=== PATIENT | male | born 1945 | race Caucasian/White ===

== ENCOUNTER 2022-09-04 08:58 | Outpatient (CLI) | payer MEDICARE, SELFPAY ==
[2022-09-04 19:06] LABS: Basophils Percent Auto 0.8 % (0.2-1.2); Eosinophils Absolute Auto 0.2 K/mm3 (0-0.3); Hematocrit 38.9 % (42.0-52.0); Hemoglobin 12.5 g/dL (14.0-18.0); Immature Granulocyte Absolute 0.01 K/mm3 (0.00-0.031); Immature Granulocyte Percent A 0.2 % (0-0.5); Lymphocytes Absolute Auto 0.84 K/mm3 (0.9-3.2); Mean Corpuscular HGB Conc 32.1 g/dl (32-36); Mean Corpuscular Hemoglobin 32.8 pg (26-34); Mean Corpuscular Volume 102.1 fl (80-100); Mean Platelet Volume 9.8 fl (7.4-10.4); Monocytes Absolute Auto 0.3 K/mm3 (0.1-0.6); Monocytes Percent Auto 6.9 % (2.6-8.5); Neutrophils Absolute Auto 3.6 K/mm3 (1.3-6.7); Neutrophils Percent Auto 72.1 % (45.5-73.1); Platelet Count Result 272 k/mm3 (150-375); Red Blood Count 3.81 M/mm3 (4.6-6.20); Red Cell Distribution Width 14.9 % (11.5-14.5); White Blood Count 4.9 K/mm3 (4.5-10.0)
[2022-09-04 19:46] LABS: Creatinine Urine 31.5 mg/dL
[2022-09-04 20:10] LABS: MALB Creatinine Ratio < 19.0 mg/g (0-30); Microalbumin Urine Random < 6.0 mg/L (0-16.7)
[2022-09-04 20:14] LABS: Alanine Aminotransferase 27 U/L (6-50); Albumin Level 4.5 g/dL (3.5-5.1); Alkaline Phosphatase 79 U/L (38-126); Anion Gap 15 mmol/L (8-16); Aspartate Amino Transferase 63 U/L (17-59); Bilirubin,Total 0.2 mg/dL (0.2-1.3); Blood Urea Nitrogen 17 mg/dL (9-20); Calcium 9.7 mg/dL (8.4-10.2); Carbon Dioxide 26 mmol/L (22-30); Chloride 98 mmol/L (98-107); Cholesterol 171 mg/dL (0-200); Estimated Glomerular Filt Rate > 60; Glucose 264 mg/dL (65-110); HDL Direct 45 mg/dL; Potassium 4.6 mmol/L (3.4-5.0); Sodium 139 mmol/L (137-145); Triglycerides 198 mg/dL (<150)
[2022-09-04 20:25] LABS: LDL Cholesterol Direct 64 mg/dL
[2022-09-04 21:02] LABS: Hemoglobin A1C 6.7 % (<5.7)
== END 2022-09-04 08:59 | disposition home or self-care (01) ==
PROVIDERS: PCP Internal Medicine; Visit Provider Internal Medicine
DX: E11.9 Type 2 diabetes mellitus without complications (principal); D64.9 Anemia, unspecified; D68.61 Antiphospholipid syndrome
CPT/HCPCS: 36415; 80053; 80061; 82043; 83036; 85025

== ENCOUNTER 2022-10-01 08:53 | Outpatient (CLI) | payer MEDICARE, SELFPAY ==
[2022-10-01 19:31] LABS: Alanine Aminotransferase 27 U/L (6-50); Albumin Level 4.6 g/dL (3.5-5.1); Alkaline Phosphatase 93 U/L (38-126); Aspartate Amino Transferase 36 U/L (17-59); Bilirubin,Total 0.3 mg/dL (0.2-1.3)
[2022-10-03 14:20] LABS: GGT 27 U/L (3-70)
== END 2022-10-01 08:54 | disposition home or self-care (01) ==
PROVIDERS: PCP Internal Medicine; Visit Provider Internal Medicine
DX: R74.8 Abnormal levels of other serum enzymes (principal)
CPT/HCPCS: 36415; 80076; 82977

== ENCOUNTER 2023-02-13 11:36 | Outpatient (CLI) | payer MEDICARE, SELFPAY ==
[2023-02-13 19:20] LABS: Hematocrit 39.8 % (42.0-52.0); Hemoglobin 12.8 g/dL (14.0-18.0); Mean Corpuscular HGB Conc 32.2 g/dl (32-36); Mean Corpuscular Hemoglobin 32.7 pg (26-34); Mean Corpuscular Volume 101.8 fl (80-100); Platelet Count Result 200 k/mm3 (150-375); Red Blood Count 3.91 M/mm3 (4.6-6.20); Red Cell Distribution Width 14.4 % (11.5-14.5); White Blood Count 4.8 K/mm3 (4.5-10.0)
[2023-02-13 19:35] LABS: Hemoglobin A1C 6.7 % (<5.7)
[2023-02-13 19:47] LABS: Alanine Aminotransferase 50 U/L (6-50); Alkaline Phosphatase 111 U/L (38-126); Anion Gap 4 mmol/L (8-16); Aspartate Amino Transferase 54 U/L (17-59); Bilirubin,Total 0.3 mg/dL (0.2-1.3); Blood Urea Nitrogen 14 mg/dL (9-20); Calcium 9.9 mg/dL (8.4-10.2); Carbon Dioxide 28 mmol/L (22-30); Chloride 103 mmol/L (98-107); Estimated Glomerular Filt Rate > 60; Glucose 108 mg/dL (65-110); Potassium 4.4 mmol/L (3.4-5.0); Sodium 135 mmol/L (137-145)
[2023-02-13 20:11] LABS: Creatinine Urine 86.7 mg/dL
[2023-02-13 20:16] LABS: MALB Creatinine Ratio 16.4 mg/g (0-30); Microalbumin Urine Random 14.2 mg/L (0-16.7)
== END 2023-02-13 11:37 | disposition home or self-care (01) ==
LOC: ANHGOSHLAB 11:37
PROVIDERS: PCP Internal Medicine; Visit Provider Internal Medicine
DX: D64.9 Anemia, unspecified (principal); E11.9 Type 2 diabetes mellitus without complications; D68.61 Antiphospholipid syndrome
CPT/HCPCS: 36415; 80053; 82043; 83036; 84443; 85027

== ENCOUNTER 2023-06-04 14:07 | Outpatient (CLI) | payer MEDICARE, SELFPAY ==
[2023-06-04 15:08] LABS: Basophils Percent Auto 0.8 % (0.2-1.2); Eosinophils Absolute Auto 0.1 K/mm3 (0-0.3); Eosinophils Percent Auto 2.2 % (0-4.4); Hematocrit 34.5 % (42.0-52.0); Immature Granulocyte Absolute 0.01 K/mm3 (0.00-0.031); Immature Granulocyte Percent A 0.2 % (0-0.5); Lymphocytes Absolute Auto 0.91 K/mm3 (0.9-3.2); Lymphocytes Percent Auto 18.2 % (18.3-44.2); Mean Corpuscular HGB Conc 31.9 g/dl (32-36); Mean Corpuscular Hemoglobin 31.5 pg (26-34); Mean Corpuscular Volume 98.9 fl (80-100); Mean Platelet Volume 9.6 fl (7.4-10.4); Monocytes Absolute Auto 0.3 K/mm3 (0.1-0.6); Monocytes Percent Auto 5.4 % (2.6-8.5); Neutrophils Absolute Auto 3.7 K/mm3 (1.3-6.7); Neutrophils Percent Auto 73.2 % (45.5-73.1); Platelet Count Result 229 k/mm3 (150-375); Red Blood Count 3.49 M/mm3 (4.6-6.20)
[2023-06-04 15:20] LABS: Alanine Aminotransferase 37 U/L (6-50); Albumin Level 3.9 g/dL (3.5-5.1); Alkaline Phosphatase 85 U/L (38-126); Anion Gap 5 mmol/L (8-16); Aspartate Amino Transferase 45 U/L (17-59); Bilirubin,Total 0.2 mg/dL (0.2-1.3); Blood Urea Nitrogen 19 mg/dL (9-20); Calcium 9.3 mg/dL (8.4-10.2); Carbon Dioxide 28 mmol/L (22-30); Chloride 103 mmol/L (98-107); Estimated Glomerular Filt Rate > 60; Glucose 169 mg/dL (65-110); Potassium 4.7 mmol/L (3.4-5.0); Sodium 136 mmol/L (137-145)
[2023-06-05 08:57] LABS: Immature Reticulocyte Fraction 28.1 % (3.0-15.9); Reticulocyte Hemoglobin Conten 32.3 pg (28.2-35.7); Reticulocyte Percent 2.05 % (0.7-4.3); Reticulocytes Absolute 0.07 M/mm3 (0.02-0.1)
== END 2023-06-04 14:08 | disposition home or self-care (01) ==
PROVIDERS: PCP Internal Medicine; Visit Provider Nurse Practitioner
DX: D64.9 Anemia, unspecified (principal)
CPT/HCPCS: 36415; 80053; 85025; 85046

== ENCOUNTER 2023-06-05 09:55 | Outpatient (CLI) | payer MEDICARE, SELFPAY ==
[2023-06-05 10:25] LABS: Immature Reticulocyte Fraction 22.7 % (3.0-15.9); Reticulocyte Hemoglobin Conten 30.8 pg (28.2-35.7); Reticulocyte Percent 2.12 % (0.7-4.3); Reticulocytes Absolute 0.08 M/mm3 (0.02-0.1)
[2023-06-05 10:26] LABS: Hemoglobin 11.4 g/dL (14.0-18.0)
[2023-06-05 10:39] LABS: INR 1.9; Prothrombin Time 22.8 Seconds (11.1-14.7)
[2023-06-05 10:59] LABS: Iron 55 ug/dL (49-181); Iron 60 ug/dL (49-181)
[2023-06-05 11:08] LABS: Percent Iron Saturation 12 % (20-50)
[2023-06-05 11:09] LABS: Percent Iron Saturation 11 % (20-50)
== END 2023-06-05 09:56 | disposition home or self-care (01) ==
PROVIDERS: PCP Internal Medicine; Visit Provider Nurse Practitioner
DX: D64.9 Anemia, unspecified (principal); D68.61 Antiphospholipid syndrome; Z87.19 Personal history of other diseases of the digestive system
CPT/HCPCS: 36415; 82728; 83540; 83550; 85014; 85018; 85046; 85610

== ENCOUNTER 2023-06-08 11:02 | Outpatient (CLI) | payer MEDICARE, SELFPAY ==
[2023-06-08 12:39] LABS: Basophils Percent Auto 0.6 % (0.2-1.2); Eosinophils Absolute Auto 0.1 K/mm3 (0-0.3); Eosinophils Percent Auto 1.7 % (0-4.4); Hematocrit 35.5 % (42.0-52.0); Hemoglobin 11.3 g/dL (14.0-18.0); Immature Granulocyte Absolute 0.03 K/mm3 (0.00-0.031); Immature Granulocyte Percent A 0.4 % (0-0.5); Lymphocytes Absolute Auto 0.77 K/mm3 (0.9-3.2); Lymphocytes Percent Auto 11.1 % (18.3-44.2); Mean Corpuscular HGB Conc 31.8 g/dl (32-36); Mean Corpuscular Hemoglobin 31.7 pg (26-34); Mean Corpuscular Volume 99.7 fl (80-100); Mean Platelet Volume 10.3 fl (7.4-10.4); Monocytes Absolute Auto 0.3 K/mm3 (0.1-0.6); Monocytes Percent Auto 4.5 % (2.6-8.5); Neutrophils Absolute Auto 5.6 K/mm3 (1.3-6.7); Neutrophils Percent Auto 81.7 % (45.5-73.1); Platelet Count Result 233 k/mm3 (150-375); Red Blood Count 3.56 M/mm3 (4.6-6.20); Red Cell Distribution Width 14.1 % (11.5-14.5); White Blood Count 6.9 K/mm3 (4.5-10.0)
== END 2023-06-08 11:03 | disposition home or self-care (01) ==
LOC: ANHLAB 11:03
PROVIDERS: PCP Internal Medicine; Visit Provider Nurse Practitioner
DX: D64.9 Anemia, unspecified (principal)
CPT/HCPCS: 36415; 85025

== ENCOUNTER 2023-06-30 10:33 | Outpatient (CLI) | payer MEDICARE, SELFPAY ==
[2023-06-30 20:13] LABS: Hemoglobin A1C 6.5 % (<5.7)
== END 2023-06-30 10:34 | disposition home or self-care (01) ==
LOC: ANHGOSHLAB 10:36
PROVIDERS: PCP Internal Medicine; Visit Provider Internal Medicine
DX: R53.83 Other fatigue (principal); R06.00 Dyspnea, unspecified; E11.9 Type 2 diabetes mellitus without complications; D64.9 Anemia, unspecified
CPT/HCPCS: 36415; 83036; 84443

== ENCOUNTER → 2023-06-30 10:46 | Outpatient (CLI) | payer MEDICARE, SELFPAY ==
--- NOTE | ~2023-06-30 | XR_ITS ---
Clinical Indication: Shortness of breath PA and lateral views of the chest: Comparison: 06/14/2015 Findings: The lungs are clear, without evidence of focal consolidation or pleural effusion. Cardiome diastinal silhouette is within normal limits. Bones and soft tissues are unremarkable. Impression: Normal chest. Reviewed, dictated and finalized at [facility]. Impression: Normal chest.
== END ==
PROVIDERS: PCP Internal Medicine; Visit Provider Internal Medicine
DX: R06.00 Dyspnea, unspecified (principal); R07.89 Other chest pain; R06.02 Shortness of breath
CPT/HCPCS: 71046

== ENCOUNTER 2023-07-01 12:46 | Outpatient (CLI) | payer MEDICARE, SELFPAY ==
[2023-07-01 13:46] LABS: D Dimer 0.24 ug/mL (<0.48)
[2023-07-01 13:53] LABS: NT Pro B Type Natriuretic Pept 35 pg/mL (19.9-100)
== END 2023-07-01 12:47 | disposition home or self-care (01) ==
PROVIDERS: PCP Internal Medicine; Visit Provider Internal Medicine
DX: D68.61 Antiphospholipid syndrome (principal); R06.00 Dyspnea, unspecified
CPT/HCPCS: 36415; 83880; 85380

== ENCOUNTER 2023-07-06 14:39 | Outpatient (CLI) | payer MEDICARE, SELFPAY ==
--- NOTE | 2023-07-06 14:51 | ECHO_ITS ---
Patient Info Name: Aayush Mendoza Age: 77 years : 1945 Gender: Male Ht: 70 in Wt: 205 lbs BSA: 2.17 m2 HR: 68 bpm BP: 148 / 82 mmHg Heart Rhythm: Sinus Rhythm Technical Quality: Fair Exam Date: 07/06/2023 3:03 PM Exam Location: [facility] Pulmonary Patient Status: Outpatient Admit Date: 07/06/2023 Staff Ordering Physician: Rosamaria Canseco NP Pipe Smoking Machine Offbearer: Keya Smith RDCS Attending Provider: Rosamaria Canseco NP Referring Physician: Ajith WAGNER; Exam Type: CA echo dop color flow w con Study Info Indications - unspecified right bundle brance block Complete two-dimensional, color flow and Doppler transthoracic echocardiogram is performed with contrast to opacify the left ventricle and to improve the deliniation of the left ventricle endocardial borders. Contrast/Agitated Saline Contrast/Ag. Saline: Definity Amount: 2.00 ml Administered By: Keya Smith [facility] Existing IV Access: Yes IV Access Condition: patent with no signs of infiltration Summary 1. Left ventricular chamber dimension is normal. 2. Definity contrast administered improved wall motion interpretation. 3. Left ventricular systolic function is normal, estimated at 55-60%. 4. There is mild concentric increased left ventricular wall thickness. 5. The left ventricular diastolic function is grade I diastolic dysfunction. 6. E/e' 9 is minimally elevated. 7. Left atrial chamber dimension is mildly enlarged. 8. There is mild aortic valve sclerosis. 9. There is trace mitral valve regurgitation. 10. There is mild tricuspid valve regurgitation. 11. No pulmonary hypertension, estimated pulmonary arterial systolic pressure is 18 mmHg. Left Ventricle E/e' 9 is minimally elevated. Definity contrast administered improved wall motion interpretation. Left ventricular chamber dimension is normal. Left ventricular systolic function is normal, estimated at 55-60%. There is mild concentric increased left ventricular wall thickness. The left ventricular diastolic function is grade I diastolic dysfunction. Right Ventricle Right ventricular chamber dimension is normal. Right ventricular systolic function is normal. Left Atria Left atrial chamber dimension is mildly enlarged. Right Atria Right atrial chamber dimension is normal. Aortic Valve The aortic valve is trileaflet. There is mild aortic valve sclerosis. There is no aortic valve stenosis. There is no aortic valve regurgitation. Pulmonic Valve There is no pulmonic regurgitation. Mitral Valve There is no mitral valve stenosis. There is trace mitral valve regurgitation. Tricuspid Valve There is mild tricuspid valve regurgitation. No pulmonary hypertension, estimated pulmonary arterial systolic pressure is 18 mmHg. Pericardium/Pleural There is no pericardial effusion. Inferior Vena Cava Normal inferior vena cava with >50% collapse upon inspiration consistent with normal right atrial pressure, 5 mmHg. Aorta The aortic root size at the sinus of Valsalva is normal. Left Ventricular Outflow Tract Name Value Normal LVOT 2D LVOT Diameter 2.07 cm LVOT Doppler LVOT Peak Gradient 4 mmHg LVOT Mean G
[2023-07-06] MEDS: PERFLUTREN LIPID MICROSPHERES 1.5 ML VIAL DILUTED TO 10 ML TOTAL VOLUME IV PUSH (15:45)
== END 2023-07-06 14:40 | disposition home or self-care (01) ==
LOC: ANHCARD 14:41
PROVIDERS: PCP Internal Medicine; Visit Provider Nurse Practitioner
DX: I45.10 Unspecified right bundle-branch block (principal); I08.3 Combined rheumatic disorders of mitral, aortic and tricuspid valves
CPT/HCPCS: C8929; Q9957

== ENCOUNTER 2023-08-06 09:23 | Outpatient (CLI) | payer MEDICARE, SELFPAY ==
[2023-08-06 18:40] LABS: INR 3.2; Prothrombin Time 35.4 Seconds (11.1-14.7)
[2023-08-06 19:11] LABS: Anion Gap 4 mmol/L (8-16); Blood Urea Nitrogen 13 mg/dL (9-20); Carbon Dioxide 29 mmol/L (22-30); Chloride 104 mmol/L (98-107); Estimated Glomerular Filt Rate > 60; Glucose 220 mg/dL (65-110); Potassium 5.2 mmol/L (3.4-5.0); Sodium 137 mmol/L (137-145)
[2023-08-06 19:37] LABS: Basophils Percent Auto 0.3 % (0.2-1.2); Eosinophils Absolute Auto 0.1 K/mm3 (0-0.3); Eosinophils Percent Auto 2.6 % (0-4.4); Hematocrit 39.9 % (42.0-52.0); Hemoglobin 12.3 g/dL (14.0-18.0); Immature Granulocyte Absolute 0.01 K/mm3 (0.00-0.031); Immature Granulocyte Percent A 0.3 % (0-0.5); Lymphocytes Absolute Auto 0.73 K/mm3 (0.9-3.2); Lymphocytes Percent Auto 18.6 % (18.3-44.2); Mean Corpuscular HGB Conc 30.8 g/dl (32-36); Mean Corpuscular Hemoglobin 30.2 pg (26-34); Mean Platelet Volume 10.6 fl (7.4-10.4); Monocytes Absolute Auto 0.3 K/mm3 (0.1-0.6); Monocytes Percent Auto 7.7 % (2.6-8.5); Neutrophils Absolute Auto 2.8 K/mm3 (1.3-6.7); Neutrophils Percent Auto 70.5 % (45.5-73.1); Platelet Count Result 225 k/mm3 (150-375); Red Blood Count 4.07 M/mm3 (4.6-6.20); Red Cell Distribution Width 15.1 % (11.5-14.5); White Blood Count 3.9 K/mm3 (4.5-10.0)
== END 2023-08-06 09:24 | disposition home or self-care (01) ==
PROVIDERS: PCP Internal Medicine; Visit Provider Clinical Nurse Specialist
DX: D64.9 Anemia, unspecified (principal); E11.9 Type 2 diabetes mellitus without complications; D68.61 Antiphospholipid syndrome
CPT/HCPCS: 36415; 80048; 85025; 85610

== ENCOUNTER 2023-08-10 08:57 | Outpatient (CLI) | payer MEDICARE, SELFPAY ==
--- NOTE | 2023-08-10 09:08 | EST_ITS ---
Patient Info Name: Aayush Mendoza Age: 77 years : 1945 Gender: Male Ht: 70 in Wt: 200 lbs BSA: 2.14 m2 HR: 66 bpm BP: 173 / 73 mmHg Heart Rhythm: Sinus Rhythm Exam Date: 08/10/2023 10:17 AM Exam Location: [facility] Stress Patient Status: Outpatient Admit Date: 08/10/2023 Staff Ordering Physician: Clifton Dailey DO Attending Provider: Clifton Dailey DO Exercise Technologist: Leanna Castro CT Exercise Physician: Artem Vizcarra DO Exam Type: CA stress test treadmill Study Info Indications R06.09 - Other forms of dyspnea A treadmill exercise stress test was performed. Summary 1. 1. Negative Iván exercise stress test for ischemic ST changes by ECG criteria. 2. 2. Reduced functional capacity, achieving 5 METs of workload. 3. 3. Baseline hypertension. 4. 4. Appropriate HR response to exercise. 5. 5. Appropriate HR recovery at 1 minute post exercise. 6. 6. No imaging with stress testing. 7. 7. Patient informed of the above results. Protocol: Iván Stress ECG Details Stage: REST Duration (min): 1 min : 54 sec Speed (mph): 0.0 Grade (%): 0 HR (bpm): 71 SBP (mmHg): 173 DBP (mmHg): 73 METS: --- Stage: REST Duration (min): 6 min : 50 sec Speed (mph): 0.0 Grade (%): 0 HR (bpm): 76 SBP (mmHg): 173 DBP (mmHg): 73 METS: --- Stage: STAGE 1 Duration (min): 1 min : 0 sec Speed (mph): 1.7 Grade (%): 10 HR (bpm): 100 SBP (mmHg): 173 DBP (mmHg): 73 METS: --- Stage: STAGE 1 Duration (min): 2 min : 0 sec Speed (mph): 1.7 Grade (%): 10 HR (bpm): 118 SBP (mmHg): 173 DBP (mmHg): 73 METS: --- Stage: STAGE 1 Duration (min): 3 min : 0 sec Speed (mph): 1.7 Grade (%): 10 HR (bpm): 123 SBP (mmHg): 191 DBP (mmHg): 80 METS: --- Stage: STAGE 2 Duration (min): 0 min : 30 sec Speed (mph): 2.5 Grade (%): 12 HR (bpm): 129 SBP (mmHg): 191 DBP (mmHg): 80 METS: --- Stage: RECOVERY Duration (min): 0 min : 29 sec Speed (mph): 0.0 Grade (%): 0 HR (bpm): 130 SBP (mmHg): 191 DBP (mmHg): 80 METS: --- Stage: RECOVERY Duration (min): 1 min : 29 sec Speed (mph): 0.0 Grade (%): 0 HR (bpm): 105 SBP (mmHg): 191 DBP (mmHg): 80 METS: --- Stage: RECOVERY Duration (min): 2 min : 29 sec Speed (mph): 0.0 Grade (%): 0 HR (bpm): 92 SBP (mmHg): 191 DBP (mmHg): 80 METS: --- Stage: RECOVERY Duration (min): 3 min : 5 sec Speed (mph): 0.0 Grade (%): 0 HR (bpm): 93 SBP (mmHg): 169 DBP (mmHg): 79 METS: --- Rest HR: 76 bpm Peak HR: 132 bpm Rest Sys BP: 173 mmHg Peak Sys BP: 191 mmHg Max Pred HR: 143 bpm % Max Pred HR: 92 % Target HR: 122 bpm Max RPP: 25,212 bpm*mmHg Artis Score: -2 Termination Reason: Reached target heart rate or workload Cardiac Symptoms: Shortness of breath Max ST Seg Deviation: 1.20 mm Total Time: 3 min : 30 sec Rest Sahni BP: 73 mmHg Peak Sahni BP: 80 mmHg Angina Score: None Total METS: 5.6 Resting ECG Sinus rhythm, RBBB. Stress ECG No ST changes.
== END 2023-08-10 08:58 | disposition home or self-care (01) ==
PROVIDERS: PCP Internal Medicine; Visit Provider Internal Medicine
DX: I45.10 Unspecified right bundle-branch block (principal); R53.83 Other fatigue; R68.89 Other general symptoms and signs; R06.00 Dyspnea, unspecified
CPT/HCPCS: 93017

== ENCOUNTER 2023-11-02 10:57 | Outpatient (CLI) | payer MEDICARE, SELFPAY ==
--- NOTE | ~2023-11-02 | US_ITS ---
EXAMINATION:US venous doppler LE RT INDICATION:Right leg pain TECHNIQUE: Multiple grayscale, color flow and Doppler images of the right lower extremity deep venous systems were obtained and reviewed. COMPARISON:08/17/2014 FINDINGS: The common femoral, superficial femoral and popliteal veins demonstrate normal respiratory variation, augmentation and compressibility. Color flow is also seen within the posterior tibial, pe roneal, greater saphenous and profunda veins. IMPRESSION: 1: No lower extremity deep venous thrombosis. Reviewed, dictated and finalized at location B. ER CLEANER
== END 2023-11-02 10:58 | disposition home or self-care (01) ==
PROVIDERS: PCP Internal Medicine; Visit Provider Internal Medicine
DX: M79.604 Pain in right leg (principal)
CPT/HCPCS: 93971

== ENCOUNTER 2024-02-02 07:55 | Outpatient (CLI) | payer MEDICARE, SELFPAY ==
[2024-02-02 13:08] LABS: Basophils Percent Auto 0.7 % (0.2-1.2); Eosinophils Absolute Auto 0.1 K/mm3 (0-0.3); Eosinophils Percent Auto 3.1 % (0-4.4); Hematocrit 39.6 % (42.0-52.0); Hemoglobin 12.3 g/dL (14.0-18.0); Immature Granulocyte Absolute 0.01 K/mm3 (0.00-0.031); Immature Granulocyte Percent A 0.2 % (0-0.5); Lymphocytes Absolute Auto 0.79 K/mm3 (0.9-3.2); Lymphocytes Percent Auto 18.9 % (18.3-44.2); Mean Corpuscular HGB Conc 31.1 g/dl (32-36); Mean Corpuscular Hemoglobin 30.9 pg (26-34); Mean Corpuscular Volume 99.5 fl (80-100); Mean Platelet Volume 10.1 fl (7.4-10.4); Monocytes Absolute Auto 0.3 K/mm3 (0.1-0.6); Monocytes Percent Auto 7.2 % (2.6-8.5); Neutrophils Absolute Auto 2.9 K/mm3 (1.3-6.7); Neutrophils Percent Auto 69.9 % (45.5-73.1); Platelet Count Result 188 k/mm3 (150-375); Red Blood Count 3.98 M/mm3 (4.6-6.20); Red Cell Distribution Width 14.6 % (11.5-14.5); White Blood Count 4.2 K/mm3 (4.5-10.0)
[2024-02-02 13:13] LABS: Alanine Aminotransferase 27 U/L (6-50); Albumin Level 3.9 g/dL (3.5-5.1); Alkaline Phosphatase 107 U/L (38-126); Anion Gap 5 mmol/L (8-16); Aspartate Amino Transferase 43 U/L (17-59); Bilirubin,Total 0.3 mg/dL (0.2-1.3); Blood Urea Nitrogen 20 mg/dL (9-20); Calcium 9.7 mg/dL (8.4-10.2); Carbon Dioxide 28 mmol/L (22-30); Chloride 103 mmol/L (98-107); Cholesterol 195 mg/dL (0-200); Estimated Glomerular Filt Rate > 60; Glucose 129 mg/dL (65-110); HDL Direct 43 mg/dL; Potassium 4.6 mmol/L (3.4-5.0); Sodium 136 mmol/L (137-145); Triglycerides 260 mg/dL (<150)
[2024-02-02 13:25] LABS: LDL Cholesterol Direct 83 mg/dL
[2024-02-02 13:44] LABS: Prostate Specific Antigen 0.7 ng/mL (< OR = 4.0)
[2024-02-02 17:20] LABS: Hemoglobin A1C 6.9 % (<5.7)
[2024-02-06 06:06] LABS: Apolipoprotein B 91 mg/dL (<90)
== END 2024-02-02 07:56 | disposition home or self-care (01) ==
LOC: ANHGOSHLAB 07:56
PROVIDERS: PCP Internal Medicine; Visit Provider Internal Medicine
DX: Z12.5 Encounter for screening for malignant neoplasm of prostate (principal); D64.9 Anemia, unspecified; D68.61 Antiphospholipid syndrome; E11.9 Type 2 diabetes mellitus without complications; Z87.19 Personal history of other diseases of the digestive system
CPT/HCPCS: 36415; 80053; 80061; 82172; 83036; 84153; 85025; G0103

== ENCOUNTER 2024-06-16 13:11 | Emergency (ER) | payer MEDICARE, SELFPAY ==
--- NOTE | ~2024-06-16 | US_ITS ---
EXAMINATION: US venous doppler LE DATE: 06/16/2024 14:12 INDICATION: Left lower limb swelling TECHNIQUE: Grayscale ultrasound images without and with compression and Doppler ultrasound images of the left lower extremity veins were obtained. COMPARISON: 10/02/2014 FINDINGS: Minimal peripheral nonocclusive thrombus with well-defined linear echogenic margins suggestive of chr onic thrombus at the left common femoral vein and in the previously thrombosed left popliteal vein. T he visualized portions of left profunda (deep) femoral vein and greater saphenous vein outflow as wel l as the previously thrombosed left femoral vein, peroneal veins and posterior tibial veins are now p atent. IMPRESSION: 1. Minimal peripheral nonocclusive thrombus versus venous web as chronic sequela of prior thrombus a t the left common femoral vein and popliteal vein. Reviewed, dictated and finalized at location A. IMPRESSION: 1. Minimal peripheral nonocclusive thrombus versus venous web as chronic seque la of prior thrombus at the left common femoral vein and popliteal vein.
[2024-06-16 13:14] VITALS: BP 129/64; PULSE 90; RESP 18; TEMP 36.3; O2SAT 96
--- NOTE | 2024-06-16 13:17 | ED.LOWEXIN ---
HPI - Extremity Injury (Lower) General Chief Complaint: Extremity Injury, Lower Stated Complaint: left calf swelling/pain Time Seen by Provider: 06/16/24 14:46 Focused HPI: 78-year-old male presents to the emergency room for sudden onset of left calf and lower extremity swelling. Patient has a history of DVTs. Currently anticoagulated on Coumadin. Denies any shortness of breath or difficulty breathing. GENERAL: Well-appearing, well-nourished, and in no acute distress. HEAD: Normocephalic, atraumatic. CHEST: Clear to auscultation. No respiratory distress. HEART: Regular rate and rhythm. NEURO: Alert and oriented x3. Patient screened in triage and initial orders placed. Additional care and disposition to be based upon diagnostic testing and treatment. Related Data Home Medications Medication Instructions Recorded Confirmed aspirin 81 mg tablet,delayed 81 mg PO DAILY 04/01/22 06/20/24 release (Adult Low Dose Aspirin) swomwpvrmjla-ffs-ohuds acid-vit 1 tablet PO DAILY 04/01/22 06/20/24 K-lycop 400 mcg-20 mcg-370 mcg tablet (Men's 50 Plus Multivitamin) omega-3 fatty acids 1,000 mg 1,000 mg PO DAILY 04/01/22 06/20/24 capsule gemfibrozil 600 mg tablet 600 mg PO DAILY 09/08/23 06/20/24 glipizide 10 mg tablet 10 mg PO DAILY 09/08/23 06/20/24 octreotide acetate 100 mcg/mL 100 mcg subcut .Monthlty 09/08/23 06/20/24 injection solution Allergies Allergy/AdvReac Type Severity Reaction Status Date / Time No Known Allergies Allergy Verified 06/20/24 07:32 [facility] Past Medical History Medical History Anemia Anti-phospholipid antibody syndrome Blood clotting disorder Encounter for monitoring Coumadin therapy Hyperlipidemia Hypertension 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 Type 2 diabetes mellitus Surgical History Surgical History H/O abdominal surgery H/O spinal fusion 2011 History of appendectomy Family History Family History Father Heart disease Mother Hypertension Lung cancer Sibling Diabetes mellitus Grandparent Diabetes mellitus Social History Social History Smoking packs per day: 2 Smoking cigarettes per day: 40.0 Smoking status: Former smoker Tobacco type: cigarettes Additional smoking assessment comments: Quit smoking 22 years ago Alcohol intake: current Substance use: never Do You Feel Safe in your Home?: Yes Lack of Transportation: No Lack of Food: Never True Current Housing: I Have Housing Concerned About Future Housing: No Difficulty Paying Gas/Electric Bills: No Difficulty Paying for Meds: No Currently Unemployed: No Education: Associate Degree Difficulty w/ Childcare or Family Care: No Course Vital Signs Vital signs: Vital Signs Temperature 36.3 C L 06/16/24 13:14 Pulse Rate 90 06/16/24 13:14 Respiratory Rate 18 06/16/24 13:14 Blood Pressure 129/64 06/16/24 13:14 Pulse Oximetry 96 06/16/24 13:14 Oxygen Delivery Room Air 06/16/24 13:14 Temperature 36.3 C L 06/16/24 13:14 Pulse Rate 74 06/16/24 15:42 Respiratory Rate 18 06/16/24 15:42 Blood Pressure 125/71 06/16/24 15:42 Pulse Oximetry 99 06/16/24 15:42 Oxygen Delivery Room Air 06/16/24 13:14 MDM - Extremity Injury (Lower) Lab Data 06/16/24 13:20 06/16/24 13:20 Labs: Lab Results 06/16/24 06/16/24 Range/Units 13:20 15:40 WBC 4.9 (4.5-10.0) K/mm3 RBC 3.88 L (4.6-6.20) M/mm3 Hgb 11.9 L (14.0-18.0) g/dL Hct 36.8 L (42.0-52.0) % MCV 94.8 (80-100) fl MCH 30.7 (26-34) pg MCHC 32.3 (32-36) g/dl RDW 18.1 H (11.5-14.5) % Plt Count 179 (150-375) k/mm3 MPV 10.1 (7.4-10.4) fl Immature Gran % (Auto) 0.2 (0-0.5) % Neut % (Auto)
[2024-06-16 13:26] LABS: Basophils Percent Auto 0.4 % (0.2-1.2); Eosinophils Absolute Auto 0.1 K/mm3 (0-0.3); Hematocrit 36.8 % (42.0-52.0); Hemoglobin 11.9 g/dL (14.0-18.0); Immature Granulocyte Absolute 0.01 K/mm3 (0.00-0.031); Immature Granulocyte Percent A 0.2 % (0-0.5); Lymphocytes Absolute Auto 0.76 K/mm3 (0.9-3.2); Lymphocytes Percent Auto 15.5 % (18.3-44.2); Mean Corpuscular HGB Conc 32.3 g/dl (32-36); Mean Corpuscular Hemoglobin 30.7 pg (26-34); Mean Corpuscular Volume 94.8 fl (80-100); Mean Platelet Volume 10.1 fl (7.4-10.4); Monocytes Absolute Auto 0.2 K/mm3 (0.1-0.6); Monocytes Percent Auto 3.5 % (2.6-8.5); Neutrophils Absolute Auto 3.9 K/mm3 (1.3-6.7); Neutrophils Percent Auto 79.4 % (45.5-73.1); Platelet Count Result 179 k/mm3 (150-375); Red Blood Count 3.88 M/mm3 (4.6-6.20); Red Cell Distribution Width 18.1 % (11.5-14.5); White Blood Count 4.9 K/mm3 (4.5-10.0)
[2024-06-16 13:36] LABS: Alanine Aminotransferase 29 U/L (6-50); Alkaline Phosphatase 162 U/L (38-126); Anion Gap 9 mmol/L (4-12); Aspartate Amino Transferase 38 U/L (17-59); Bilirubin,Total 0.5 mg/dL (0.2-1.3); Blood Urea Nitrogen 16 mg/dL (9-20); Carbon Dioxide 27 mmol/L (22-30); Chloride 96 mmol/L (98-107); Estimated CRCL calculation 66 ml/min; Estimated Glomerular Filt Rate > 60; Glucose 419 mg/dL (65-110); Potassium 4.3 mmol/L (3.4-5.0); Sodium 132 mmol/L (137-145)
[2024-06-16 13:38] LABS: INR 3.9
[2024-06-16 13:39] LABS: Partial Thromboplastin Time 34.4 Seconds (22.3-36.8)
[2024-06-16 14:29] VITALS: BP 130/78; PULSE 84; RESP 18; O2SAT 95
--- NOTE | 2024-06-16 14:47 | ED.LOWEXIN ---
HPI - Extremity Injury (Lower) General Chief Complaint: Extremity Injury, Lower Stated Complaint: left calf swelling/pain Time Seen by Provider: 06/16/24 14:46 Source: patient Mode of arrival: ambulatory Limitations: no limitations History of Present Illness HPI Narrative: 78 years old white male drove himself to the emergency room complaining of pain at the left calf muscle noticed it yesterday. History of left leg deep vein thrombosis and currently on Coumadin, INR was 4.2 few days ago, patient denies any trauma. History of lower legs cramps, currently on medication for it. Patient believes his left lower leg is a little bit more uncomfortable over the last 2 days. No fever, no chills no nausea no vomiting no shortness of breath no chest pain. Related Data Home Medications Medication Instructions Recorded Confirmed aspirin 81 mg tablet,delayed 81 mg PO DAILY 04/01/22 02/08/24 release (Adult Low Dose Aspirin) xmbnijecryoo-tis-etdwn acid-vit 1 tablet PO DAILY 04/01/22 02/08/24 K-lycop 400 mcg-20 mcg-370 mcg tablet (Men's 50 Plus Multivitamin) omega-3 fatty acids 1,000 mg 1,000 mg PO DAILY 04/01/22 02/08/24 capsule gemfibrozil 600 mg tablet 600 mg PO DAILY 09/08/23 02/08/24 glipizide 10 mg tablet 10 mg PO DAILY 09/08/23 02/08/24 octreotide acetate 100 mcg/mL 100 mcg subcut .Monthlty 09/08/23 02/08/24 injection solution Allergies Allergy/AdvReac Type Severity Reaction Status Date / Time No Known Allergies Allergy Verified 02/08/24 08:32 Review of Systems Review of Systems: All systems reviewed & are unremarkable except as noted in HPI and below PMFSH Past Medical History Medical History Anemia Anti-phospholipid antibody syndrome Blood clotting disorder Encounter for monitoring Coumadin therapy Hyperlipidemia Hypertension 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 Type 2 diabetes mellitus Surgical History Surgical History H/O abdominal surgery H/O spinal fusion 2010 History of appendectomy Family History Family History Father Heart disease Mother Hypertension Lung cancer Sibling Diabetes mellitus Grandparent Diabetes mellitus Social History Social History Smoking packs per day: 2 Smoking cigarettes per day: 40.0 Smoking status: Former smoker Tobacco type: cigarettes Additional smoking assessment comments: Quit smoking 22 years ago Alcohol intake: current Substance use: never Do You Feel Safe in your Home?: Yes Lack of Transportation: No Lack of Food: Never True Current Housing: I Have Housing Concerned About Future Housing: No Difficulty Paying Gas/Electric Bills: No Difficulty Paying for Meds: No Currently Unemployed: No Education: Associate Degree Difficulty w/ Childcare or Family Care: No Exam Narrative: General appearance: Well-developed, well-nourished Skin: Normal color Head: Normocephalic, nontraumatic Eyes: Clear conjunctiva ENT: Oropharynx normal, ears normal, nose normal Neck: Supple, nontender Chest and respiratory: Airway patent, no respiratory distress, no accessory muscle use Heart: Regular rate/rhythm Abdomen: Soft, nontender, no organomegaly, quiet bowel sounds Vascular: Normal peripheral pulses, normal capillary refill. Musculoskeletal: Left lower leg showed diffuse tenderness posteriorly, slightly swollen compared to the right leg, no bruises, no rash. Neurologic: Alert and oriented ?3, [employer] is normal as tested, no gross motor deficit
[2024-06-16] MEDS: INSULIN HUMAN REGULAR (*BKC) 100 UNITS/ML 8 UNITS IV PUSH (15:11)
[2024-06-16 15:42] VITALS: BP 125/71; PULSE 74; RESP 18; O2SAT 99
--- NOTE | 2024-06-16 15:42 | PC.NURSE ---
BS 311
[2024-06-16 15:43] LABS: Glucose Point of Care 311 mg/dl (65-105)
== END 2024-06-16 15:44 | disposition home or self-care (01) ==
PROVIDERS: Nurse Practitioner Family; Emergency Provider Emergency Medicine; PCP Internal Medicine
DX: M79.662 Pain in left lower leg (principal); E11.65 Type 2 diabetes mellitus with hyperglycemia; I10 Essential (primary) hypertension; E78.5 Hyperlipidemia, unspecified; E11.42 Type 2 diabetes mellitus with diabetic polyneuropathy; D64.9 Anemia, unspecified; D68.61 Antiphospholipid syndrome; Z98.1 Arthrodesis status; Z86.718 Personal history of other venous thrombosis and embolism; Z87.891 Personal history of nicotine dependence; Z79.01 Long term (current) use of anticoagulants; Z79.84 Long term (current) use of oral hypoglycemic drugs
CPT/HCPCS: 36415; 80053; 82948; 85025; 85610; 85730; 93971; 96374; 99284; J1815

== ENCOUNTER 2024-06-20 08:21 | Outpatient (CLI) | payer MEDICARE, SELFPAY ==
[2024-06-20 08:48] LABS: Magnesium 1.7 mg/dL (1.6-2.3)
[2024-06-20 08:51] LABS: INR 2.4; Prothrombin Time 26.2 Seconds (11.1-14.7)
[2024-06-20 08:57] LABS: Hemoglobin A1C 13.6 % (<5.7)
== END 2024-06-20 08:22 | disposition home or self-care (01) ==
PROVIDERS: PCP Internal Medicine; Visit Provider Internal Medicine
DX: D64.9 Anemia, unspecified (principal); E13.42 Other specified diabetes mellitus with diabetic polyneuropathy; G47.62 Sleep related leg cramps; Z79.01 Long term (current) use of anticoagulants; Z51.81 Encounter for therapeutic drug level monitoring
CPT/HCPCS: 36415; 82728; 83036; 83735; 85610

== ENCOUNTER 2024-09-12 08:28 | Emergency (ER) | payer MEDICARE, SELFPAY ==
[2024-09-12 08:40] VITALS: BP 149/67; PULSE 79; RESP 18; TEMP 36.3; O2SAT 98
--- NOTE | 2024-09-12 09:05 | ED_ITS ---
HPI - Extremity Problem General Chief complaint: Extremity Problem,Nontraumatic Stated complaint: Big Toe Right Foot Time Seen by Provider: 09/12/24 08:51 Source: patient and RN notes reviewed Mode of arrival: ambulatory Limitations: no limitations History of Present Illness HPI Narrative: Patient presents today complaining of redness and swelling to his right great toe. States he injured the toenail 8-9 months ago and describes a subungual hematoma. Four days ago he caught the tip of the toenail on his sock and bent it back causing partial nail avulsion. Yesterday the area at the base of the toe became reddened and swollen. Patient is diabetic neuropathy and does not have much sensation. He has a podiatry appointment in 9-10 days but was concerned about infection and wanted to be evaluated today. He has been trying to keep the toenail in place with a large Band-Aid. Patient is also on warfarin for blood clotting disorder Related Data Home Medications Medication Instructions Recorded Confirmed aspirin 81 mg tablet,delayed 81 mg PO DAILY 04/01/22 09/12/24 release (Adult Low Dose Aspirin) twbioqgljnqz-aex-renpo acid-vit 1 tablet PO DAILY 04/01/22 09/12/24 K-lycop 400 mcg-20 mcg-370 mcg tablet (Men's 50 Plus Multivitamin) omega-3 fatty acids 1,000 mg 1,000 mg PO DAILY 04/01/22 09/12/24 capsule gemfibrozil 600 mg tablet 600 mg PO DAILY 09/08/23 09/12/24 glipizide 10 mg tablet 10 mg PO DAILY 09/08/23 09/12/24 octreotide acetate 100 mcg/mL 100 mcg subcut .Monthlty 09/08/23 09/12/24 injection solution Allergies Allergy/AdvReac Type Severity Reaction Status Date / Time No Known Allergies Allergy Verified 09/12/24 09:00 Review of Systems Review of Systems: CONSTITUTIONAL: Denies body aches, fever, chills, or sweats. EYES: Denies visual changes, redness, or discharge. ENT: Denies rhinorrhea, congestion, sore throat, or otalgia. CARDIOVASCULAR: Denies chest pain, palpitations, or edema. RESPIRATORY: Denies cough or dyspnea. GASTROINTESTINAL: Denies abdominal pain, nausea, vomiting, or diarrhea. GENITOURINARY: Denies dysuria or hematuria. SKIN: Denies rash, itching, or wounds. MUSCULOSKELETAL: Right great toe redness and partial nail avulsion NEUROLOGIC: Denies headache, numbness, tingling, or weakness. PSYCH: Denies depression or anxiety. 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 Type 2 diabetes mellitus Surgical History Surgical History H/O abdominal surgery H/O spinal fusion 2011 History of appendectomy Family History Family History Father Heart disease Mother Hypertension Lung cancer Sibling Diabetes mellitus Grandparent Diabetes mellitus Social History Social History Smoking packs per day: 2 Smoking cigarettes per day: 40.0 Smoking status: Former smoker Tobacco type: cigarettes Additional smoking assessment comments: Quit smoking 22 years ago Alcohol intake: current Substance use: never Do You Feel Safe in your Home?: Yes Lack of Transportation: No Lack of Food: Never True Current Housing: I Have Housing Concerned About Future Housing: No Difficulty Paying Gas/Electric Bills: No Difficulty Paying for Meds: No Currently Unemployed: No Education: Associate Degree Difficulty w/ Childcare or Family Care: No Comments At time of signature, I have reviewed and agree with nursing past medical, surgical, social and family history unless otherwise noted. Please see nursing chart for further information. There is no relevant family history pertinent to the presenting complaint Exam Narrative: GENERAL: Well-appearing, well-nourished, and in no acute distress. HEAD: Normocephalic, atraumatic. EYES: EOMI. No redness or drainage. Conjunctivae normal. ENT: Mucous membranes pink and moist. NECK: Normal AROM. CHEST: No respiratory distress. EXTREMITIES: Right great toe: Dorsum of the toe near the base of the nail is darkly erythematous. The toe itself is slightly edematous. The toenail is thick and yellow. It is loose, attached only at the base of the nailbed. Sensation is diminished. Capillary refill normal. Steri-Strips and benzoin applied over the nail to keep the nail in place. SKIN: Warm, dry, no rash. Capillary refill normal. Normal skin turgor. NEURO: No focal deficits. Alert and oriented x3. Gait steady. PSYCH: Normal affect. No signs of depression or anxiety. Course Course Level of Care: Express Care Visit Vital Signs Vital signs: Vital Signs Temperature 97.3 F L 09/12/24 08:40 Pulse Rate 79 09/12/24 08:40 Respiratory Rate 18 09/12/24 08:40 Blood Pressure 149/67 H 09/12/24 08:40 Pulse Oximetry 98 09/12/24 08:40 Oxygen Delivery Room Air 09/12/24 08:40 Temperature 97.3 F L 09/12/24 08:40 Pulse Rate 79 09/12/24 08:40 Respiratory Rate 18 09/12/24 08:40 Blood Pressure 149/67 H 09/12/24 08:40 Pulse Oximetry 98 09/12/24 08:40 Oxygen Delivery Room Air 09/12/24 08:40 Reviewed MDM - Extremity (Nontraumatic) MDM Narrative Medical decision making narrative: Benzoin and Steri-Strips were applied to keep the nail in place. Patient was prescribed Keflex for cellulitis. He will follow-up with podiatry as soon as possible. Anticipatory guidance given. Differential Diagnosis Differential diagnosis: Likely cellulitis and other (Abscess, partial nail avulsion, onychomycosis) Critical Care Time Critical Care Time Critical Care Time: No Discharge Plan Discharge Clinical Impression: Infection of great toe Patient Disposition: Home, Self-Care Condition: Stable Instructions: Antibiotic Form, Cellulitis (ED) Additional Instructions: Please take the Keflex as prescribed until gone. Steri-Strips have been placed over your toenail to try to keep it in place until you can see your gas meter mechanic. Replace the Steri-Strips as needed. If symptoms worsen to include red streaking up your toe or foot, fever, increased redness or swelling, please go to the ER immediately for further evaluation. Your blood pressure was elevated above 120/80 today at Urgent Care. This puts you above the threshold for follow up. Please schedule a followup visit with your personal physician as soon as possible, for further evaluation and treatment. Even blood pressure exceeding 120/80 may indicate pre-hypertension. Prescriptions: New cephalexin 500 mg capsule 500 mg PO Q6H 7 Days Qty: 28 0RF No Action omega-3 fatty acids 1,000 mg capsule 1,000 mg PO DAILY aspirin [Adult Low Dose Aspirin] 81 mg tablet,delayed release (DR/EC) 81 mg PO DAILY Men's 50 Plus Multivitamin 400-20-370 mcg tablet 1 tablet PO DAILY gemfibrozil 600 mg tablet 600 mg PO DAILY Hold Instructions: .Provider Order glipizide 10 mg tablet 10 mg PO DAILY octreotide acetate 100 mcg/mL solution 100 mcg subcut .Monthlty Hold Instructions: Patient Condition Rx Instructions: Injection Once monthly metformin 1,000 mg tablet 1,000 mg PO BID Qty: 200 1RF omeprazole 20 mg capsule,delayed release(DR/EC) 20 mg PO DAILY Qty: 100 1RF gabapentin 300 mg capsule See Rx Instructions .ROUTE .COMPLEX Qty: 200 1RF Dose Instruction: TAKE 2 CAPSULES BY MOUTH DAILY Rx Instructions: TAKE 2 CAPSULES BY MOUTH DAILY lisinopril-hydrochlorothiazide 10-12.5 mg tablet See Rx Instructions .ROUTE .COMPLEX Qty: 100 1RF Dose Instruction: TAKE 1 TABLET BY MOUTH DAILY Rx Instructions: TAKE 1 TABLET BY MOUTH DAILY ezetimibe 10 mg tablet See Rx Instructions .ROUTE .COMPLEX Qty: 100 1RF Dose Instruction: TAKE 1 TABLET BY MOUTH DAILY Rx Instructions: TAKE 1 TABLET BY MOUTH DAILY pravastatin 20 mg tablet See Rx Instructions .ROUTE .COMPLEX Qty: 100 1RF Dose Instruction: TAKE 1 TABLET BY MOUTH DAILY Rx Instructions: TAKE 1 TABLET BY MOUTH DAILY levothyroxine 25 mcg tablet See Rx Instructions .ROUTE .COMPLEX Qty: 100 1RF Dose Instruction: TAKE 1 TABLET BY MOUTH DAILY Rx Instructions: TAKE 1 TABLET BY MOUTH DAILY alcohol swabs Pads, Medicated 1 pad topical BID Qty: 200 0RF (DME) Advanced Gluc Meter Test Strip Strip See Rx Instructions .Route Qty: 200 0RF Rx Instructions: As directed (DME) blood-glucose meter [Blood Glucose Monitoring] Kit See Rx Instructions .Route Qty: 1 0RF Rx Instructions: As directed pioglitazone 45 mg tablet 45 mg PO DAILY Qty: 100 1RF (DME) lancets [OneTouch Delica Plus Lancet] 33 gauge misc See Rx Instructions .Route Qty: 100 2RF Rx Instructions: Use to check BS once daily warfarin 3 mg tablet 3 mg PO DAILY Qty: 30 2RF insulin degludec [Tresiba FlexTouch U-200] 200 unit/mL (3 mL) insulin pen 20 unit subcut DAILY Qty: 9 2RF Rx Instructions: Inject 20 units once daily; Have food such as yogurt and fruit on hand incase need Follow-up/Referrals: Clifton Dailey DO [Primary Care Provider] - Time of Disposition: 09:08
== END 2024-09-12 09:10 | disposition home or self-care (01) ==
PROVIDERS: Emergency Provider Nurse Practitioner; PCP Internal Medicine
DX: L08.9 Local infection of the skin and subcutaneous tissue, unspecified (principal); Z87.891 Personal history of nicotine dependence; R78.5 Finding of other psychotropic drug in blood; I10 Essential (primary) hypertension; E11.42 Type 2 diabetes mellitus with diabetic polyneuropathy; Z79.82 Long term (current) use of aspirin
CPT/HCPCS: 99213; G0463

== ENCOUNTER 2024-09-19 11:26 | Outpatient (CLI) | payer MEDICARE, SELFPAY ==
[2024-09-19 16:19] LABS: Alanine Aminotransferase 35 U/L (6-50); Alkaline Phosphatase 170 U/L (38-126); Anion Gap 3 mmol/L (4-12); Aspartate Amino Transferase 58 U/L (17-59); Bilirubin,Total 0.6 mg/dL (0.2-1.3); Blood Urea Nitrogen 14 mg/dL (9-20); Calcium 9.5 mg/dL (8.4-10.2); Carbon Dioxide 33 mmol/L (22-30); Chloride 100 mmol/L (98-107); Estimated Glomerular Filt Rate > 60; Glucose 211 mg/dL (65-110); Potassium 4.5 mmol/L (3.4-5.0); Sodium 136 mmol/L (137-145)
[2024-09-19 16:59] LABS: Basophils Percent Auto 0.8 % (0.2-1.2); Eosinophils Absolute Auto 0.1 K/mm3 (0-0.3); Eosinophils Percent Auto 2.5 % (0-4.4); Hematocrit 40.7 % (42.0-52.0); Lymphocytes Absolute Auto 1.15 K/mm3 (0.9-3.2); Lymphocytes Percent Auto 28.8 % (18.3-44.2); MALB Creatinine Ratio 32.2 mg/g (0-30); Mean Corpuscular HGB Conc 31.9 g/dl (32-36); Mean Corpuscular Hemoglobin 32.3 pg (26-34); Mean Platelet Volume 10.6 fl (7.4-10.4); Microalbumin Urine Random 26.1 mg/L (0-16.7); Monocytes Absolute Auto 0.2 K/mm3 (0.1-0.6); Monocytes Percent Auto 5.3 % (2.6-8.5); Neutrophils Absolute Auto 2.5 K/mm3 (1.3-6.7); Neutrophils Percent Auto 62.6 % (45.5-73.1); Platelet Count Result 202 k/mm3 (150-375); Red Blood Count 4.03 M/mm3 (4.6-6.20); Red Cell Distribution Width 14.4 % (11.5-14.5)
[2024-09-19 18:13] LABS: Hemoglobin A1C 8.8 % (<5.7)
== END 2024-09-19 11:27 | disposition home or self-care (01) ==
PROVIDERS: PCP Internal Medicine; Visit Provider Internal Medicine
DX: E13.42 Other specified diabetes mellitus with diabetic polyneuropathy (principal); D68.61 Antiphospholipid syndrome
CPT/HCPCS: 36415; 80053; 82043; 83036; 85025

== ENCOUNTER 2024-12-27 08:03 | Outpatient (CLI) | payer MEDICARE, SELFPAY ==
[2024-12-27 13:36] LABS: Basophils Percent Auto 0.7 % (0.2-1.2); Eosinophils Absolute Auto 0.1 K/mm3 (0-0.3); Eosinophils Percent Auto 2.6 % (0-4.4); Hematocrit 39.4 % (42.0-52.0); Hemoglobin 12.6 g/dL (14.0-18.0); Lymphocytes Percent Auto 25.6 % (18.3-44.2); Mean Corpuscular Volume 103.1 fl (80-100); Mean Platelet Volume 10.7 fl (7.4-10.4); Monocytes Absolute Auto 0.2 K/mm3 (0.1-0.6); Monocytes Percent Auto 6.6 % (2.6-8.5); Neutrophils Absolute Auto 1.8 K/mm3 (1.3-6.7); Neutrophils Percent Auto 64.5 % (45.5-73.1); Platelet Count Result 184 k/mm3 (150-375); Red Blood Count 3.82 M/mm3 (4.6-6.20); Red Cell Distribution Width 14.8 % (11.5-14.5); White Blood Count 2.7 K/mm3 (4.5-10.0)
[2024-12-27 14:40] LABS: Alanine Aminotransferase 29 U/L (6-50); Albumin Level 3.8 g/dL (3.5-5.1); Alkaline Phosphatase 147 U/L (38-126); Anion Gap 2 mmol/L (4-12); Aspartate Amino Transferase 47 U/L (17-59); Bilirubin,Total 0.4 mg/dL (0.2-1.3); Blood Urea Nitrogen 18 mg/dL (9-20); Calcium 9.6 mg/dL (8.4-10.2); Carbon Dioxide 34 mmol/L (22-30); Chloride 100 mmol/L (98-107); Cholesterol 177 mg/dL (0-200); Estimated Glomerular Filt Rate > 60; Glucose 167 mg/dL (65-110); HDL Direct 49 mg/dL; Potassium 4.6 mmol/L (3.4-5.0); Sodium 136 mmol/L (137-145); Triglycerides 241 mg/dL (<150)
[2024-12-27 14:51] LABS: LDL Cholesterol Direct 59 mg/dL
[2024-12-27 18:27] LABS: Hemoglobin A1C 8.4 % (<5.7)
== END 2024-12-27 08:04 | disposition home or self-care (01) ==
LOC: ANHGOSHLAB 08:05
PROVIDERS: PCP Internal Medicine; Visit Provider Internal Medicine
DX: D68.61 Antiphospholipid syndrome (principal); E11.9 Type 2 diabetes mellitus without complications; D64.9 Anemia, unspecified; E03.9 Hypothyroidism, unspecified; R74.8 Abnormal levels of other serum enzymes
CPT/HCPCS: 36415; 80053; 80061; 83036; 84075; 84080; 84443; 85025

== ENCOUNTER 2025-02-13 09:59 | Outpatient (CLI) | payer MEDICARE, SELFPAY ==
--- NOTE | ~2025-02-13 | XR_ITS ---
MODIFIED ESOPHAGRAM HISTORY: Dysphagia. TECHNIQUE: Modified barium esophagram was performed on 02/13/2025. I administered fluoroscopy and perf ormed the exam with speech pathologist. Patient was seated for lateral fluoroscopic imaging for carlos stion of thin liquids, pudding, solids and quantified amounts, followed by thin liquids in uncontroll ed amounts. This was recorded on tape. A single fluoroscopic spot image was also recorded. The DAP fo r this procedure was 0.7 Gycm2. The amount of fluoroscopy time used during this procedure was 1.2 min utes. FINDINGS: Oral stage: Adequate function. Pharyngeal stage: Prominent anterior osteophytes at C3-C4 which cleared mass effect upon the posterio r wall of the pharynx contribute increased vallecular residue. There is shallow laryngeal penetration which clears without aspiration. Cervical/esophageal stage: Adequate function. IMPRESSION: Pharyngeal dysphagia with shallow laryngeal penetration at risk of but without observed a spiration. Please correlate with speech pathologist findings and specific feeding recommendations. Reviewed, dictated and finalized at location A. IMPRESSION: Pharyngeal dysphagia with shallow laryngeal penetration at risk of but without observed aspiration. Please correlate with speech pathologist findi ngs and specific feeding recommendations.
--- OUTSIDE RECORDS SUMMARY | 2025-02-13 11:24 | XMS_ITS | Patient Health Record ---
Author Organization [facility], Address [address] [facility] [address] [place] [address] Care Team Providers Care Chair Name Role Phone Devang CORRIGAN, Noe Primary Care Provider Unavaila ble Reason For Referral No Information Medications Medication SIG (Take, Route, Frequency, Duration) Notes Start Date End Date Status glipiZIDE 03/16/2017 Active pravastatin 03/16/2017 Active Lisinopril-hydroCHLOROthiaz anthony 10-12.5 MG Oral 03/16/2017 Active warfarin 03/16/2017 Active Metformin 03/16/2017 Active Problems Problem Type SNOMED Code ICD Code Onset Dates Problem Status W/U Status Risk Notes Problem 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
--- OUTSIDE RECORDS SUMMARY | 2025-02-13 11:24 | XMS_ITS | Clinical Summary ---
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 Name Role Phone Clifton Dailey DO Primary Care Provider [phone] Allergies No known active allergies Medications metFORMIN 625 mg tablet Metformin 03/16/20 17 Active warfarin (COUMADIN) 0.5 mg suspension warfarin 03/16/20 17 Active ezetimibe (ZETIA) 10 mg tablet 06/05/20 23 Active gabapentin (NEURONTIN) 300 mg capsule 06/05/20 23 Active glimepiride (AmaryL) 2 mg tablet 10/17/2015maryl, po solid 2 mg TabletPOdailyCurrent Medication 10/17/20 15 Active levothyroxine (SYNTHROID) 25 mcg tablet 06/05/20 23 Active lisinopril-hy droCHLOROthia zide (ZESTORETIC) 10-12.5 mg per tablet Oral 10/17/20 15 Active octreotide 100 mcg/mL injection 10/17/2015Octreotide acetate, syringe 100 mcg/ml Syringe (ml)SQas directedInject 1 syringe (100mcg) SQ eyaskx3211/16/2014Continu e 11/16/20 14 Active omeprazole (PriLOSEC) 20 mg capsule 05/15/20 23 Active pioglitazone (ACTOS) 45 mg tablet 05/13/20 23 Active TRESIBA 200 unit/mL (3 mL) pen for injection INJECT 20 UNITS UNDER THE SKIN ONCE DAILY. HAVE FOOD SUCH YOGURT AND FRUIT ON HAND INCASE NEEDED 06/21/20 Active OneTouch Ultra Test strip as directed 10/24/20 24 Active bisacodyl EC (Gentle Laxative, bisacodyl,) 5 mg EC tablet TAKE 1 TABLET ONCE NEEDED FOR CONSTIPATION A ctive diclofenac sodium (Voltaren Arthritis Pain) 1 % gel APPLY 2 GRAMS TO THE AFFECTED AREA(S) BY TOPICAL ROUTE 4 TIMES PER DAY 08/13/20 21 Active escitalopram (LEXAPRO) 10 mg tablet Active gemfibroziL (LOPID) 600 mg tablet Active HYDROcodone-a cetaminophen (NORCO) 5-325 mg per tablet TAKE 1 TABLET BY MOUTH EVERY 6 HOURS NEEDED FOR PAIN FOR 3 DAYS Activ e polyethylene glycol (polyethylene glycol-electr olytes) 236-22.74-6.7 4 -5.86 gram solution USE DIRECTED DRINK BY MOUTH 240ML EVERY 10 MINUTES 1 DAY Active tavaborole 5 % solution with applicator APPLY TO AFFECTED NAIL(S) ONCE DAILY 09/15/20 24 Active pravastatin (PRAVACHOL) 20 mg tablet 10/04/20 24 Active Active Problems Problem Noted Date Diagnosed Date Iron deficiency anemia due to chronic blood loss 07/15/2023 AVM (arteriovenous malformation) 07/15/2023 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 Thrombophilia 10/17/2015 Personal history of venous thrombosis and emboli sm 09/12/2015 Angiodysplasia of intestine with hemorrhage 11/30 Type 2 diabetes mellitus 04/15/2014 Overview (03/04/2017): DMII WO CMP UNCNTRLD Hypertension 04/15/2014 Overview (03/06/2017): HYPERTENSION NOS Pure hypercholesterolemia 04/15/2014 Overview (03/06/2017): PURE HYPERCHOLESTEROLEM Encounters Date Type Department Care Team Description 01/24/2025 2:30 PM CLINICAL UNIT COORDINATOR Lab [address] [address] AVM (arteriovenous malformation); Iron deficiency anemia due to chronic blood loss 01/23/[address] [place] [address] Natanael Parrish MD 12/26/2024 2:15 PM CLINICAL UNIT COORDINATOR Lab [address] [place] [address] AVM (arteriovenous malformation); Iron deficiency anemia due to chronic blood loss 11/28/2024 11:00 AM CLINICAL UNIT COORDINATOR Clinical Support [address] [place] [address] AVM (arteriovenous malformation); Iron deficiency anemia due to chronic blood loss 11/28/2024 10:45 AM CLINICAL UNIT COORDINATOR Office Visit [facility] Oncology [address] [place] [address] Medical Office [address] [place] [address] Natanael Parrish MD AVM (arteriovenous malformation); Iron deficiency anemia due to chronic blood loss 11/28/2024 10:15 AM CLINICAL UNIT COORDINATOR Lab [address] [place] [address] AVM (arteriovenous malformation); Iron deficiency anemia due to chronic blood loss from Last 3 Months Immunizations Immunization Administration Dates Next Due Influenza, Quadrivalent, Hig h Dose, Preservative Free, Intrr 09/10/2023,08/26/2022 Influenza, Trivalent, High D ose, Split, Preservative Free, Intramuscular 08/16/2015,2013 Influenza, Trivalent, IM (MDV) 09/08/2014 Influenza, Unspecified 10/17/2015,2014,07/27/2015,05/02,02/07/2015,01/10/2015,12/13/2014 ,11/15/2014,10/18/2014,10/04/2014,07/01,04/26/2014 Pneumococcal Conjugate Pcv20 12/24/2022 Tdap 08/11/2022 ZOSTER LIVE 10/17/2015,09/07/2015 ZOSTER Recombinant 02/23/2023,12/24/2022 Surgical History Surgery Date Site/Laterality Comments APPENDECTOMY Appendectomy COLONOSCOPY Medical History Medical History Date Comments Hyperlipidemia Hyperlipidemia Diabetes mellitus (HCC) Diabetes Hypertension Hypertension Diabetes mellitus (HCC) diabetes mellitus Hx Other Medical htn, dm, hx of DVT, lupus anticoagulant, H. pylori; Comments: [facility] [place] 11/07/2014 - Hx Other Medical appy, back surg zurdo; Comments: [facility] [place] 11/07/2014 - Antiphospholipid syndrome Anemia Iron deficiency anemia Iron deficiency anemia Family History Medical History Relation Name Comments Diabetes type II Other Family hist ory of Diabetes -Type II; Other Other Family history of heart disease, DM; Relation Name Status Comments Other Social History Tobacco Use Types Packs/Day Years Used Date Smoking Tobacco: Former Alcohol Use Standard Drinks/Week Comments Yes 0 (1 standard drink = 0.6 oz pur e alcohol) AUDIT-C Answer Date Recorded Q1: How often do you have a drink containing alcohol? 4 or more times a week 11/28/2024 Q2: How many drinks containi ng alcohol do you have on a typical day when you are drinking? 1 or 2 Q3: How often do you have si x or more drinks on one occasion? Never 11/28/2024 Sex and Gender Information Value Date Recorded Sex Assigned at Not on file Legal Sex Male 10:38 AM CLINICAL UNIT COORDINATOR Gender Identity Not on file Sexual Orientation Not on file Obstetrics History Last Filed Vital Signs Vital Sign Reading Time Taken Comments Blood Pressure 137/62 01/24/2025 2:41 PM CLINICAL UNIT COORDINATOR Pulse 91 01/24/2025 2:41 PM CLINICAL UNIT COORDINATOR Temperature 36.5 C (97.7 F) 01/24/2025 2:41 PM CLINICAL UNIT COORDINATOR Respiratory Rate 20 01/24/2025 2:41 PM CLINICAL UNIT COORDINATOR Oxygen Saturation 99% 01/24/2025 2:41 PM CLINICAL UNIT COORDINATOR Inhaled Oxygen Concentration - - Weight 90.4 kg (199 lb 4.8 oz) 01/24/2025 2:41 P M CLINICAL UNIT COORDINATOR Height 177.8 cm (5' 10 ) 11/28/2024 10:52 AM CLINICAL UNIT COORDINATOR Body Mass Index 28.6 11/28/2024 10:52 AM CLINICAL UNIT COORDINATOR Plan of Treatment Health Maintenance Due Date Last Done Comments Albumin Creatinine Ratio, Urine 1945 Depression Screening 1945 Fall Risk Assessment 1945 Hepatitis C Screening 1945 Dilated Eye Exam 1945 Foot Exam 1945 Lipid Panel 1945 Hepatitis B Screening 1963 Abdominal Aortic Aneurysm (A AA) Screen 2010 Well Visit 65+ 2010 Covid-19 Vaccine (5 - 2023-2 5 season) 2024 11/04/2023, 08/12/2022, 06/09/2022, Additional history exists Influenza Vaccine (#1) 2024 , 08/26/2022, 10/17/2015, Additional history exists Hemoglobin A1C 02/01/2025 08/04/2024, 07/07/2024 eGFR 01/24/2026 01/24/2025, 12/01, 11/28/2024, Additional history exists DTaP/Tdap/Td Vaccine (2 - Td or Tdap) 08/11/2032 08/11/2022 Pneumococcal vaccine 65+ Completed 12/24/2022 Zoster Vaccine Completed 02/23/2023, 12/01, 10/17/2015, Additional history exists Procedures Procedure Name Priority Date/Time Associated Diagnosis Comments EGFR Routine 01/24/2025 2:40 PM CLINICAL UNIT COORDINATOR AVM (arteriovenous malformation) Iron deficiency anemia due to chronic blood loss DIFFERENTIAL AUTO Routine 01/24/2025 2:4 0 PM CLINICAL UNIT COORDINATOR AVM (arteriovenous malformation) Iron deficiency anemia due to chronic blood loss COMPREHENSIVE METABOLIC PANEL Routine 01/24/2025 2:40 PM CLINICAL UNIT COORDINATOR AVM (arteriovenous malformation) Iron deficiency anemia due to chronic blood loss FERRITIN Routine 01/24/2025 2:40 PM CLINICAL UNIT COORDINATOR AVM (arteriovenous malformation) Iron deficiency anemia due to chronic blood loss IRON PROFILE W/ IBC Routine 01/24/2025 2 :40 PM CLINICAL UNIT COORDINATOR AVM (arteriovenous malformation) Iron deficiency anemia due to chronic blood loss CBC WITH AUTO DIFFERENTIAL Routine 01/24/2025 2:40 PM CLINICAL UNIT COORDINATOR AVM (arteriovenous malformation) Iron deficiency anemia due to chronic blood loss EGFR Routine 12/26/2024 2:15 PM CLINICAL UNIT COORDINATOR AVM (arteriovenous malformation) Iron deficiency anemia due to chronic blood loss DIFFERENTIAL AUTO Routine 12/26/2024 2:1 5 PM CLINICAL UNIT COORDINATOR AVM (arteriovenous malformation) Iron deficiency anemia due to chronic blood loss CBC WITH AUTO DIFFERENTIAL Routine 12/26/2024 2:15 PM CLINICAL UNIT COORDINATOR AVM (arteriovenous malformation) Iron deficiency anemia due to chronic blood loss COMPREHENSIVE METABOLIC PANEL Routine 12/26/2024 2:15 PM CLINICAL UNIT COORDINATOR AVM (arteriovenous malformation) Iron deficiency anemia due to chronic blood loss FERRITIN Routine 12/26/2024 2:15 PM CLINICAL UNIT COORDINATOR AVM (arteriovenous malformation) Iron deficiency anemia due to chronic blood loss IRON PROFILE W/ IBC Routine 12/26/2024 2 :15 PM CLINICAL UNIT COORDINATOR AVM (arteriovenous malformation) Iron deficiency anemia due to chronic blood loss EGFR Routine 11/28/2024 10:25 AM CLINICAL UNIT COORDINATOR AVM (arteriovenous malformation) Iron deficiency anemia due to chronic blood loss DIFFERENTIAL AUTO Routine 11/28/2024 10: 25 AM CLINICAL UNIT COORDINATOR AVM (arteriovenous malformation) Iron deficiency anemia due to chronic blood loss CBC WITH AUTO DIFFERENTIAL Routine 11/28/2024 10:25 AM CLINICAL UNIT COORDINATOR AVM (arteriovenous malformation) Iron deficiency anemia due to chronic blood loss COMPREHENSIVE METABOLIC PANEL Routine 11/28/2024 10:25 AM CLINICAL UNIT COORDINATOR AVM (arteriovenous malformation) Iron deficiency anemia due to chronic blood loss IRON PROFILE W/ IBC Routine 11/28/2024 1 0:25 AM CLINICAL UNIT COORDINATOR AVM (arteriovenous malformation) Iron deficiency anemia due to chronic blood loss FERRITIN Routine 11/28/2024 10:25 AM CLINICAL UNIT COORDINATOR AVM (arteriovenous malformation) Iron deficiency anemia due to chronic blood loss HEMOGLOBIN A1C Routine 08/04/2024 9:05 AM CDT Hyperglycemia due to diabetes mellitus (HCC) from Last 3 Months or Most Recently Relevant to Health Maintenance Results * eGFR (01/24/2025 2:40 PM CLINICAL UNIT COORDINATOR) eGFR 87 >=60 mL/min/1. 73 m2 Comment: Interpretive Data Reference Interval Normal >/= 90 mL/min/1.73m2 Mildly decreased* 60 - 89 mL/min/1.73m2 Mildly to moderately decreased 45 - 59 mL/min/1.73m2 Moderately to severely decreased 30 - 44 mL/min/1.73m2 Severely decreased 15 - 29 mL/min/1.73m2 Kidney Failure < 15 mL/min/1.73m2 *Relative to young adult level Estimated glomerular filtration rate is determined by the 2020 CKD-EPI equation recommended by the National Kidney Foundation (A Unifying Approach to GFR Estimation: Recommendations of the NKF-ASK Task Force on Reassessing the Inclusion of Race in Diagnosing Kidney Disease, JASN 2020). The CKD-EPI equation should not be used for patients with unstable renal function and has not been validated in children and those over 70. Current interpretive data was last reviewed 2021. Testing performed by: [facility], [address] [facility], [place], [address] Blood 01/24/2025 2:40 PM CLINICAL UNIT COORDINATOR 01/24/2025 2:55 PM CLINICAL UNIT COORDINATOR us Natanael Parrish MD LAB BLOOD ORDERABLES Johana l Result [facility] ([place]) [address] [facility] Department [place] [address] * Differential, auto (01/24/2025 2:40 PM CLINICAL UNIT COORDINATOR) Neutrophil abs 2.9 1.5 - 6.5 K/cumm Comment:Testing performed by : [facility] [place], [address] [facility], Medical Office [address], [place] [address] Imm gran abs 0.0 0.0 - 0.1 K/cumm [facility] ([place]) Comment:Testing performed by : [facility] [address], Medical Office [facility] [address], [place] [address] Lymphocyte abs 0.9 0.8 - 3.3 K/cumm [facility] ([place]) Comment:Testing performed by : [facility] [address], Medical Office [facility] [address], [place] [address] Monocyte abs 0.2 0.2 - 0.8 K/cumm [facility] ([place]) Comment:Testing performed by : [facility] [address], Medical Office [facility] [address], [place] [address] Eosinophil abs 0.1 0.0 - 0.5 K/cumm [facility] ([place]) Comment:Testing performed by : [facility] [address], Medical Office [facility] [address], [place] [address] Basophil abs 0.0 0.0 - 0.1 K/cumm [facility] ([place]) Comment:Testing performed by : [facility] [address], Medical Office [facility] [address], [place] [address] Neutrophil pct 71.1 % [facility] ([place]) Comment: Interpretive Data Percent cell count reference ranges are not reported, since discordance with absolute values may lead to misinterpretation of CBC data. Current Interpretive Data was last revised on 2022. Testing performed by: [facility] [address], Medical Office [facility] [address] [facility] [address], [place] [address] Imm gran pct 0.0 % [facility] ([place]) Comment: Interpretive Data Percent cell count reference ranges are not reported, since discordance with absolute values may lead to misinterpretation of CBC data. Current Interpretive Data was last revised on 2022. Testing performed by: [facility] [address], Medical Office [facility] [address], [place] [address] Lymphocyte pct 21.2 % [facility] ([place]) Comment: Interpretive Data Percent cell count reference ranges are not reported, since discordance with absolute values may lead to misinterpretation of CBC data. Current Interpretive Data was last revised on 2022. Testing performed by: [facility] [address], Medical Office [facility] [address], [place] [address] Monocyte pct 5.8 % [facility] ([place]) Comment: Interpretive Data Percent cell count reference ranges are not reported, since discordance with absolute values may lead to misinterpretation of CBC data. Current Interpretive Data was last revised on 2022. Testing performed by: [facility] [address], Medical Office [facility] [address], [place] [address] Eosinophil pct 1.7 % [facility] ([place]) Comment: Interpretive Data Percent cell count reference ranges are not reported, since discordance with absolute values may lead to misinterpretation of CBC data. Current Interpretive Data was last revised on 2022. Testing performed by: [facility] [address], Medical Office [facility] [address], [place] [address] Basophil pct 0.2 % [facility] ([place]) Comment: Interpretive Data Percent cell count reference ranges are not reported, since discordance with absolute values may lead to misinterpretation of CBC data. Current Interpretive Data was last revised on 2022. Testing performed by: [facility] [address], Medical Office [facility] [address], [place] [address] Blood 01/24/2025 2:40 PM CLINICAL UNIT COORDINATOR 01/24/2025 2:41 PM CLINICAL UNIT COORDINATOR us Natanael Parrish MD LAB BLOOD ORDERABLES Johana l Result [facility] ([place]) [address] [facility] Department [place] [address] * (ABNORMAL) Iron profile w/ IBC (01/24/2025 2:40 PM CLINICAL UNIT COORDINATOR) Iron 57 50 - 150 mcg/dL Comment:Testing performed by : [place], [address] TIBC 388 250 - 400 mcg/dL [facility] ([place]) Comment:Testing performed by : [facility] [place], [place], [address] Transferrin saturation 15(L) 20 - 50 % [facility] ([place]) Comment:Testing performed by : [facility] [place], [address] Blood 01/24/2025 2:40 PM CLINICAL UNIT COORDINATOR 01/24/2025 2:55 PM CLINICAL UNIT COORDINATOR Natanael Parrish MD LAB BLOOD ORDERABLES Johana marc Result [facility] ([place]) [address] [facility] Department [place] [address] * (ABNORMAL) CBC with auto differential (01/24/2025 2:40 PM CLINICAL UNIT COORDINATOR) WBC 4.1 3.8 - 9.9 K/cumm Comment:Testing performed by : [facility] [address], Medical Office [facility] [address], [place] [address] Hgb 12.3(L) 13.0 - 17.5 g/dL [facility] ([place]) Comment:Testing performed by : [facility] [address], Medical Office [facility] [address], [place] [address] Hct 36.9(L) 38.9 - 50.3 % [facility] ([place]) Comment:Testing performed by : [facility] [address], Medical Office [facility] [address], [place] [address] Plt 171 150 - 400 K/cumm [facility] ([place]) Comment:Testing performed by : [facility] [address], Medical Office [facility] [address], [place] [address] MPV 9.7 9.1 - 12.3 fL [facility] ([place]) Comment:Testing performed by : [facility] [address], Medical Office [address], [place] [address] RBC 3.66(L) 4.30 - 5.80 M/cumm [facility] ([place]) Comment:Testing performed by : [facility] [address], Medical Office [address], [place] [address] MCV 100.8(H) 81.3 - 96.4 fL [facility] ([place]) Comment:Testing performed by : [facility] [address], Medical Office [address], [place] [address] MCH 33.6(H) 27.1 - 33.3 pg [facility] ([place]) Comment:Testing performed by : [facility] [address], Medical Office [address], [place] [address] MCHC 33.3 32.3 - 35.7 g/dL [facility] ([place]) Comment:Testing performed by : [facility] [address], Medical Office [address], [place] [address] RDW CV 14.2 11.1 - 14.9 % [facility] ([place]) Comment:Testing performed by : [facility] [address], Medical Office [address], [place] [address] RDW SD 53.1(H) 35.7 - 48.1 fL [facility] ([place]) Comment:Testing performed by : [facility] [address], Medical Office [address], [place] [address] NRBC abs Not Measured 0.00 - 0.01 K/cumm [facility] ([place]) Comment:Testing performed by : [facility] [address], Medical Office [address], [place] [address] Blood 01/24/2025 2:40 PM CLINICAL UNIT COORDINATOR 01/24/2025 2:41 PM CLINICAL UNIT COORDINATOR us Natanael Parrish MD LAB BLOOD ORDERABLES Johana l Result Performing Organization Address City/[facility]/ZIP Co de Phone Number [facility] ([place]) [address] [facility] Department [place] [address] * Ferritin (01/24/2025 2:40 PM CLINICAL UNIT COORDINATOR) Ferritin 86 30 - 400 ng/mL Comment:Testing performed by : [facility], [address] [facility], [place], [address] Blood 01/24/2025 2:40 PM CLINICAL UNIT COORDINATOR 01/24/2025 2:55 PM CLINICAL UNIT COORDINATOR us Natanael Parrish MD LAB BLOOD ORDERABLES Johana l Result [facility] ([place]) [address] [facility] Department [place] [address] * (ABNORMAL) Comprehensive metabolic panel (01/24/2025 2:40 PM CLINICAL UNIT COORDINATOR) Sodium 138 135 - 145 mmol/L Comment:Testing performed by : [facility], [facility], [place], [address] Potassium, pl 4.4 3.3 - 4.9 mmol/L [facility] ([place]) Comment:Testing performed by : [facility] [place] [place], [place], [address] Chloride 103 97 - 110 mmol/L [facility] ([place]) Comment:Testing performed by : [facility], [facility], [place], [address] CO2 26 22 - 32 mmol/L [facility] ([place]) Comment:Testing performed by : [facility] [place] [place], [place], [address] Anion gap 9 2 - 15 mmol/L [facility] ([place] Comment:Testing performed by : [facility], [facility], [place], [address] BUN 19 6 - 25 mg/dL [facility] ([place]) Comment:Testing performed by : [facility] [place] [place], [place], [address] Creatinine 0.88 0.80 - 1.30 mg/dL [facility] ([place]) Comment:Testing performed by : [facility] [place] [place], [place], [address] Glucose 155 70 - 199 mg/dL [facility] ([place] Comment: Interpretive Data Fasting glucose >/= 126 mg/dl is diagnostic for diabetes. Fasting is defined as no caloric intake for at least 8 hours. Fasting glucose between 100 mg/dl to 125 mg/dl is diagnostic of prediabetes. In a patient with classic symptoms of hyperglycemia or hyperglycemic crisis, a random glucose >/= 200 mg/dl is diagnostic for diabetes. In the absence of unequivocal hyperglycemia, results should be confirmed by repeat testing. The classification and Diagnosis of Diabetes Diabetes Care 2021; 46: S19-S40. Current interpretive data was last revised 2022. Testing performed by: [facility] [place] [place], [place], [address] Calcium 9.5 8.5 - 10.3 mg/dL [facility] ([place]) Comment:Testing performed by : [facility], [facility], [place], [address] Bilirubin, total <0.2 0.1 - 1.2 mg/dL [facility] ([place]) Comment:Testing performed by : [facility] [place] [place], [place], [address] Protein, pl 7.8 6.5 - 8.5 g/dL [facility] ([place]) Comment:Testing performed by : [facility] [place] [place], [place], [address] Albumin 3.7 3.5 - 5.0 g/dL [facility] ([place]) Comment:Testing performed by : [facility] [place] [place], [place], [address] Alk phos 134(H) 40 - 130 Units/L [facility] ([place]) Comment:Testing performed by : [facility] [place] [place], [place], [address] ALT 26 7 - 55 Units/L [facility] ([place]) Comment:Testing performed by : [facility] [place] [place], [place], [address] AST 31 10 - 50 Units/L [facility] ([place]) Comment: Slightly Hemolyzed Specimen Testing performed by: [facility] [place] [place], [place], [address] Blood 01/24/2025 2:40 PM CLINICAL UNIT COORDINATOR 01/24/2025 2:55 PM CLINICAL UNIT COORDINATOR us Natanael Parrish MD LAB BLOOD ORDERABLES Johana tran Result [facility] ([place]) [address] [facility] [place] [address] * eGFR (12/26/2024 2:15 PM CLINICAL UNIT COORDINATOR) eGFR 80 >=60 mL/min/1. 73 m2 Comment: Interpretive Data Reference Interval Normal >/= 90 mL/min/1.73m2 Mildly decreased* 60 - 89 mL/min/1.73m2 Mildly to moderately decreased 45 - 59 mL/min/1.73m2 Moderately to severely decreased 30 - 44 mL/min/1.73m2 Severely decreased 15 - 29 mL/min/1.73m2 Kidney Failure < 15 mL/min/1.73m2 *Relative to young adult level Estimated glomerular filtration rate is determined by the 2020 CKD-EPI equation recommended by the National Kidney Foundation (A Unifying Approach to GFR Estimation: Recommendations of the NKF-ASK Task Force on Reassessing the Inclusion of Race in Diagnosing Kidney Disease, JASN 2020). The CKD-EPI equation should not be used for patients with unstable renal function and has not been validated in children and those over 70. Current interpretive data was last reviewed 2021. Testing performed by: [facility], [address] [facility], [place], [address] Blood 12/26/2024 2:15 PM CLINICAL UNIT COORDINATOR 12/26/2024 2:47 PM CLINICAL UNIT COORDINATOR us Natanael Parrish MD LAB BLOOD ORDERABLES Johana l Result [facility] ([place]) 1 [facility] [place] [address] * (ABNORMAL) Differential, auto (12/26/2024 2:15 PM CLINICAL UNIT COORDINATOR) Neutrophil abs 2.1 1.5 - 6.5 K/cumm Comment:Testing performed by : [facility] [address], Medical Office [place] [address], [place] [address] Imm gran abs 0.0 0.0 - 0.1 K/cumm [facility] ([place]) Comment:Testing performed by : [facility] [address], Medical Office [facility] [address], [place] [address] Lymphocyte abs 0.7(L) 0.8 - 3.3 K/cumm [facility] ([place]) Comment:Testing performed by : [facility] [address], Medical Office [facility] [address], [place] [address] Monocyte abs 0.2 0.2 - 0.8 K/cumm [facility] ([place]) Comment:Testing performed by : [facility] [address], Medical Office [facility] [address], [place] [address] Eosinophil abs 0.1 0.0 - 0.5 K/cumm [facility] ([place]) Comment:Testing performed by : [facility] [address], Medical Office [facility] [address], [place] [address] Basophil abs 0.0 0.0 - 0.1 K/cumm [facility] ([place]) Comment:Testing performed by : [facility] [address], Medical Office [facility] [address], [place] [address] Neutrophil pct 69.3 % [facility] ([place]) Comment: Interpretive Data Percent cell count reference ranges are not reported, since discordance with absolute values may lead to misinterpretation of CBC data. Current Interpretive Data was last revised on 2022. Testing performed by: [facility] [address], Medical Office [facility] [address] [facility] [address], [place] [address] Imm gran pct 0.0 % [facility] ([place]) Comment: Interpretive Data Percent cell count reference ranges are not reported, since discordance with absolute values may lead to misinterpretation of CBC data. Current Interpretive Data was last revised on 2022. Testing performed by: [facility] [address], Medical Office [facility] [address], [place] [address] Lymphocyte pct 22.0 % [facility] ([place]) Comment: Interpretive Data Percent cell count reference ranges are not reported, since discordance with absolute values may lead to misinterpretation of CBC data. Current Interpretive Data was last revised on 2022. Testing performed by: [facility] [address], Medical Office [facility] [address], [place] [address] Monocyte pct 5.8 % [facility] ([place]) Comment: Interpretive Data Percent cell count reference ranges are not reported, since discordance with absolute values may lead to misinterpretation of CBC data. Current Interpretive Data was last revised on 2022. Testing performed by: [facility] [address], Medical Office [facility] [address], [place] [address] Eosinophil pct 2.3 % [facility] ([place]) Comment: Interpretive Data Percent cell count reference ranges are not reported, since discordance with absolute values may lead to misinterpretation of CBC data. Current Interpretive Data was last revised on 2022. Testing performed by: [facility] [address], Medical Office [address], [place] [address] Basophil pct 0.6 % [facility] ([place]) Comment: Interpretive Data Percent cell count reference ranges are not reported, since discordance with absolute values may lead to misinterpretation of CBC data. Current Interpretive Data was last revised on 2022. Testing performed by: [facility] [address], Medical Office [address], [place] [address] Blood 12/26/2024 2:15 PM CLINICAL UNIT COORDINATOR 12/26/2024 2:19 PM CLINICAL UNIT COORDINATOR us Natanael Parrish MD LAB BLOOD ORDERABLES Johana l Result Performing Organization Address City/[facility] Co de Phone Number [facility] ([place]) [facility] Department [place] [address] * Iron profile w/ IBC (12/26/2024 2:15 PM CLINICAL UNIT COORDINATOR) Iron 104 50 - 150 mcg/dL Comment:Testing performed by : [facility] [place], [place], [address] TIBC 395 250 - 400 mcg/dL [facility] ([place]) Comment:Testing performed by : [facility], [place], [address] Transferrin saturation 26 20 - 50 % [facility] ([place]) Comment:Testing performed by : [place], [address] Blood 12/26/2024 2:15 PM CLINICAL UNIT COORDINATOR 12/26/2024 2:47 PM CLINICAL UNIT COORDINATOR us Natanael Parrish MD LAB BLOOD ORDERABLES Johana l Result [facility] ([place]) 1 [facility] Department [place] [address] * (ABNORMAL) CBC with auto differential (12/26/2024 2:15 PM CLINICAL UNIT COORDINATOR) WBC 3.1(L) 3.8 - 9.9 K/cumm Comment:Testing performed by : [facility] [address], Medical Office [address], [place] [address] Hgb 12.6(L) 13.0 - 17.5 g/dL [facility] ([place]) Comment:Testing performed by : [facility] [address], Medical Office [address], [place] [address] Hct 38.0(L) 38.9 - 50.3 % [facility] ([place]) Comment:Testing performed by : [facility] [address], Medical Office [facility] [address], [place] [address] Plt 169 150 - 400 K/cumm [facility] ([place]) Comment:Testing performed by : [facility] [address], Medical Office [facility] [address], [place] [address] MPV 9.8 9.1 - 12.3 fL [facility] ([place]) Comment:Testing performed by : [facility] [address], Medical Office [facility] [address], [place] [address] RBC 3.77(L) 4.30 - 5.80 M/cumm [facility] ([place]) Comment:Testing performed by : [facility] [address], Medical Office [facility] [address], [place] [address] MCV 100.8(H) 81.3 - 96.4 fL [facility] ([place]) Comment:Testing performed by : [facility] [address], Medical Office [facility] [address], [place] [address] MCH 33.4(H) 27.1 - 33.3 pg [facility] ([place]) Comment:Testing performed by : [facility] [address], Medical Office [facility] [address], [place] [address] MCHC 33.2 32.3 - 35.7 g/dL [facility] ([place]) Comment:Testing performed by : [facility] [address], Medical Office [facility] [address], [place] [address] RDW CV 14.3 11.1 - 14.9 % [facility] ([place]) Comment:Testing performed by : [facility] [address], Medical Office [address], [place] [address] RDW SD 53.9(H) 35.7 - 48.1 fL [facility] ([place]) Comment:Testing performed by : [facility] [address], Medical Office [facility] [address], [place] [address] NRBC abs Not Measured 0.00 - 0.01 K/cumm [facility] ([place]) Comment:Testing performed by : [facility] [address], Medical Office [facility] [address], [place] [address] Blood 12/26/2024 2:15 PM CLINICAL UNIT COORDINATOR 12/26/2024 2:19 PM CLINICAL UNIT COORDINATOR us Natanael Parrish MD LAB BLOOD ORDERABLES Johana l Result [facility] ([place]) 1 [facility] Department [place] [address] * Ferritin (12/26/2024 2:15 PM CLINICAL UNIT COORDINATOR) Ferritin 91 30 - 400 ng/mL Comment:Testing performed by : [facility], [facility], [place], [address] Blood 12/26/2024 2:15 PM CLINICAL UNIT COORDINATOR 12/26/2024 2:47 PM CLINICAL UNIT COORDINATOR us Natanael Parrish MD LAB BLOOD ORDERABLES Johana l Result [facility] ([place]) 1 [facility] Department [place] [address] * (ABNORMAL) Comprehensive metabolic panel (12/26/2024 2:15 PM CLINICAL UNIT COORDINATOR) Sodium 136 135 - 145 mmol/L Comment:Testing performed by : [place], [address] Potassium, pl 4.5 3.3 - 4.9 mmol/L [facility] ([place]) Comment:Testing performed by : [facility] [place], [place], [address] Chloride 100 97 - 110 mmol/L [facility] ([place]) Comment:Testing performed by : [facility], [facility], [place], [address] CO2 30 22 - 32 mmol/L [facility] ([place]) Comment:Testing performed by : [facility], [facility], [place], [address] Anion gap 6 2 - 15 mmol/L [facility] ([place]) Comment:Testing performed by : [facility], [facility], [place], [address] BUN 12 6 - 25 mg/dL [facility] ([place]) Comment:Testing performed by : [facility], [facility], [place], [address] Creatinine 0.96 0.80 - 1.30 mg/dL [facility] ([place]) Comment:Testing performed by : [facility], [facility], [place], [address] Glucose 228(H) 70 - 199 mg/dL [facility] ([place]) Comment: Interpretive Data Fasting glucose >/= 126 mg/dl is diagnostic for diabetes. Fasting is defined as no caloric intake for at least 8 hours. Fasting glucose between 100 mg/dl to 125 mg/dl is diagnostic of prediabetes. In a patient with classic symptoms of hyperglycemia or hyperglycemic crisis, a random glucose >/= 200 mg/dl is diagnostic for diabetes. In the absence of unequivocal hyperglycemia, results should be confirmed by repeat testing. The classification and Diagnosis of Diabetes Diabetes Care 202; 46: S19-S40. Current interpretive data was last revised 2022. Testing performed by: [facility] [place], [place], [address] Calcium 9.7 8.5 - 10.3 mg/dL [facility] ([place]) Comment:Testing performed by : [facility] [place], [place], [address] Bilirubin, total 0.3 0.1 - 1.2 mg/dL [facility] ([place]) Comment:Testing performed by : [facility] [place], [place], [address] Protein, pl 8.3 6.5 - 8.5 g/dL [facility] ([place]) Comment:Testing performed by : [facility] [place], [place], [address] Albumin 3.9 3.5 - 5.0 g/dL [facility] ([place]) Comment:Testing performed by : [facility] [address], [place], [address] Alk phos 138(H) 40 - 130 Units/L [facility] ([place]) Comment:Testing performed by : [facility] [place], [place], [address] ALT 22 7 - 55 Units/L [facility] ([place]) Comment:Testing performed by : [facility], [facility], [place], [address] AST 28 10 - 50 Units/L [facility] ([place]) Comment:Testing performed by : [facility], [facility], [place], [address] Blood 12/26/2024 2:15 PM CLINICAL UNIT COORDINATOR 12/26/2024 2:47 PM CLINICAL UNIT COORDINATOR us Natanael Parrish MD LAB BLOOD ORDERABLES Johana l Result [facility] ([place]) 1 [facility] Department [place] [address] * eGFR (11/28/2024 10:25 AM CLINICAL UNIT COORDINATOR) eGFR >90 >=60 mL/min/1. 73 m2 Comment: Interpretive Data Reference Interval Normal >/= 90 mL/min/1.73m2 Mildly decreased* 60 - 89 mL/min/1.73m2 Mildly to moderately decreased 45 - 59 mL/min/1.73m2 Moderately to severely decreased 30 - 44 mL/min/1.73m2 Severely decreased 15 - 29 mL/min/1.73m2 Kidney Failure < 15 mL/min/1.73m2 *Relative to young adult level Estimated glomerular filtration rate is determined by the 2020 CKD-EPI equation recommended by the National Kid[employer] (A Unifying Approach to GFR Estimation: Recommendations of the NKF-ASK Task Force on Reassessing the Inclusion of Race in Diagnosing Kidney Disease, JASN 2020). The CKD-EPI equation should not be used for patients with unstable renal function and has not been validated in children and those over 70. Current interpretive data was last reviewed 2021. Testing performed by: [facility], [facility], [place], [address] Blood 11/28/2024 10:2 5 AM CLINICAL UNIT COORDINATOR 11/28/2024 10:45 AM CLINICAL UNIT COORDINATOR us Rosy Jeronimo CREDIT PRODUCT ANALYST LAB BLOOD ORDERABLES Final Result [facility] ([place]) 1 [facility] Department [place] [address] * (ABNORMAL) Differential, auto (11/28/2024 10:25 AM CLINICAL UNIT COORDINATOR) Neutrophil abs 2.1 1.5 - 6.5 K/cumm Comment:Testing performed by : [facility] [address], Medical Office [facility] [address], [place] [address] Imm gran abs 0.0 0.0 - 0.1 K/cumm [facility] ([place]) Comment:Testing performed by : [facility] [address], Medical Office [facility] [address], [place] [address] Lymphocyte abs 0.6(L) 0.8 - 3.3 K/cumm [facility] ([place]) Comment:Testing performed by : [facility] [address], Medical Office [facility] [address], [place] [address] Monocyte abs 0.2 0.2 - 0.8 K/cumm [facility] ([place]) Comment:Testing performed by : [facility] [address], Medical Office [facility] [address], [place] [address] Eosinophil abs 0.1 0.0 - 0.5 K/cumm [facility] ([place]) Comment:Testing performed by : [facility] [address], Medical Office [facility] [address] [facility] [address], [place] [address] Basophil abs 0.0 0.0 - 0.1 K/cumm [facility] ([place]) Comment:Testing performed by : [facility] [address], Medical Office [facility] [address], [place] [address] Neutrophil pct 70.3 % [facility] ([place]) Comment: Interpretive Data Percent cell count reference ranges are not reported, since discordance with absolute values may lead to misinterpretation of CBC data. Current Interpretive Data was last revised on 2022. Testing performed by: [facility] [address], Medical Office [address], [place] [address] Imm gran pct 0.0 % [facility] ([place]) Comment: Interpretive Data Percent cell count reference ranges are not reported, since discordance with absolute values may lead to misinterpretation of CBC data. Current Interpretive Data was last revised on 2022. Testing performed by: [facility] [address], Medical Office [facility] [address], [place] [address] Lymphocyte pct 20.8 % [facility] ([place]) Comment: Interpretive Data Percent cell count reference ranges are not reported, since discordance with absolute values may lead to misinterpretation of CBC data. Current Interpretive Data was last revised on 2022. Testing performed by: [facility] [address], Medical Office [facility] [address], [place] [address] Monocyte pct 5.5 % [facility] ([place]) Comment: Interpretive Data Percent cell count reference ranges are not reported, since discordance with absolute values may lead to misinterpretation of CBC data. Current Interpretive Data was last revised on 2022. Testing performed by: [facility] [address], Medical Office [facility] [address], [place] [address] Eosinophil pct 3.1 % [facility] ([place]) Comment: Interpretive Data Percent cell count reference ranges are not reported, since discordance with absolute values may lead to misinterpretation of CBC data. Current Interpretive Data was last revised on 2022. Testing performed by: [facility] [address], Medical Office [facility] [address], [place] [address] Basophil pct 0.3 % [facility] ([place]) Comment: Interpretive Data Percent cell count reference ranges are not reported, since discordance with absolute values may lead to misinterpretation of CBC data. Current Interpretive Data was last revised on 2022. Testing performed by: [facility] [address], Medical Office [facility] [address], [place] [address] Blood 11/28/2024 10:2 5 AM CLINICAL UNIT COORDINATOR 11/28/2024 10:38 AM CLINICAL UNIT COORDINATOR us [place]y Jeronimo CREDIT PRODUCT ANALYST LAB BLOOD ORDERABLES Final Result [facility] ([place]) 1 [facility] Department [place] [address] * Iron profile w/ IBC (11/28/2024 10:25 AM CLINICAL UNIT COORDINATOR) Iron 117 50 - 150 mcg/dL Comment:Testing performed by : [facility] [place], [place], [address] TIBC 364 250 - 400 mcg/dL [facility] ([place]) Comment:Testing performed by : [place], [address] Transferrin saturation 32 20 - 50 % [facility] ([place]) Comment:Testing performed by : [place], [address] Blood 11/28/2024 10:2 5 AM CLINICAL UNIT COORDINATOR 11/28/2024 10:45 AM CLINICAL UNIT COORDINATOR us [place]y Jeronimo CREDIT PRODUCT ANALYST LAB BLOOD ORDERABLES Final Result Performing Organization Address City/[facility] Co de Phone Number [facility] ([place]) 1 [facility] Department [place] [address] * (ABNORMAL) CBC with auto differential (11/28/2024 10:25 AM CLINICAL UNIT COORDINATOR) WBC 2.9(L) 3.8 - 9.9 K/cumm Comment:Testing performed by : [facility] [address], Medical Office [facility] [address], [place] [address] Hgb 12.1(L) 13.0 - 17.5 g/dL [facility] ([place]) Comment:Testing performed by : [facility] [address], Medical Office [address], [place] [address] Hct 37.3(L) 38.9 - 50.3 % [facility] ([place]) Comment:Testing performed by : [facility] [address], Medical Office [address], [place] [address] Plt 153 150 - 400 K/cumm [facility] ([place]) Comment:Testing performed by : [facility] [address], Medical Office [address], [place] [address] MPV 9.9 9.1 - 12.3 fL [facility] ([place]) Comment:Testing performed by : [facility] [address], Medical Office [address], [place] [address] RBC 3.75(L) 4.30 - 5.80 M/cumm [facility] ([place]) Comment:Testing performed by : [facility] [address], Medical Office [address], [place] [address] MCV 99.5(H) 81.3 - 96.4 fL [facility] ([place]) Comment:Testing performed by : [facility] [address], Medical Office [address], [place] [address] MCH 32.3 27.1 - 33.3 pg [facility] ([place]) Comment:Testing performed by : [facility] [address], Medical Office [address], [place] [address] MCHC 32.4 32.3 - 35.7 g/dL [facility] ([place]) Comment:Testing performed by : [facility] [address], Medical Office [address], [place] [address] RDW CV 14.3 11.1 - 14.9 % [facility] ([place]) Comment:Testing performed by : [facility] [address], Medical Office [address], [place] [address] RDW SD 52.5(H) 35.7 - 48.1 fL [facility] ([place]) Comment:Testing performed by : [facility] [address], Medical Office [address], [place] [address] NRBC abs Not Measured 0.00 - 0.01 K/cumm [facility] ([place]) Comment:Testing performed by : [facility] [address], Medical Office [address], [place] [address] Blood 11/28/2024 10:2 5 AM CLINICAL UNIT COORDINATOR 11/28/2024 10:38 AM CLINICAL UNIT COORDINATOR Narrative [facility] ([place]) - 11/28/2024 10:42 AM CLINICAL UNIT COORDINATOR 09/29. 10/27. And 11/24 us [place]y Jeronimo CREDIT PRODUCT ANALYST LAB BLOOD ORDERABLES Final Result [facility] ([place]) 1 [facility] Department [place] [address] * Ferritin (11/28/2024 10:25 AM CLINICAL UNIT COORDINATOR) Ferritin 85 30 - 400 ng/mL Comment:Testing performed by : [place], [address] Blood 11/28/2024 10:2 5 AM CLINICAL UNIT COORDINATOR 11/28/2024 10:45 AM CLINICAL UNIT COORDINATOR us [place]y Jeronimo CREDIT PRODUCT ANALYST LAB BLOOD ORDERABLES Final Result Performing Organization Address City/[facility]/ZIP Co de Phone Number [facility] ([place]) [facility] Department [place] [address] * (ABNORMAL) Comprehensive metabolic panel (11/28/2024 10:25 AM CLINICAL UNIT COORDINATOR) Pathologist [facility] Sodium 136 135 - 145 mmol/L Comment:Testing performed by : [place], [address] Potassium, pl 4.4 3.3 - 4.9 mmol/L [facility] ([place]) Comment:Testing performed by : [place], [address] Chloride 100 97 - 110 mmol/L [facility] ([place]) Comment:Testing performed by : [place], [address] CO2 27 22 - 32 mmol/L [facility] ([place]) Comment:Testing performed by : [facility] [place], [place], [address] Anion gap 9 2 - 15 mmol/L [facility] ([place]) Comment:Testing performed by : [facility] [place], [place], [address] BUN 12 6 - 25 mg/dL [facility] ([place]) Comment:Testing performed by : [facility] [place], [place], [address] Creatinine 0.66(L) 0.80 - 1.30 mg/dL [facility] ([place]) Comment:Testing performed by : [facility] [place], [place], [address] Glucose 278(H) 70 - 199 mg/dL [facility] ([place]) Comment: Interpretive Data Fasting glucose >/= 126 mg/dl is diagnostic for diabetes. Fasting is defined as no caloric intake for at least 8 hours. Fasting glucose between 100 mg/dl to 125 mg/dl is diagnostic of prediabetes. In a patient with classic symptoms of hyperglycemia or hyperglycemic crisis, a random glucose >/= 200 mg/dl is diagnostic for diabetes. In the absence of unequivocal hyperglycemia, results should be confirmed by repeat testing. The classification and Diagnosis of Diabetes Diabetes Care 2021; 46: S19-S40. Current interpretive data was last revised 2022. Testing performed by: [facility] [place], [place], [address] Calcium 9.5 8.5 - 10.3 mg/dL [facility] ([place]) Comment:Testing performed by : [facility] [place], [place], [address] Bilirubin, total 0.2 0.1 - 1.2 mg/dL [facility] ([place]) Comment:Testing performed by : [facility] [place], [place], [address] Protein, pl 8.0 6.5 - 8.5 g/dL [facility] ([place]) Comment:Testing performed by : [facility] [place], [place], [address] Albumin 3.9 3.5 - 5.0 g/dL [facility] ([place]) Comment:Testing performed by : [facility] [place], [place], [address] Alk phos 158(H) 40 - 130 Units/L [facility] ([place]) Comment:Testing performed by : [facility] [place], [place], [address] ALT 21 7 - 55 Units/L [facility] ([place]) Comment:Testing performed by : [facility] [place], [place], [address] AST 33 10 - 50 Units/L [facility] ([place]) Comment:Testing performed by : [place], [address] Blood 11/28/2024 10:2 5 AM CLINICAL UNIT COORDINATOR 11/28/2024 10:45 AM CLINICAL UNIT COORDINATOR us Rosy Jeronimo NP LAB BLOOD ORDERABLES Final Result Performing Organization Address City/[facility]/ZIP Co de Phone Number [facility] ([place]) [facility] Department [place] [address] * (ABNORMAL) Hemoglobin A1c (08/04/2024 9:05 AM CDT) Hgb A1C 10.8(H) 4.0 - 5.6 % Comment:Testing performed by : [place], [address] Estimated Average Glucose 263 mg/dL [facility] ([place]) Comment: The ADA recommends reporting an estimated Average Glucose (eAG) with all Hemoglobin A1c results using the equation derived from a study of 507 normal and diabetic adults. Minority populations were underrepresented and children were not included. (Diabetes Care 31:[id number], 2008). The eAG is not equivalent to a fasting glucose. Testing performed by: [place], [address] Blood 08/04/2024 9:05 AM CDT 08/04/2024 9:24 AM CDT us Wilian Nation MD LAB BLOOD ORDERABLES Final Re sult Performing Organization Address City/[facility]/ZIP Co de Phone Number [facility] ([place]) [address] [facility] Department [place] [address] from Last 3 Months or Most Recently Relevant to Health Maintenance Insurance [employer] [facility] [employer] Address: [address] [address] [place] [address] [employer] [facility] [employer] Address: [address] [address] [place] [address] Care Teams [employer] Plater Relationship Specialty Start Date End Date Clifton Dailey DO PCP - General 05/02/09
--- OUTSIDE RECORDS SUMMARY | 2025-02-13 11:24 | XMS_ITS | Referral Summary ---
Author Organization [facility] Address [address] [place] [address] Care Team Providers Care [employer] Operator Name Role Phone Clifton Dailey DO Primary Care Provider [phone] Encounters Date Type Department Care Team Description 01/24/2025 2:30 PM LONG TERM ACUTE CARE REGISTERED NURSE Lab [address] [place] [phone] AVM (arteriovenous malformation); Iron deficiency anemia due to chronic blood loss 01/23/[address] [place] [phone] Natanael Parrish MD 12/26/2024 2:15 PM LONG TERM ACUTE CARE REGISTERED NURSE Lab [address] [place] [phone] AVM (arteriovenous malformation); Iron deficiency anemia due to chronic blood loss 11/28/2024 11:00 AM LONG TERM ACUTE CARE REGISTERED NURSE Clinical Support [address] [place] [phone] AVM (arteriovenous malformation); Iron deficiency anemia due to chronic blood loss 11/28/2024 10:15 AM LONG TERM ACUTE CARE REGISTERED NURSE Lab [address] [place] [phone] AVM (arteriovenous malformation); Iron deficiency anemia due to chronic blood loss 11/28/2024 10:45 AM LONG TERM ACUTE CARE REGISTERED NURSE Office Visit [facility] [address] [place] [address] Medical Office Bl [address] [phone] Natanael Parrish MD AVM (arteriovenous malformation); Iron deficiency anemia due to chronic blood loss from Last 3 Months Allergies No known active allergies Medications metFORMIN [...] Syringe (ml)SQas directedInject 1 syringe (100mcg) SQ [id number] e 11/16/20 14 Active omeprazole (PriLOSEC) 20 mg capsule 05/15/20 23 Active pioglitazone (ACTOS) 45 mg tablet 05/13/20 23 Active TRESIBA 200 unit/mL (3 mL) pen for injection INJECT 20 UNITS UNDER THE SKIN ONCE DAILY. HAVE FOOD SUCH YOGURT AND FRUIT ON HAND INCASE NEEDED 06/21/20 24 Active OneTouch Ultra Test strip as directed [...] Pure hypercholesterolemia 04/15/2014 Overview (03/06/2017): PURE HYPERCHOLESTEROLEM Immunizations Immunization Administration Dates Next Due Influenza, Quadrivalent, Hig h Dose, Preservative Free, Intrr 09/10/2023,08/26/2022 Influenza, Trivalent, High D ose, Split, Preservative Free, Intramuscular 08/16/2015,2013 Influenza, Trivalent, IM (MDV) 09/08/2014 Influenza, Unspecified 10/17/2015,2014,07/27/2015,05/02,02/07/2015,01/10/2015,12/13/2014 ,11/15/2014,10/18/2014,10/04/2014,07/01,04/26/2014 Pneumococcal Conjugate Pcv20 12/24/2022 Tdap 08/11/2022 ZOSTER LIVE 10/17/2015,09/07/2015 ZOSTER Recombinant 02/23/2023,12/24/2022 Social History Tobacco Use Types Packs/Day Years [...] on file Legal Sex Male 10:38 AM LONG TERM ACUTE CARE REGISTERED NURSE Gender Identity Not on file Sexual Orientation Not on file Last Filed Vital Signs Vital Sign Reading Time Taken Comments Blood Pressure 137/62 01/24/2025 2:41 PM LONG TERM ACUTE CARE REGISTERED NURSE Pulse 91 01/24/2025 2:41 PM LONG TERM ACUTE CARE REGISTERED NURSE Temperature 36.5 C (97.7 F) 01/24/2025 2:41 PM LONG TERM ACUTE CARE REGISTERED NURSE Respiratory Rate 20 01/24/2025 2:41 PM LONG TERM ACUTE CARE REGISTERED NURSE Oxygen Saturation 99% 01/24/2025 2:41 PM LONG TERM ACUTE CARE REGISTERED NURSE Inhaled Oxygen Concentration - - Weight 90.4 kg (199 lb 4.8 oz) 01/24/2025 2:41 P M LONG TERM ACUTE CARE REGISTERED NURSE Height 177.8 cm (5' 10 ) 11/28/2024 10:52 AM LONG TERM ACUTE CARE REGISTERED NURSE Body Mass Index 28.6 11/28/2024 10:52 AM LONG TERM ACUTE CARE REGISTERED NURSE Plan of Treatment Not on file Procedures Procedure Name Priority Date/Time Associated Diagnosis Comments EGFR Routine 01/24/2025 2:40 PM LONG TERM ACUTE CARE REGISTERED NURSE AVM (arteriovenous malformation) Iron deficiency anemia due to chronic blood loss DIFFERENTIAL AUTO Routine 01/24/2025 2:4 0 PM LONG TERM ACUTE CARE REGISTERED NURSE AVM (arteriovenous malformation) Iron deficiency anemia due to chronic blood loss COMPREHENSIVE METABOLIC PANEL Routine 01/24/2025 2:40 PM LONG TERM ACUTE CARE REGISTERED NURSE AVM (arteriovenous malformation) Iron deficiency anemia due to chronic blood loss FERRITIN Routine 01/24/2025 2:40 PM LONG TERM ACUTE CARE REGISTERED NURSE AVM (arteriovenous malformation) Iron deficiency anemia due to chronic blood loss IRON PROFILE W/ IBC Routine 01/24/2025 2 :40 PM LONG TERM ACUTE CARE REGISTERED NURSE AVM (arteriovenous malformation) Iron deficiency anemia due to chronic blood loss CBC WITH AUTO DIFFERENTIAL Routine 01/24/2025 2:40 PM LONG TERM ACUTE CARE REGISTERED NURSE AVM (arteriovenous malformation) Iron deficiency anemia due to chronic blood loss EGFR Routine 12/26/2024 2:15 PM LONG TERM ACUTE CARE REGISTERED NURSE AVM (arteriovenous malformation) Iron deficiency anemia due to chronic blood loss DIFFERENTIAL AUTO Routine 12/26/2024 2:1 5 PM LONG TERM ACUTE CARE REGISTERED NURSE AVM (arteriovenous malformation) Iron deficiency anemia due to chronic blood loss CBC WITH AUTO DIFFERENTIAL Routine 12/26/2024 2:15 PM LONG TERM ACUTE CARE REGISTERED NURSE AVM (arteriovenous malformation) Iron deficiency anemia due to chronic blood loss COMPREHENSIVE METABOLIC PANEL Routine 12/26/2024 2:15 PM LONG TERM ACUTE CARE REGISTERED NURSE AVM (arteriovenous malformation) Iron deficiency anemia due to chronic blood loss FERRITIN Routine 12/26/2024 2:15 PM LONG TERM ACUTE CARE REGISTERED NURSE AVM (arteriovenous malformation) Iron deficiency anemia due to chronic blood loss IRON PROFILE W/ IBC Routine 12/26/2024 2 :15 PM LONG TERM ACUTE CARE REGISTERED NURSE AVM (arteriovenous malformation) Iron deficiency anemia due to chronic blood loss EGFR Routine 11/28/2024 10:25 AM LONG TERM ACUTE CARE REGISTERED NURSE AVM (arteriovenous malformation) Iron deficiency anemia due to chronic blood loss DIFFERENTIAL AUTO Routine 11/28/2024 10: 25 AM LONG TERM ACUTE CARE REGISTERED NURSE AVM (arteriovenous malformation) Iron deficiency anemia due to chronic blood loss CBC WITH AUTO DIFFERENTIAL Routine 11/28/2024 10:25 AM LONG TERM ACUTE CARE REGISTERED NURSE AVM (arteriovenous malformation) Iron deficiency anemia due to chronic blood loss COMPREHENSIVE METABOLIC PANEL Routine 11/28/2024 10:25 AM LONG TERM ACUTE CARE REGISTERED NURSE AVM (arteriovenous malformation) Iron deficiency anemia due to chronic blood loss IRON PROFILE W/ IBC Routine 11/28/2024 1 0:25 AM LONG TERM ACUTE CARE REGISTERED NURSE AVM (arteriovenous malformation) Iron deficiency anemia due to chronic blood loss FERRITIN Routine 11/28/2024 10:25 AM LONG TERM ACUTE CARE REGISTERED NURSE AVM (arteriovenous malformation) Iron deficiency anemia due to chronic blood loss HEMOGLOBIN A1C Routine 08/04/2024 9:05 AM CDT Hyperglycemia due to diabetes mellitus (HCC) from Last 3 Months or Most Recently Relevant to Health Maintenance Results * eGFR (01/24/2025 2:40 PM LONG TERM ACUTE CARE REGISTERED NURSE) eGFR 87 >=60 mL/min/1. 73 m2 Comment: [...] was last reviewed 2021. Testing performed by: [facility], [facility], [place], [address] Blood 01/24/2025 2:40 PM LONG TERM ACUTE CARE REGISTERED NURSE 01/24/2025 2:55 PM LONG TERM ACUTE CARE REGISTERED NURSE us Natanael Parrish MD LAB BLOOD ORDERABLES Johana tran Result [facility] ([place]) [facility] Department [place] [address] * Differential, auto (01/24/2025 2:40 PM LONG TERM ACUTE CARE REGISTERED NURSE) Neutrophil abs 2.9 1.5 - 6.5 K/cumm Comment:Testing performed by : [facility] [address], Medical Office [address], [place] [address] Imm gran abs 0.0 0.0 - 0.1 K/cumm [facility] ([place]) Comment:Testing performed by : [facility] [address], Medical Office [address], [place] [address] Lymphocyte abs 0.9 0.8 - 3.3 K/cumm [facility] ([place]) Comment:Testing performed by : [facility] [address], Medical Office [facility] [address], [place] [address] Monocyte abs 0.2 0.2 - 0.8 K/cumm [facility] ([place]) Comment:Testing performed by : [facility] [address], Medical Office [facility] [address], [place] [address] Eosinophil abs 0.1 0.0 - 0.5 K/cumm [facility] ([place]) Comment:Testing performed by : [facility] [address], Medical Office [facility] [address], [place] [address] Basophil abs 0.0 0.0 - 0.1 K/cumm [facility] ([place]) Comment:Testing performed by : [facility] [address], Medical Office [facility] [address], [place] [address] Neutrophil pct 71.1 % [facility] ([place]) Comment: Interpretive Data Percent cell count reference ranges are not reported, since discordance with absolute values may lead to misinterpretation of CBC data. Current Interpretive Data was last revised on 2022. Testing performed by: [facility] [address], Medical Office [facility] [address], [place] [address] Imm gran pct 0.0 % [facility] ([place]) Comment: Interpretive Data Percent cell count reference ranges are not reported, since discordance with absolute values may lead to misinterpretation of CBC data. Current Interpretive Data was last revised on 2022. Testing performed by: [facility] [address], Medical Office Bld[address], [place] [address] Lymphocyte pct 21.2 % [facility] ([place]) Comment: Interpretive Data Percent cell count reference ranges are not reported, since discordance with absolute values may lead to misinterpretation of CBC data. Current Interpretive Data was last revised on 2022. Testing performed by: [facility] [address], Medical Office [facility] [address], [place] [address] Monocyte pct 5.8 % [facility] ([place]) Comment: Interpretive Data Percent cell count reference ranges are not reported, since discordance with absolute values may lead to misinterpretation of CBC data. Current Interpretive Data was last revised on 2022. Testing performed by: [facility] [address], Medical Office [facility] [address], [place] [address] Eosinophil pct 1.7 % [facility] ([place]) Comment: Interpretive Data Percent cell count reference ranges are not reported, since discordance with absolute values may lead to misinterpretation of CBC data. Current Interpretive Data was last revised on 2022. Testing performed by: [facility] [address], Medical Office [facility] [address], [place] [address] Basophil pct 0.2 % [facility] ([place]) Comment: Interpretive Data Percent cell count reference ranges are not reported, since discordance with absolute values may lead to misinterpretation of CBC data. Current Interpretive Data was last revised on 2022. Testing performed by: [facility] [address], Medical Office [facility] [address], [place] [address] Blood 01/24/2025 2:40 PM LONG TERM ACUTE CARE REGISTERED NURSE 01/24/2025 2:41 PM LONG TERM ACUTE CARE REGISTERED NURSE us Natanael Parrish MD LAB BLOOD ORDERABLES Johana l Result [facility] ([place]) [facility] Department [place] [address] * (ABNORMAL) Iron profile w/ IBC (01/24/2025 2:40 PM LONG TERM ACUTE CARE REGISTERED NURSE) Iron 57 50 - 150 mcg/dL Comment:Testing performed by : [facility], [facility], [place], [address] TIBC 388 250 - 400 mcg/dL [facility] ([place]) Comment:Testing performed by : [facility], [facility], [place], [address] Transferrin saturation 15(L) 20 - 50 % [facility] ([place]) Comment:Testing performed by : [facility], [facility], [place], [address] Blood 01/24/2025 2:40 PM LONG TERM ACUTE CARE REGISTERED NURSE 01/24/2025 2:55 PM LONG TERM ACUTE CARE REGISTERED NURSE us Natanael Parrish MD LAB BLOOD ORDERABLES Johana tran Result [facility] ([place]) [facility] Department [place] [address] * (ABNORMAL) CBC with auto differential (01/24/2025 2:40 PM LONG TERM ACUTE CARE REGISTERED NURSE) WBC 4.1 3.8 - 9.9 K/cumm Comment:Testing performed by : [facility] [address], Medical Office [facility] [address], [place] [address] Hgb 12.3(L) 13.0 - 17.5 g/dL [facility] ([place]) Comment:Testing performed by : [facility] [address], Medical Office [facility] [address], [place] [address] Hct 36.9(L) 38.9 - 50.3 % [facility] ([place]) Comment:Testing performed by : [facility] [address], Medical Office [facility] [address], [place] [address] Plt 171 150 - 400 K/cumm [facility] ([place]) Comment:Testing performed by : [facility] [address], Medical Office [facility] [address], [place] [address] MPV 9.7 9.1 - 12.3 fL [facility] ([place]) Comment:Testing performed by : [facility] [address], Medical Office [facility] [address], [place] [address] RBC 3.66(L) 4.30 - 5.80 M/cumm [facility] ([place]) Comment:Testing performed by : [facility] [address], Medical Office [facility] [address], [place] [address] MCV 100.8(H) 81.3 - 96.4 fL [facility] ([place]) Comment:Testing performed by : [facility] [address], Medical Office [facility] [address] [facility] [address], [place] [address] MCH 33.6(H) 27.1 - 33.3 pg [facility] ([place]) Comment:Testing performed by : [facility] [address], Medical Office [facility] [address] [facility] [address], [place] [address] MCHC 33.3 32.3 - 35.7 g/dL [facility] ([place]) Comment:Testing performed by : [facility] [address], Medical Office [facility] [address] [facility] [address], [place] [address] RDW CV 14.2 11.1 - 14.9 % [facility] ([place]) Comment:Testing performed by : [facility] [address], Medical Office [facility] [address] [facility] [address], [place] [address] RDW SD 53.1(H) 35.7 - 48.1 fL [facility] ([place]) Comment:Testing performed by : [facility] [address], Medical Office [facility] [address] [facility] [address], [place] [address] NRBC abs Not Measured 0.00 - 0.01 K/cumm [facility] ([place]) Comment:Testing performed by : [facility] [address], Medical Office [facility] [address], [place] [address] Blood 01/24/2025 2:40 PM LONG TERM ACUTE CARE REGISTERED NURSE 01/24/2025 2:41 PM LONG TERM ACUTE CARE REGISTERED NURSE us Natanael Parrish MD LAB BLOOD ORDERABLES Johana tran Result [facility] ([place]) 1 [facility] Department [place] [address] * Ferritin (01/24/2025 2:40 PM LONG TERM ACUTE CARE REGISTERED NURSE) Ferritin 86 30 - 400 ng/mL Comment:Testing performed by : [facility], [facility], [place], [address] Blood 01/24/2025 2:40 PM LONG TERM ACUTE CARE REGISTERED NURSE 01/24/2025 2:55 PM LONG TERM ACUTE CARE REGISTERED NURSE us Natanael Parrish MD LAB BLOOD ORDERABLES Johana tran Result [facility] ([place]) [facility] Department [place] [address] * (ABNORMAL) Comprehensive metabolic panel (01/24/2025 2:40 PM LONG TERM ACUTE CARE REGISTERED NURSE) Sodium 138 135 - 145 mmol/L Comment:Testing performed by : [facility], [place], [address] Potassium, pl 4.4 3.3 - 4.9 mmol/L [facility] ([place]) Comment:Testing performed by : [facility], [place], [address] Chloride 103 97 - 110 mmol/L [facility] ([place]) Comment:Testing performed by : [facility], [place], [address] CO2 26 22 - 32 mmol/L [facility] ([place]) Comment:Testing performed by : [facility], [place], [address] Anion gap 9 2 - 15 mmol/L [facility] ([place]) Comment:Testing performed by : [facility], [place], [address] BUN 19 6 - 25 mg/dL [facility] ([place]) Comment:Testing performed by : [facility], [place], [address] Creatinine 0.88 0.80 - 1.30 mg/dL [facility] ([place]) Comment:Testing performed by : [facility], [place], [address] Glucose 155 70 - 199 mg/dL [facility] ([place]) Comment: Interpretive Data Fasting glucose >/= 126 [...] was last revised 2022. Testing performed by: [place], [address] Calcium 9.5 8.5 - 10.3 mg/dL [facility] ([place]) Comment:Testing performed by : [facility], [place], [address] Bilirubin, total <0.2 0.1 - 1.2 mg/dL [facility] ([place]) Comment:Testing performed by : [facility], [place], [address] Protein, pl 7.8 6.5 - 8.5 g/dL [facility] ([place]) Comment:Testing performed by : [facility], [place], [address] Albumin 3.7 3.5 - 5.0 g/dL [facility] ([place]) Comment:Testing performed by : [facility], [place], [address] Alk phos 134(H) 40 - 130 Units/L [facility] ([place]) Comment:Testing performed by : [place], [address] ALT 26 7 - 55 Units/L [facility] ([place]) Comment:Testing performed by : [facility], [place], [address] AST 31 10 - 50 Units/L [facility] ([place]) Comment: Slightly Hemolyzed Specimen Testing performed by: [place], [address] Blood 01/24/2025 2:40 PM LONG TERM ACUTE CARE REGISTERED NURSE 01/24/2025 2:55 PM LONG TERM ACUTE CARE REGISTERED NURSE us Natanael Parrish MD LAB BLOOD ORDERABLES Johana tran Result [facility] ([place] [place] [address] * eGFR (12/26/2024 2:15 PM LONG TERM ACUTE CARE REGISTERED NURSE) eGFR 80 >=60 mL/min/1. 73 m2 Comment: [...] was last reviewed 2021. Testing performed by: [facility], [facility], [place], [address] Blood 12/26/2024 2:15 PM LONG TERM ACUTE CARE REGISTERED NURSE 12/26/2024 2:47 PM LONG TERM ACUTE CARE REGISTERED NURSE us Natanael Parrish MD LAB BLOOD ORDERABLES Johana marc Result [facility] ([place]) 1 [facility] Department [place] [address] * (ABNORMAL) Differential, auto (12/26/2024 2:15 PM LONG TERM ACUTE CARE REGISTERED NURSE) Neutrophil abs 2.1 1.5 - 6.5 K/cumm Comment:Testing performed by : [facility] [address], Medical Office [facility] [address] [facility] [address], [place] [address] Imm gran abs 0.0 0.0 - 0.1 K/cumm [facility] ([place]) Comment:Testing performed by : [facility] [address], Medical Office [facility] [address], [place] [address] Lymphocyte abs 0.7(L) 0.8 - 3.3 K/cumm [facility] ([place]) Comment:Testing performed by : [facility] [address], Medical Office [facility] [address], [place] [address] Monocyte abs 0.2 0.2 - 0.8 K/cumm [facility] ([place]) Comment:Testing performed by : [facility] [address], Medical Office [facility] [address], [place] [address] Eosinophil abs 0.1 0.0 - 0.5 K/cumm [facility] ([place]) Comment:Testing performed by : [facility] [address], Medical Office [facility] [address], [place] [address] Basophil abs 0.0 0.0 - 0.1 K/cumm [facility] ([place]) Comment:Testing performed by : [facility] [address], Medical Office [facility] [address], [place] [address] Neutrophil pct 69.3 % [facility] ([place]) Comment: Interpretive Data Percent cell count reference ranges are not reported, since discordance with absolute values may lead to misinterpretation of CBC data. Current Interpretive Data was last revised on 2022. Testing performed by: [facility] [address], Medical Office [facility] [address], [place] [address] Imm gran pct 0.0 % [facility] ([place]) Comment: Interpretive Data Percent cell count reference ranges are not reported, since discordance with absolute values may lead to misinterpretation of CBC data. Current Interpretive Data was last revised on 2022. Testing performed by: [facility] [address], Medical Office [facility] [address], [place] [address] Lymphocyte pct 22.0 % [facility] ([place]) Comment: Interpretive Data Percent cell count reference ranges are not reported, since discordance with absolute values may lead to misinterpretation of CBC data. Current Interpretive Data was last revised on 2022. Testing performed by: [facility] [address], Medical Office [facility] [address], [place] [address] Monocyte pct 5.8 % [facility] ([place]) Comment: Interpretive Data Percent cell count reference ranges are not reported, since discordance with absolute values may lead to misinterpretation of CBC data. Current Interpretive Data was last revised on 2022. Testing performed by: [facility] [address], Medical Office [address], [place] [address] Eosinophil pct 2.3 % [facility] ([place]) Comment: Interpretive Data Percent cell count reference ranges are not reported, since discordance with absolute values may lead to misinterpretation of CBC data. Current Interpretive Data was last revised on 2022. Testing performed by: [facility] [address], Medical Office [address], [place] [address] Basophil pct 0.6 % [facility] ([place]) Comment: Interpretive Data Percent cell count reference ranges are not reported, since discordance with absolute values may lead to misinterpretation of CBC data. Current Interpretive Data was last revised on 2022. Testing performed by: [facility] [address], Medical Office [facility] [address], [place] [address] Blood 12/26/2024 2:15 PM LONG TERM ACUTE CARE REGISTERED NURSE 12/26/2024 2:19 PM LONG TERM ACUTE CARE REGISTERED NURSE us Natanael Parrish MD LAB BLOOD ORDERABLES Johana l Result [facility] ([place]) 1 [facility] Department [place] [address] * Iron profile w/ IBC (12/26/2024 2:15 PM LONG TERM ACUTE CARE REGISTERED NURSE) Iron 104 50 - 150 mcg/dL Comment:Testing performed by : [place], [address] TIBC 395 250 - 400 mcg/dL [facility] ([place]) Comment:Testing performed by : [facility], [place], [address] Transferrin saturation 26 20 - 50 % [facility] ([place]) Comment:Testing performed by : [place], [address] Blood 12/26/2024 2:15 PM LONG TERM ACUTE CARE REGISTERED NURSE 12/26/2024 2:47 PM LONG TERM ACUTE CARE REGISTERED NURSE us Natanael Parrish MD LAB BLOOD ORDERABLES Johana l Result [facility] ([place]) 1 [facility] Department [place] [address] * (ABNORMAL) CBC with auto differential (12/26/2024 2:15 PM LONG TERM ACUTE CARE REGISTERED NURSE) WBC 3.1(L) 3.8 - 9.9 K/cumm Comment:Testing performed by : [facility] [address], Medical Office [address], [place] [address] Hgb 12.6(L) 13.0 - 17.5 g/dL [facility] ([place]) Comment:Testing performed by : [facility] [address], Medical Office [facility] [address], [place] [address] Hct 38.0(L) 38.9 - 50.3 % [facility] ([place]) Comment:Testing performed by : [facility] [address], Medical Office [facility] [address], [place] [address] Plt 169 150 - 400 K/cumm [facility] ([place]) Comment:Testing performed by : [facility] [address], Medical Office [facility] [address], [place] [address] MPV 9.8 9.1 - 12.3 fL [facility] ([place]) Comment:Testing performed by : [facility] [address], Medical Office [facility] [address], [place] [address] RBC 3.77(L) 4.30 - 5.80 M/cumm [facility] ([place]) Comment:Testing performed by : [facility] [address], Medical Office [facility] [address], [place] [address] MCV 100.8(H) 81.3 - 96.4 fL [facility] ([place]) Comment:Testing performed by : [facility] [address], Medical Office [address], [place] [address] MCH 33.4(H) 27.1 - 33.3 pg [facility] ([place]) Comment:Testing performed by : [facility] [address], Medical Office [address], [place] [address] MCHC 33.2 32.3 - 35.7 g/dL [facility] ([place]) Comment:Testing performed by : [facility] [address], Medical Office [facility] [address], [place] [address] RDW CV 14.3 11.1 - 14.9 % [facility] ([place]) Comment:Testing performed by : [facility] [address], Medical Office [facility] [address], [place] [address] RDW SD 53.9(H) 35.7 - 48.1 fL [facility] ([place]) Comment:Testing performed by : [facility] [address], Medical Office [facility] [address], [place] [address] NRBC abs Not Measured 0.00 - 0.01 K/cumm [facility] ([place]) Comment:Testing performed by : [facility] [address], Medical Office [facility] [address], [place] [address] Blood 12/26/2024 2:15 PM LONG TERM ACUTE CARE REGISTERED NURSE 12/26/2024 2:19 PM LONG TERM ACUTE CARE REGISTERED NURSE us Natanael Parrish MD LAB BLOOD ORDERABLES Johana l Result [facility] ([place]) 1 [facility] Department [place] [address] * Ferritin (12/26/2024 2:15 PM LONG TERM ACUTE CARE REGISTERED NURSE) Ferritin 91 30 - 400 ng/mL Comment:Testing performed by : [place], [address] Blood 12/26/2024 2:15 PM LONG TERM ACUTE CARE REGISTERED NURSE 12/26/2024 2:47 PM LONG TERM ACUTE CARE REGISTERED NURSE Natanael Parrish MD LAB BLOOD ORDERABLES Johana l Result [facility] ([place]) 1 [facility] Department [place] [employer] [place] [address] * (ABNORMAL) Comprehensive metabolic panel (12/26/2024 2:15 PM LONG TERM ACUTE CARE REGISTERED NURSE) Sodium 136 135 - 145 mmol/L Comment:Testing performed by : [facility], [place], [address] Potassium, pl 4.5 3.3 - 4.9 mmol/L [facility] ([place]) Comment:Testing performed by : [facility], [place], [address] Chloride 100 97 - 110 mmol/L [facility] ([place]) Comment:Testing performed by : [facility], [place], [address] CO2 30 22 - 32 mmol/L [facility] ([place]) Comment:Testing performed by : [facility], [place], [address] Anion gap 6 2 - 15 mmol/L [facility] ([place]) Comment:Testing performed by : [facility], [place], [address] BUN 12 6 - 25 mg/dL [facility] ([place]) Comment:Testing performed by : [facility], [place], [address] Creatinine 0.96 0.80 - 1.30 mg/dL [facility] ([place]) Comment:Testing performed by : [facility], [place], [address] Glucose 228(H) 70 - 199 mg/dL [facility] [...] was last revised 2022. Testing performed by: [facility], [place], [address] Calcium 9.7 8.5 - 10.3 mg/dL [facility] ([place]) Comment:Testing performed by : [facility], [place], [address] Bilirubin, total 0.3 0.1 - 1.2 mg/dL [facility] ([place]) Comment:Testing performed by : [facility], [place], [address] Protein, pl 8.3 6.5 - 8.5 g/dL [facility] ([place]) Comment:Testing performed by : [facility], [facility], [place], [address] Albumin 3.9 3.5 - 5.0 g/dL [facility] ([place]) Comment:Testing performed by : [facility], [facility], [place], [address] Alk phos 138(H) 40 - 130 Units/L [facility] ([place]) Comment:Testing performed by : [facility], [facility], [place], [address] ALT 22 7 - 55 Units/L [facility] ([place]) Comment:Testing performed by : [facility], [facility], [place], [address] AST 28 10 - 50 Units/L [facility] ([place]) Comment:Testing performed by : [facility], [facility], [place], [address] Blood 12/26/2024 2:15 PM LONG TERM ACUTE CARE REGISTERED NURSE 12/26/2024 2:47 PM LONG TERM ACUTE CARE REGISTERED NURSE us Natanael Parrish MD LAB BLOOD ORDERABLES Johana l Result [facility] ([place]) 1 [facility] Department [place] [address] * eGFR (11/28/2024 10:25 AM LONG TERM ACUTE CARE REGISTERED NURSE) eGFR >90 >=60 mL/min/1. 73 m2 Comment: [...] was last reviewed 2021. Testing performed by: [facility], [facility], [place], [address] Blood 11/28/2024 10:2 5 AM LONG TERM ACUTE CARE REGISTERED NURSE 11/28/2024 10:45 AM LONG TERM ACUTE CARE REGISTERED NURSE Rosy Jeronimo SHAKER OPERATOR LAB BLOOD ORDERABLES Final Result [facility] ([place]) 1 [facility] Department [place] [address] * (ABNORMAL) Differential, auto (11/28/2024 10:25 AM LONG TERM ACUTE CARE REGISTERED NURSE) Neutrophil abs 2.1 1.5 - 6.5 K/cumm Comment:Testing performed by : [facility] [address], Medical Office [facility] [address], [place] [address] Imm gran abs 0.0 0.0 - 0.1 K/cumm [facility] ([place]) Comment:Testing performed by : [facility] [address], Medical Office [facility] [address], [place] [address] Lymphocyte abs 0.6(L) 0.8 - 3.3 K/cumm [facility] ([place]) Comment:Testing performed by : [facility] [address], Medical Office [facility] [address], [place] [address] Monocyte abs 0.2 0.2 - 0.8 K/cumm [facility] ([place]) Comment:Testing performed by : [facility] [address], Medical Office [facility] [address], [place] [address] Eosinophil abs 0.1 0.0 - 0.5 K/cumm [facility] ([place]) Comment:Testing performed by : [facility] [address], Medical Office [facility] [address], [place] [address] Basophil abs 0.0 0.0 - 0.1 K/cumm [facility] ([place]) Comment:Testing performed by : [facility] [address], Medical Office [facility] [address], [place] [address] Neutrophil pct 70.3 % [facility] ([place]) Comment: Interpretive Data Percent cell count reference ranges are not reported, since discordance with absolute values may lead to misinterpretation of CBC data. Current Interpretive Data was last revised on 2022. Testing performed by: [facility] [address], Medical Office [facility] [address], [place] [address] Imm gran pct 0.0 % [facility] ([place]) Comment: Interpretive Data Percent cell count reference ranges are not reported, since discordance with absolute values may lead to misinterpretation of CBC data. Current Interpretive Data was last revised on 2022. Testing performed by: [facility] [address], Medical Office [facility] [address], [place] [address] Lymphocyte pct 20.8 % [facility] ([place]) Comment: Interpretive Data Percent cell count reference ranges are not reported, since discordance with absolute values may lead to misinterpretation of CBC data. Current Interpretive Data was last revised on 2022. Testing performed by: [facility] [address], Medical Office [facility] [address], [place] [address] Monocyte pct 5.5 % [facility] ([place]) Comment: Interpretive Data Percent cell count reference ranges are not reported, since discordance with absolute values may lead to misinterpretation of CBC data. Current Interpretive Data was last revised on 2022. Testing performed by: [facility] [address], Medical Office [facility] [address], [place] [address] Eosinophil pct 3.1 % [facility] ([place]) Comment: Interpretive Data Percent cell count reference ranges are not reported, since discordance with absolute values may lead to misinterpretation of CBC data. Current Interpretive Data was last revised on 2022. Testing performed by: [facility] [address], Medical Office [facility] [address], [place] [address] Basophil pct 0.3 % [facility] ([place]) Comment: Interpretive Data Percent cell count reference ranges are not reported, since discordance with absolute values may lead to misinterpretation of CBC data. Current Interpretive Data was last revised on 2022. Testing performed by: [facility] [address], Medical Office [facility] [address], [place] [address] Blood 11/28/2024 10:2 5 AM LONG TERM ACUTE CARE REGISTERED NURSE 11/28/2024 10:38 AM LONG TERM ACUTE CARE REGISTERED NURSE [place]y Jeronimo SHAKER OPERATOR LAB BLOOD ORDERABLES Final Result Performing Organization Address [facility] Co de Phone Number [facility] ([place]) 1 [facility] Department [place] [address] * Iron profile w/ IBC (11/28/2024 10:25 AM LONG TERM ACUTE CARE REGISTERED NURSE) Iron 117 50 - 150 mcg/dL Comment:Testing performed by : [place], [address] TIBC 364 250 - 400 mcg/dL [facility] ([place]) Comment:Testing performed by : [place], [address] Transferrin saturation 32 20 - 50 % [facility] ([place]) Comment:Testing performed by : [place], [address] Blood 11/28/2024 10:2 5 AM LONG TERM ACUTE CARE REGISTERED NURSE 11/28/2024 10:45 AM LONG TERM ACUTE CARE REGISTERED NURSE us [place]y Jeronimo SHAKER OPERATOR LAB BLOOD ORDERABLES Final Result Performing Organization Address [facility] Co de Phone Number [facility] ([place]) 1 [facility] Department [place] [address] * (ABNORMAL) CBC with auto differential (11/28/2024 10:25 AM LONG TERM ACUTE CARE REGISTERED NURSE) WBC 2.9(L) 3.8 - 9.9 K/cumm Comment:Testing performed by : [facility] [address], Medical Office [facility] [address], [place] [address] Hgb 12.1(L) 13.0 - 17.5 g/dL [facility] ([place]) Comment:Testing performed by : [facility] [address], Medical Office [facility] [address], [place] [address] Hct 37.3(L) 38.9 - 50.3 % [facility] ([place]) Comment:Testing performed by : [facility] [address], Medical Office [facility] [address], [place] [address] Plt 153 150 - 400 K/cumm [facility] ([place]) Comment:Testing performed by : [facility] [address], Medical Office [facility] [address], [place] [address] MPV 9.9 9.1 - 12.3 fL [facility] ([place]) Comment:Testing performed by : [facility] [address], Medical Office [facility] [address], [place] [address] RBC 3.75(L) 4.30 - 5.80 M/cumm [facility] ([place]) Comment:Testing performed by : [facility] [address], Medical Office [facility] [address], [place] [address] MCV 99.5(H) 81.3 - 96.4 fL [facility] ([place]) Comment:Testing performed by : [facility] [address], Medical Office [facility] [address], [place] [address] MCH 32.3 27.1 - 33.3 pg [facility] ([place]) Comment:Testing performed by : [facility] [address], Medical Office [facility] [address], [place] [address] MCHC 32.4 32.3 - 35.7 g/dL [facility] ([place]) Comment:Testing performed by : [facility] [address], Medical Office [facility] [address], [place] [address] RDW CV 14.3 11.1 - 14.9 % [facility] ([place]) Comment:Testing performed by : [facility] [address], Medical Office [facility] [address], [place] [address] RDW SD 52.5(H) 35.7 - 48.1 fL [facility] ([place]) Comment:Testing performed by : [facility] [address], Medical Office [address], [place] [address] NRBC abs Not Measured 0.00 - 0.01 K/cumm [facility] ([place]) Comment:Testing performed by : [facility] [place], [facility] , Medical Office [address]ld[address], [place] [address] Blood 11/28/2024 10:2 5 AM LONG TERM ACUTE CARE REGISTERED NURSE 11/28/2024 10:38 AM LONG TERM ACUTE CARE REGISTERED NURSE Narrative [facility] ([place]) - 11/28/2024 10:42 AM LONG TERM ACUTE CARE REGISTERED NURSE 09/29. 10/27. And 11/24 us [place]y Jeronimo SHAKER OPERATOR LAB BLOOD ORDERABLES Final Result [facility] ([place]) 1 [facility] Department [place] [address] * Ferritin (11/28/2024 10:25 AM LONG TERM ACUTE CARE REGISTERED NURSE) Ferritin 85 30 - 400 ng/mL Comment:Testing performed by : [facility], [place], [address] Blood 11/28/2024 10:2 5 AM LONG TERM ACUTE CARE REGISTERED NURSE 11/28/2024 10:45 AM LONG TERM ACUTE CARE REGISTERED NURSE us [place] Jeronimo SHAKER OPERATOR LAB BLOOD ORDERABLES Final Result [facility] ([place]) 1 [facility] Department [place] [address] * (ABNORMAL) Comprehensive metabolic panel (11/28/2024 10:25 AM LONG TERM ACUTE CARE REGISTERED NURSE) Sodium 136 135 - 145 mmol/L Comment:Testing performed by : [facility], [place], [address] Potassium, pl 4.4 3.3 - 4.9 mmol/L [facility] ([place]) Comment:Testing performed by : [facility], [place], [address] Chloride 100 97 - 110 mmol/L [facility] ([place]) Comment:Testing performed by : [facility], [place], [address] CO2 27 22 - 32 mmol/L [facility] ([place]) Comment:Testing performed by : [place], [address] Anion gap 9 2 - 15 mmol/L [facility] ([place]) Comment:Testing performed by : [facility], [place], [address] BUN 12 6 - 25 mg/dL [facility] ([place]) Comment:Testing performed by : [facility], [place], [address] Creatinine 0.66(L) 0.80 - 1.30 mg/dL [facility] ([place]) Comment:Testing performed by : [facility], [place], [address] Glucose 278(H) 70 - 199 mg/dL [facility] [...] was last revised 2022. Testing performed by: [place], [address] Calcium 9.5 8.5 - 10.3 mg/dL [facility] ([place]) Comment:Testing performed by : [place], [address] Bilirubin, total 0.2 0.1 - 1.2 mg/dL [facility] ([place]) Comment:Testing performed by : [place], [address] Protein, pl 8.0 6.5 - 8.5 g/dL [facility] ([place]) Comment:Testing performed by : [place], [address] Albumin 3.9 3.5 - 5.0 g/dL [facility] ([place]) Comment:Testing performed by : [facility], [place], [address] Alk phos 158(H) 40 - 130 Units/L [facility] ([place]) Comment:Testing performed by : [facility], [facility], [place], [address] ALT 21 7 - 55 Units/L [facility] ([place]) Comment:Testing performed by : [place], [address] AST 33 10 - 50 Units/L [facility] ([place]) Comment:Testing performed by : [facility], [place], [address] Blood 11/28/2024 10:2 5 AM LONG TERM ACUTE CARE REGISTERED NURSE 11/28/2024 10:45 AM LONG TERM ACUTE CARE REGISTERED NURSE us [place]y Jeronimo NP LAB BLOOD ORDERABLES Final Result [facility] ([place]) [address] [place] [address] Department [place] [address] * (ABNORMAL) Hemoglobin A1c (08/04/2024 9:05 AM CDT) Hgb A1C 10.8(H) 4.0 - 5.6 % Comment:Testing performed by : [facility], [facility], [place], [address] Estimated Average Glucose 263 mg/dL [facility] ([place]) Comment: The ADA recommends reporting an estimated Average Glucose (eAG) with all Hemoglobin A1c results using the equation derived from a study of 507 normal and diabetic adults. Minority populations were underrepresented and children were not included. (Diabetes Care 31:7709-2803, 2008). The eAG is not equivalent to a fasting glucose. Testing performed by: [place], [address] Blood 08/04/2024 9:05 AM CDT 08/04/2024 9:24 AM CDT us Wilian Nation MD LAB BLOOD ORDERABLES Final Re sult [facility] ([place]) 1 [facility] [place] [address] from Last 3 Months or Most Recently Relevant to Health Maintenance Insurance [employer] MED[employer] [facility] MED[facility] Address: [address] [address] [place] [address] Care Teams [employer] Relationship Specialty Start Date End Date Clifton Dailey DO PCP - General 05/02/09
--- OUTSIDE RECORDS SUMMARY | 2025-02-13 11:24 | XMS_ITS | Continuity of Care Document ---
Author Organization [facility] Address [address] [place] [address] Phone Care Team Providers Care Sales And Marketing Director Name Role Phone Lien Witt OD Unavailable Unavailable Allergies, Adverse Reactions, Alerts Substance Reaction Status Criticality No Known Allergies Active No Inform ation Medications Medication Instructions Dosage Effective Dates (start - stop) Status Comments gemfibrozil 600 mg tablet take 1 tablet by oral route 2 times every day 30 minutes before morning and evening meal 600 MG - Active warfarin 2 mg tablet take 4.5 milligram by oral route 4 times every week S,T,TH,S, 3mg M,W,F 9 MG - Active Systane (PF) 0.4 %-0.3 % eye drops in a dropperette instill 1 drop by ophthalmic route 4 times every day 1 drop - Active levothyroxine 25 mcg tablet take 1 tablet by oral route every day 25 MCG - Active lisinopril 10 mg-hydrochlorothiazid e 12.5 mg tablet take 1 tablet by oral route every day 1.00 tablet - Active fish oil-dha-epa 1,200 mg-144 mg-216 mg capsule - Active Centrum Men 8 mg iron-200 mcg-600 mcg tablet - Active gabapentin 300 mg capsule take 1 capsule by oral route every day 300 MG - Active glipizide 10 mg tablet take 1 tablet by oral route every day before a meal 10 MG - Active ezetimibe 10 mg tablet take 1 tablet by oral route every day 10 MG - Active pravastatin 10 mg tablet take 1 tablet by oral route every day 10 MG - Active metformin 1,000 mg tablet take 1 tablet by oral route 2 times every day with morning and evening meals 1000 MG - Active Procedures Procedure Date Scan Computerized; Retina Est Pt Complete Est Pt Exp Prob Focused Scan Computerized; Retina Est Pt Complete Postop F/u Visit [facility] 8 Postop F/u Visit [facility] Oct- 8 Postop F/u Visit [facility] Oct- 8 Postop F/u Visit [facility] 8 Postop F/u Visit [facility] Oct- 8 Postop F/u Visit [facility] Oct- 8 Postop F/u Visit [facility] Oct- 8 PKD Oct A-scan; W/io Lens Oct Ophth Serv: Med Exam; Interm E Oct-02-16 18 Est Pt Exp Prob Focused Optical Coherence Biometry Silver 18 Corneal Topography For Astigmatism Jossy sis Est Pt Complete No Charge Retinal OCT Fundus Photography New Pt Complete Advance Directives Directive Yes / No Effective Date File Name No Information Encounters Encounter Description Practice Location Reason(s) For Visit Diagnoses Date Provider Providers Copied on Encounter [facility], [address] [place] [address], [id number] , [place] tel:[phone] [facility] 8[facility] routine exam (chief complaint) Vitreous degeneration, bilateralOther secondary cataract, right eyeType 2 diabetes mellitus w/o complicationLong term use of oral antidiabetic drug 1 Eduar Emmanuel. [address] [place] [address], [id number], [place]. tel:[phone] Referring Provider: Lien Witt, [address], [address] . tel:[phone] Est Pt Exp Prob Focused [facility] [address] [place], [id number] , [place] tel: [phone] [facility] Encounter for other preprocedural examinationOther secondary cataract, bilateral 9 No Information Referring Provider: Lien Witt, [address], [place], [address] . tel:[phone] [email or web address], [address] [place], [place], [id number] , tel: [phone] [facility] Type 2 diabetes mellitus without complicationsLong term (current) use of oral hypoglycemic drugsVitreous degeneration, bilateralOther secondary cataract, bilateral 9 Eduar Emmanuel. [address] [place], [place], [id number], [place]. tel:[phone] Referring Provider: Lien Witt, [address] [place], [address] . tel:[phone] [email or web address], [address] [place], [place], [id number] , [place] tel: [phone] [facility]55 Secondary noninfectious iridocyclitis, right eye 8 Eduar Emmanuel. [address] [place], [place], [id number], [place]. tel:[phone] Referring Provider: Lien Witt, [address] [place], [address] . tel:[phone] [email or web address], [address] [place], [place], [id number] , [place] tel: [phone] [facility] 855 Secondary noninfectious iridocyclitis, right eyeVitreous degeneration, left eye Oct- 8 Eduar Emmanuel. [address] [place], [place], [id number], [place]. tel:[phone] Referring Provider: Lien Witt, [address] [place], [address] . tel:[phone] [facility], [address] [place], [place], [id number] , tel: [phone] [facility]55 Secondary noninfectious iridocyclitis, right eye Dec-1 0 8 Eduar Emmanuel. [address] [place], [place], [id number], . tel:[phone] Referring Provider: Lien Witt, [address] [place], [address] . tel:[phone] [facility], [address] [place], [place], [id number] , tel: [phone] [facility] 855 no complaints OD (chief complaint) Presence of intraocular lens Nov-2 0 8 Eduar Emmanuel. [address] [place], [place], [id number], . tel:[phone] Referring Provider: Lien Witt, [address] [place], [address] . tel:[phone] [facility], [address] [place], [place], [id number] , tel: [phone] [facility]55 Presence of intraocular lens Oct-2 8 Eduar Emmanuel. [address] [place], [place], [id number], . tel:[phone] Referring Provider: Lien Witt, [address] [place], [address] . tel:[phone] [facility], [address] [place], [place], [id number] , tel: [phone] [facility] Combined forms of age-related cataract, left eye Oct-1 8 8 Amachezach Medley. [address] [place], [place], [id number], [place]. tel:[phone] [facility], [address] [place], [place], [id number] , tel: [phone] [facility]55 TTT when he accidently rubs OD, happy with his visio OD (chief complaint) Presence of intraocular lens Oct-1 7-201 8 Eduar Emmanuel. [address] [place], [place], [id number], . tel:[phone] Referring Provider: Lien Witt, [address] [place], [address] . tel:[phone] [facility], [address], [id number] , tel:[phone] [facility]55 blurry vision OD (chief complaint) Presence of intraocular lens Oct-1 0-201 8 Eduar Emmanuel. [address], [place], [id number], . tel:[phone] Referring Provider: Lien Witt, [address], [address] . tel:[phone] [facility], [address], [place], [id number] , tel:[phone] [facility] No Information Oct-0 9-201 8 Amachezach Medley. [address], [place], [id number], . [phone] Referring Provider: Lien Witt, [address], [address] . tel:[phone] [facility], [address], [place], [id number] , tel:[phone] [facility] 5250 Combined forms of age-related cataract, bilateralType 2 diabetes mellitus without complicationsLong term (current) use of oral hypoglycemic drugs Oct-0 3-201 8 Amachezach Medley. [address] [place], [place], [id number], . tel:[phone] Referring Provider: Lien Witt, [address] [place], [address] . tel:[phone] Est Pt Exp Prob Focused [facility], [address], [place], [place], [id number] , [place] tel:[phone] [facility] 855 Encounter for other preprocedural examinationCombin ed forms of age-related cataract, bilateral Sep-2 - 8 No Information Referring Provider: Galindo Pruitt, [address], [place], [address] . tel:[phone] [email or web address], [address], [id number] , [place] tel: [phone] [facility] Age-related nuclear cataract, right eye Sep-2 8 Terell Medley. [address] [place], [place], [id number], [place]. tel:[phone] Referring Provider: Galindo Pruitt, [address] [place], [address] . tel:[phone] [email or web address], [address], [id number] , [place] tel:[phone] [facility] 855 Type 2 diabetes mellitus without complicationsLong term (current) use of oral hypoglycemic drugsCombined forms of age-related cataract, bilateral Peter-2 8 Eduar Emmanuel. [address] [place], [place], [id number], [place]. tel:[phone] Referring Provider: Lien Witt, [address] [place], [address] . tel:[phone] [email or web address], [address], [id number] , [place] tel:[phone] [facility] 855 Type 2 diabetes mellitus without complicationsLong term (current) use of oral antidiabetic drugsCombined forms of age-related cataract, bilateral Apr-0 7 Eduar Emmanuel. [address], [id number], [place]. tel:[phone] Referring Provider: Noe Siddiqi, [address] [place], [address]. tel:[phone] Family History Family Member Type Diagnosis Age At Onset No Information Payers Payer name Insurance type Covered republican ID Werner lindsay(s) AYLEEN Med Compl [place] [id number] Social History Type Description Quantity Date Captured Comments Alcohol Use Details 1 drink daily Caffeine Use Details 2-4 cups per day Tobacco Use Status No Information Smoking Status No Information Sex Male Vital Signs Date / Time: Height Weight BMI Pulse Rate Blood Pressure Temperature Respiratory Rate Body Surface Area Head Circumference Head Circ. Percentile Wt./Grupo. Percentile BMI percentile Pulse Ox Inhaled Ox 8:50 AM 70.00 in 90.718 kg (200.00 lbs) 28.7 0 kg/m eter (2) 93 /min 143/70 mm[Hg] Chief Complaint And Reason For Visit From encounter dated '03/28/2021 08:45'. routine exam (chief complaint) Reason For Referral Reason For Referral No Information Plan Of Treatment Date Type Action Status Future Order: Radiology Order OC T Retina ([id number]), Ordered on: Ordered Future Order: Radiology Order OC T Retina ([id number]), Ordered on: Ordered Future Order: Radiology Order OC T Retina ([id number]), Ordered on: Ordered History Of Present Illness Encounter Date Complaint History Of Prese nt Illness routine exam NIDDM X 5 yearsG lucose [id number] 6.9Pt states he feels his vision is not as sharp as it use to be after cat surgery, he feels it's gotten blurrier. Pt states he see's flashes of light when he moves his eyes and he's always had floaters. no complaints no complaints OD FBS and pain that ra diates out w/light sensitivity. FBS and pain that radiates out w/light sensitivity. OS TTT when he accident ly rubs OD, happy with his vision TTT when he accidently rubs OD, happy with his vision OD Aug- blurry vision blurry vision OS Aug- blurry vision blurry vision OD Functional Status Date Functional Assessmen t No Information Instructions Date Instruction Additional Infor zara Impression/Plan - Pt educ on findings. Retinas are flat and attached OU. Reviewed s/sx of RD and to call yoav if occurs. MAC OCT WNL OU. Pt c/o hazy vision. Vitrectomy discussed in the past. Related to Vitreous degeneration, bilateral Impression/Plan - No retinopathy on exam today. Patient educated on importance of BG control. Monitor annually. Related to Type 2 diabetes mellitus w/o complication Impression/Plan - Tr genesis. Open capsule OS. Related to Other secondary cataract, right eye Impression/Plan - se e other diabetic note Related to senior care use of oral antidiabetic drug Follow up - 1 year CE - No retinopathy on exam today. Patient educated on importance of BG control. Monitor annually. Related to Type 2 diabetes mellitus without complications - OS>OD. Patient c/o hazy vision. YAG laser discussed. Pt elects YAG laser OS. 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 Retinas are flat and attached OU. Reviewed s/sx of RD and to call yoav if occurs. MAC OCT WNL OU. Pt c/o hazy vision. Vitrectomy discussed. Can consider after YAG laser OS. Related to Vitreous degeneration, bilateral - Resolved, no pain. Taper PA 1% TID/BID/QD each for 1 week. Call if NI/worsens. Related to Secondary noninfectious iridocyclitis, right eye - Inflammation on ex am. Continue PA 1% q2hr while awake OD through today then QID OD while awake starting tomorrow x 1 week. Check in 1 week. Related to Secondary noninfectious iridocyclitis, right eye - Pt educ on finding s. Retinas flat and attached OU. Reviewed signs and symptoms of RD and to call yoav if occurs. Educated on vitrectomy. Will monitor. Related to Vitreous degeneration, left eye - Inflammation on ex am. Start PA 1% qhr while awake OD through today then q2hr OD while awake until next visit, this or Thursday. Related to Secondary noninfectious iridocyclitis, right eye - No retinopathy on exam today. Patient educated on importance of BG control. Monitor annually. Related to Type 2 diabetes mellitus without complications - see dm plan Related to senior care (current) use of oral hypoglycemic drugs - Discussed cataract diagnosis with the patient. Risks and benefits of surgical treatment were discussed and understood. Patient elects surgical treatment. Specialty lens options discussed and pt declines. 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 Related to Combined forms of age-related cataract, bilateral - No retinopathy on exam today. Patient educated on importance of BG control. Monitor annually. MAC OCT today WNL. Related to Type 2 diabetes mellitus without complications - Discussed cataract s with patient. Discussed treatment options. Surgical treatment is recommended. Surgical risks and benefits discussed. Patient elects surgical treatment. Recommend surgery OU, OD first. Patient is candidate/interested in multifocal, toric, standard, LenSx and ORA. Aim OD: plano. Aim OS: plano. Would like to speak with counselor before final decision on surgery is made. Related to Combined forms of age-related cataract, bilateral - Discussed cataract diagnosis with the patient. Discussed and reviewed treatment options for cataracts. Patient will consider surgical treatment. He will call if would like to schedule. Would recommend surgery OU, OD first. Aim OD: Amlin. Aim OS: Amlin. Patient is a candidate for [employer] Lenses. Options discussed with patient. MAC OCT WNL OU. Related to Combined forms of age-related cataract, bilateral - No retinopathy on exam today. Patient educated on importance of BG control. Monitor annually. Fundus photos today. Related to Type 2 diabetes mellitus without complications Assessments Type Assessment Date assessment Vitreous degeneration, bilateral impression Vitreous degeneration, bilateral assessment Other secondary cataract, right eye impression Other secondary cataract, right eye: H26.491 assessment Type 2 diabetes mellitus w/o com plication impression Type 2 diabetes mellitus w/o com plication: e11.9 assessment senior care use of oral antidiabet ic drug impression senior care use of oral antidiabet ic drug: Z79.84 Patient Care Teams Name Effective Dates (start - stop) Status Members No Information
--- OUTSIDE RECORDS SUMMARY | 2025-02-13 11:24 | XMS_ITS | Clinical Summary ---
Author Organization [facility] Care Team Providers Care Merchandise Executive Name Role Phone Unavailable Primary Care Provider Unavailabl e Allergies No known active allergies Medications No known medications Active Problems No known active problems Social History Tobacco Use Types Packs/Day Years Used Date Smoking Tobacco: Never Assessed Sex and Gender Information Value Date Recorded Sex Assigned at Not on file Legal Sex Male 8:11 PM CDT Gender Identity Not on file Sexual Orientation Not on file Plan of Treatment Health Maintenance Due Date Last Done Comments Hepatitis C Virus (HCV) Screening 1945 TdaP Immunization 1945 Pneumococcal Immunization (5 0+ years) (1 of 1 - PCV) 1995 Zoster Immunization (1 of 2) 1995 Respiratory Syncytial Virus (RSV) Immunization (Adult) (1 - 1-dose 75+ series) 2020 Influenza Immunization (#1) 2024 SARS-COV-2 Immunization ( - 2023- season) 2024 Colonoscopy High Risk Discontinued 04/24/2015 Colonoscopy Discontinued 04/24/2015 Colorectal Cancer Screening Discontinued Cologuard Discontinued Hepatitis B Immunization Aged Out No longer eligible based on patient's age to complete this topic Immunochemical Fecal Occult Blood Discontinued Meningococcal Immunization (ACWY) Aged Out No longer eligible based on patient's age to complete this topic Rotavirus Immunization Aged Out No lo nger eligible based on patient's age to complete this topic Procedures Procedure Name Priority Date/Time Associated Diagnosis Comments COLONOSCOPY Routine 04/24/2015 from Last 3 Months or Most Recently Relevant to Health Maintenance Results * COLONOSCOPY (04/24/2015) Clifton Dailey DO PROCEDURE/MINOR SURGICA L ORDERABLES Final Result from Last 3 Months or Most Recently Relevant to Health Maintenance
--- NOTE | 2025-02-13 12:26 | REHSTMBS ---
Assessment and note entered by NATE Trujillo Modified Barium Swallow Evaluation ICD-10 Condition Codes (ST) Dysphagia, unspecified R13.1 Subjective Information pt reports solids get backed up in his throat; he reports when he swallows with his head faced to the left or right its even worse Feeding Type Recommended Oral Food Consistency Regular, Level 7 Liquid Consistency Thin (0) ST Clinical Summary The above pt was seen for an OP Modified Barium swallow due to complaints of solids back up in his throat He also stated that he has more difficulty swallowing if he turns his head while eating. Pt has upper and lower dentures; vocal quality was clear. Pt was alert and able to describe his swallowing difficulty. He was seated for a lateral view and presented with 5ml thin liquids via a spoon, pudding consistency barium via a spoon, and a cracker coated with barium pudding via a spoon; he was also tested with uncontrolled trials of thin liquids via a cup and a straw. The oral stages were within normal limits. No leakage or pocketing was exhibited. During the pharyngeal stage, bony protrusions were exhibited at C3 and C4. With all trials, possibly due to the bony protrusions, it appeared the epiglottis could not fully invert which potentially caused the vallecular residual which occurred across all consistencies. The pt was able to clear the residual with an independent dry swallow. Trace (& shallow) laryngeal penetration occurred with all trials of thin liquids, but it was cleared from the laryngeal vestibule without aspiration. Impression: Mild dysphagia; bony protrusions noted at C3 & C4 slightly interfere with swallow ability. No aspiration occurred. Recommendation: Regular diet with regular liquids but the pt was instructed to chew food well; allow for a dry swallow between bites; alternate liquids and solids. Pt was given extensive description of his difficulty as well as the swallowing guidelines. Pt verbalized understanding .
== END 2025-02-13 10:00 | disposition home or self-care (01) ==
PROVIDERS: PCP Internal Medicine; Visit Provider Internal Medicine
DX: R13.14 Dysphagia, pharyngoesophageal phase (principal); T17.320A Food in larynx causing asphyxiation, initial encounter; W44.F3XA Food entering into or through a natural orifice, initial encounter
CPT/HCPCS: 92611

== ENCOUNTER 2025-03-27 08:19 | Outpatient (CLI) | payer MEDICARE, SELFPAY ==
--- OUTSIDE RECORDS SUMMARY | 2025-03-27 08:29 | XMS_ITS | Continuity of Care Document ---
Author Organization [facility] Address [address] [place] [address] Phone Care Team Providers Care Suit Attendant Name Role Phone No Information Unavailable Unavailable Medications Medication Instructions Dosage Effective Dates (start - stop) Status Comments Zyrtec 10 mg Tab Take one tablet by mouth daily. - Active Pravachol 40 mg Tab Take 1/2 tablet by mouth two times per day. - Active Protonix 40MG 1/2 tablet twice daily - Active Atacand HCT 16 mg-12.5 mg Tab Take one tablet by mouth two times per day. - Active Aspir-81 81 mg Tab Take one tablet by mouth daily. - Active [employer] Ultra System Kit Use as directed. - Active [employer] Ultra Test Strips check blood sugar twice daily - Active Advance Directives Directive Yes / No Effective Date File Name No Information Encounters Encounter Description Practice Location Reason(s) For Visit Diagnoses Date Provider Providers Copied on Encounter Medical [facility], [address], [place], [place], [id number], tel:[phone] No Information 0 No Information [facility], [address], [place], [place], [id number], tel:[phone] [facility] No Information 0 5 Syed Carroll. [address], [place], [address]. tel:[phone] Referring Provider: Glen Lynch [address], [place], [address]. tel:[phone] [facility], [address], [place], [place], [id number], [place] tel:[phone] [facility] No Information 4-200 4 Syed Carroll. [address], [address], [place], [address]. tel:[phone] [facility], [address], [place], [place], [id number], [place] tel:[phone] [facility] DM II, UNCONTROLLED 4 Pilo Ledbetter. [address], [place], [place], [id number], [place]. tel:[phone] [facility], [address], [place], [place], [id number], [place] tel:[phone] [facility] ED, NONORGANIC OR UNSPEC 2-200 4 Pilo Ledbetter. [address], [place], [place], [id number], [place]. tel:[phone] [facility], [address], [place], [place], [id number], [place] tel:[phone] [facility] HYPERLIPIDEMIA , MIXEDHTN, BENIGNED, NONORGANIC OR UNSPECHYPERGLY CEMIALARYNGITI S,ACUTE W/OBSTRUCTION Jan-2 3-200 4 Pilo Ledbetter. [address], [address], [place], [place], [id number], [place]. tel:[phone] [facility], [address], [place], [place], [address], [place] tel:[phone] [facility] HYPERLIPIDEMIA , MIXEDHTN, BENIGNED, NONORGANIC OR UNSPEC Jan- 5-200 4 Pilo Ledbetter. [address], [place], [place], [id number], [place]. tel:[phone] Family History Family Member Type Diagnosis Age At Onset No Information Payers Payer name Insurance type Covered republican ID Werner lindsay(s) No Information Social History Type Description Quantity Date Captured Comments Alcohol Use Details Unknown Caffeine Use Details Unknown 03 cups per day 0 Tobacco Use Status No Information Smoking Status No Information Non-Smoking Tobacco Use Details cigarettes: No Details Available cigarettes: 2.00 per day, Pack Year: 36 Sex Male Chief Complaint And Reason For Visit No Information Reason For Referral Reason For Referral No Information History Of Present Illness Encounter Date Complaint History Of Prese nt Illness No Information Functional Status Date Functional Assessmen t No Information Instructions Date Instruction Additional Infor mation No Information Assessments Type Assessment Date No Information Patient Care Teams Name Effective Dates (start - stop) Status Members No Information
--- OUTSIDE RECORDS SUMMARY | 2025-03-27 08:30 | XMS_ITS | Referral Summary ---
Author Organization 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 Name Role Phone Clifton Dailey DO Primary Care Provider [phone]- [phone] Encounters Date Type Department Care Team Description 03/21/2025 8:42 AM CDT - 03/21/2025 11:59 PM CDT Hospital Encounter [address] [address] AVM (arteriovenous malformation); Iron deficiency anemia due to chronic blood loss Discharge Disposition: Discharge to home or self care 03/21/2025 8:45 AM CDT Lab [facility] Outpatient Lab at [address] [address] Hypertension (Primary Dx) 02/20/2025 2:15 PM CDT Lab [facility] at [address] [place] [address] AVM (arteriovenous malformation); Iron deficiency anemia due to chronic blood loss 02/20/2025 2:45 PM CDT Office Visit [facility] [address] [place] [address] Medical Office [address] [place] [address] Rosy Jeronimo, GENERAL OPERATIONS AGENT AVM (arteriovenous malformation) (Primary Dx); Iron deficiency anemia due to chronic blood loss 01/24/2025 2:30 PM [facility] Lab [facility] [address] [facility] [address] [place] [address] AVM (arteriovenous malformation); Iron deficiency anemia due to chronic blood loss 01/23/2025 Telephone [facility] [address] [place] [address] Natanael Parrish MD from Last 3 Months Allergies No known [...] Syringe (ml)SQas directedInject 1 syringe (100mcg) SQ funkyv1111/16/2014Continu e 11/16/20 14 Active omeprazole (PriLOSEC) 20 [...] on file Legal Sex Male 10:38 AM [facility] Gender Identity Not on file Sexual Orientation Not on file Last Filed Vital Signs Vital Sign Reading Time Taken Comments Blood Pressure 145/59 02/20/2025 2:40 PM CDT Pulse 89 02/20/2025 2:40 PM CDT Temperature 36.3 C (97.3 F) 02/20/2025 2:40 PM CDT Respiratory Rate 20 02/20/2025 2:40 PM CDT Oxygen Saturation 94% 02/20/2025 2:40 PM CDT Inhaled Oxygen Concentration - - Weight 90.5 kg (199 lb 9.6 oz) 02/20/2025 2:40 P M CDT Height 177.8 cm (5' 10 ) 02/20/2025 2:40 PM CDT Body Mass Index 28.64 02/20/2025 2:40 PM CDT Plan of Treatment Not on file Procedures Procedure Name Priority Date/Time Associated Diagnosis Comments DIFFERENTIAL AUTO Routine 03/21/2025 8:4 2 AM CDT AVM (arteriovenous malformation) Iron deficiency anemia due to chronic blood loss CBC WITH AUTO DIFFERENTIAL Routine 03/21/2025 8:42 AM CDT AVM (arteriovenous malformation) Iron deficiency anemia due to chronic blood loss EGFR Routine 02/20/2025 2:20 PM CDT AVM (arteriovenous malformation) Iron deficiency anemia due to chronic blood loss DIFFERENTIAL AUTO Routine 02/20/2025 2:2 0 PM CDT AVM (arteriovenous malformation) Iron deficiency anemia due to chronic blood loss COMPREHENSIVE METABOLIC PANEL Routine 02/20/2025 2:20 PM CDT AVM (arteriovenous malformation) Iron deficiency anemia due to chronic blood loss FERRITIN Routine 02/20/2025 2:20 PM CDT AVM (arteriovenous malformation) Iron deficiency anemia due to chronic blood loss IRON PROFILE W/ IBC Routine 02/20/2025 2 :20 PM CDT AVM (arteriovenous malformation) Iron deficiency anemia due to chronic blood loss CBC WITH AUTO DIFFERENTIAL Routine 02/20/2025 2:20 PM CDT AVM (arteriovenous malformation) Iron deficiency anemia due to chronic blood loss EGFR Routine 01/24/2025 2:40 PM [facility] AVM (arteriovenous malformation) Iron deficiency anemia due to chronic blood loss DIFFERENTIAL AUTO Routine 01/24/2025 2:4 0 PM [facility] AVM (arteriovenous malformation) Iron deficiency anemia due to chronic blood loss COMPREHENSIVE METABOLIC PANEL Routine 01/24/2025 2:40 PM [facility] AVM (arteriovenous malformation) Iron deficiency anemia due to chronic blood loss FERRITIN Routine 01/24/2025 2:40 PM [facility] AVM (arteriovenous malformation) Iron deficiency anemia due to chronic blood loss IRON PROFILE W/ IBC Routine 01/24/2025 2 :40 PM [facility] AVM (arteriovenous malformation) Iron deficiency anemia due to chronic blood loss CBC WITH AUTO DIFFERENTIAL Routine 01/24/2025 2:40 PM [facility] AVM (arteriovenous malformation) Iron deficiency anemia due to chronic blood loss HEMOGLOBIN A1C Routine 08/04/2024 9:05 AM CDT Hyperglycemia due to diabetes mellitus (HCC) from Last 3 Months or Most Recently Relevant to Health Maintenance Results * Differential, auto (03/21/2025 8:42 AM CDT) Neutrophil abs 2.30 1.50 - 6.50 K/cumm Imm gran abs 0.01 0.00 - 0.10 K/cumm [facility] Lymphocyte abs 1.07 0.80 - 3.30 K/cumm [facility] Monocyte abs 0.28 0.20 - 0.80 K/cumm [facility] Eosinophil abs 0.15 0.00 - 0.50 K/cumm [facility] Basophil abs 0.02 0.00 - 0.10 K/cumm [facility] Neutrophil pct 60.1 % [facility] Comment: Interpretive Data Percent cell count reference ranges are not reported, since discordance with absolute values may lead to misinterpretation of CBC data. Current Interpretive Data was last revised on 2018. Imm gran pct 0.3 % [facility] Comment: Interpretive Data Percent cell count reference ranges are not reported, since discordance with absolute values may lead to misinterpretation of CBC data. Current Interpretive Data was last revised on 2018. Lymphocyte pct 27.9 % [facility] Comment: Interpretive Data Percent cell count reference ranges are not reported, since discordance with absolute values may lead to misinterpretation of CBC data. Current Interpretive Data was last revised on 2018. Monocyte pct 7.3 % [facility] Comment: Interpretive Data Percent cell count reference ranges are not reported, since discordance with absolute values may lead to misinterpretation of CBC data. Current Interpretive Data was last revised on 2018. Eosinophil pct 3.9 % [facility] Comment: Interpretive Data Percent cell count reference ranges are not reported, since discordance with absolute values may lead to misinterpretation of CBC data. Current Interpretive Data was last revised on 2018. Basophil pct 0.5 % [facility] Comment: Interpretive Data Percent cell count reference ranges are not reported, since discordance with absolute values may lead to misinterpretation of CBC data. Current Interpretive Data was last revised on 2018. Blood 03/21/2025 8:42 AM CDT 03/21/2025 7:29 PM CDT Dinora Mcdonald NP LAB BLOOD ORDERABLES Johana l Result [facility] [address] Department of Laboratories [place], [place] [id number] * (ABNORMAL) CBC with auto differential (03/21/2025 8:42 AM CDT) [facility] [address] WBC 3.83 3.80 - 9.90 K/cumm Hgb 12.0(L) 13.0 - 17.5 g/dL [facility] Hct 38.8(L) 38.9 - 50.3 % [facility] Plt 184 150 - 400 K/cumm [facility] MPV 10.0 9.1 - 12.3 fL [facility] RBC 3.56(L) 4.30 - 5.80 M/cumm [facility] MCV 109.0(H) 81.3 - 96.4 fL [facility] MCH 33.7(H) 27.1 - 33.3 pg [facility] MCHC 30.9(L) 32.3 - 35.7 g/dL [facility] RDW CV 15.7(H) 11.1 - 14.9 % [facility] RDW SD 63.7(H) 35.7 - 48.1 fL [facility] NRBC abs 0.00 0.00 - 0.01 K/cumm [facility] Blood 03/21/2025 8:42 AM CDT 03/21/2025 7:29 PM CDT Narrative [facility] - 03/21/2025 7:43 PM CDT Monthly CBC 03/20 and 2024 us Dinora Mcdonald NP LAB BLOOD ORDERABLES Johana l Result Performing Organization Address City/[facility]/ZIP Co de Phone Number [facility] [address] Department of Laboratories [place], [place] [phone] * eGFR (02/20/2025 2:20 PM CDT) [facility] [address] eGFR 89 >=60 mL/min/1. 73 m2 Comment: Interpretive Data [...] was last reviewed 2021. Testing performed by: [facility], [place], [address] Blood 02/20/2025 2:20 PM CDT 02/20/2025 3:19 PM CDT us Natanael Parrish MD LAB BLOOD ORDERABLES Johana tran Result [facility] ([place]) [address] [facility] Department [place] [address] * Differential, auto (02/20/2025 2:20 PM CDT) Neutrophil abs 2.5 1.5 - 6.5 K/cumm Comment:Testing performed by : [facility] [address], Medical Office [facility] [address], [place] [address] Imm gran abs 0.0 0.0 - 0.1 K/cumm [facility] ([place]) Comment:Testing performed by : [facility] [address], Medical Office [facility] [address], [place] [address] Lymphocyte abs 0.8 0.8 - 3.3 K/cumm [facility] ([place]) Comment:Testing performed by : [facility] [address], Medical Office [facility] [address], [place] [address] Monocyte abs 0.2 0.2 - 0.8 K/cumm [facility] ([place]) Comment:Testing performed by : [facility] [address], Medical Office [facility] [address], [place] [address] Eosinophil abs 0.1 0.0 - 0.5 K/cumm [facility] ([place]) Comment:Testing performed by : [facility] [address], Medical Office [facility] [address], [place] [address] Basophil abs 0.0 0.0 - 0.1 K/cumm [facility] ([place]) Comment:Testing performed by : [facility] [address], Medical Office [facility] [address], [place] [address] Neutrophil pct 69.9 % [facility] ([place]) Comment: Interpretive Data Percent cell count reference ranges are not reported, since discordance with absolute values may lead to misinterpretation of CBC data. Current Interpretive Data was last revised on 2022. Testing performed by: [facility] [address], Medical Office [facility] [address], [place] [address] Imm gran pct 0.3 % [facility] ([place]) Comment: Interpretive Data Percent cell count reference ranges are not reported, since discordance with absolute values may lead to misinterpretation of CBC data. Current Interpretive Data was last revised on 2022. Testing performed by: [facility] [address], Medical Office [facility] [address], [place] [address] Lymphocyte pct 20.9 % [facility] ([place]) Comment: Interpretive Data Percent cell count reference ranges are not reported, since discordance with absolute values may lead to misinterpretation of CBC data. Current Interpretive Data was last revised on 2022. Testing performed by: [facility] [address], Medical Office [facility] B [facility] [address], [place] [address] Monocyte pct 6.4 % [facility] ([place]) Comment: Interpretive Data Percent cell count reference ranges are not reported, since discordance with absolute values may lead to misinterpretation of CBC data. Current Interpretive Data was last revised on 2022. Testing performed by: [facility] [address], Medical Office [facility] [address], [place] [address] Eosinophil pct 1.9 % [facility] ([place]) Comment: Interpretive Data Percent cell count reference ranges are not reported, since discordance with absolute values may lead to misinterpretation of CBC data. Current Interpretive Data was last revised on 2022. Testing performed by: [facility] [address], Medical Office [facility] [address], [place] [address] Basophil pct 0.6 % [facility] ([place]) Comment: Interpretive Data Percent cell count reference ranges are not reported, since discordance with absolute values may lead to misinterpretation of CBC data. Current Interpretive Data was last revised on 2022. Testing performed by: [facility] [address], Medical Office [facility] [address], [place] [address] Blood 02/20/2025 2:20 PM CDT 02/20/2025 2:23 PM CDT us Natanael Parrish MD LAB BLOOD ORDERABLES Johana l Result Performing Organization Address [facility]/ZIP Co de Phone Number [facility] ([place]) [address] [facility] Department [place] [address] * (ABNORMAL) Iron profile w/ IBC (02/20/2025 2:20 PM CDT) Iron 69 50 - 150 mcg/dL Comment:Testing performed by : [facility], [place], [address] TIBC 386 250 - 400 mcg/dL [facility] ([place]) Comment:Testing performed by : [place], [address] Transferrin saturation 18(L) 20 - 50 % [facility] ([place]) Comment:Testing performed by : [place], [address] Blood 02/20/2025 2:20 PM CDT 02/20/2025 3:19 PM CDT Natanael Parrish MD LAB BLOOD ORDERABLES Johana l Result [facility] ([place]) [address] [facility] Department [place] [address] * (ABNORMAL) CBC with auto differential (02/20/2025 2:20 PM CDT) WBC 3.6(L) 3.8 - 9.9 K/cumm Comment:Testing performed by : [facility] [address], Medical Office [address], [place] [address] Hgb 11.7(L) 13.0 - 17.5 g/dL [facility] ([place]) Comment:Testing performed by : [facility] [address], Medical Office [facility] [address], [place] [address] Hct 35.7(L) 38.9 - 50.3 % [facility] ([place]) Comment:Testing performed by : [facility] [address], Medical Office [facility] [address], [place] [address] Plt 168 150 - 400 K/cumm [facility] ([place]) Comment:Testing performed by : [facility] [address], Medical Office [facility] [address], [place] [address] MPV 9.4 9.1 - 12.3 fL [facility] ([place]) Comment:Testing performed by : [facility] [address], Medical Office [facility] [address], [place] [address] RBC 3.48(L) 4.30 - 5.80 M/cumm [facility] ([place]) Comment:Testing performed by : [facility] [address], Medical Office [facility] [address], [place] [address] MCV 102.6(H) 81.3 - 96.4 fL [facility] ([place]) Comment:Testing performed by : [facility] [address], Medical Office [facility] [address], [place] [address] MCH 33.6(H) 27.1 - 33.3 pg [facility] ([place]) Comment:Testing performed by : [facility] [address], Medical Office [facility] [address], [place] [address] MCHC 32.8 32.3 - 35.7 g/dL [facility] ([place]) Comment:Testing performed by : [facility] [address], Medical Office [facility] [address], [place] [address] RDW CV 14.4 11.1 - 14.9 % [facility] ([place]) Comment:Testing performed by : [facility] [address], Medical Office [address], [place] [address] RDW SD 54.3(H) 35.7 - 48.1 fL [facility] ([place]) Comment:Testing performed by : [facility] [address], Medical Office [facility] [address], [place] [address] NRBC abs Not Measured 0.00 - 0.01 K/cumm [facility] ([place]) Comment:Testing performed by : [facility] [address], Medical Office [facility] [address], [place] [address] Blood 02/20/2025 2:20 PM CDT 02/20/2025 2:23 PM CDT us Natanael Parrish MD LAB BLOOD ORDERABLES Johana l Result [facility] ([place]) [address] [facility] Department [place] [address] * Ferritin (02/20/2025 2:20 PM CDT) Ferritin 71 30 - 400 ng/mL Comment:Testing performed by : [facility], [place], [address] Blood 02/20/2025 2:20 PM CDT 02/20/2025 3:19 PM CDT us Natanael Parrish MD LAB BLOOD ORDERABLES Johana l Result [facility] ([place]) [address] [facility] Department [place] [address] * (ABNORMAL) Comprehensive metabolic panel (02/20/2025 2:20 PM CDT) Sodium 138 135 - 145 mmol/L Comment:Testing performed by : [facility], [place], [address] Potassium, pl 4.2 3.3 - 4.9 mmol/L [facility] ([place]) Comment:Testing performed by : [facility], [facility], [place], [address] Chloride 102 97 - 110 mmol/L [facility] ([place]) Comment:Testing performed by : [facility], [facility], [place], [address] CO2 28 22 - 32 mmol/L [facility] ([place]) Comment:Testing performed by : [facility], [facility], [place], [address] Anion gap 8 2 - 15 mmol/L [facility] ([place]) Comment:Testing performed by : [facility], [facility], [place], [address] BUN 15 6 - 25 mg/dL [facility] ([place]) Comment:Testing performed by : [facility], [place], [address] Creatinine 0.84 0.80 - 1.30 mg/dL [facility] ([place]) Comment:Testing performed by : [facility], [place], [address] Glucose 203(H) 70 - 199 mg/dL [facility] ([place]) [...] was last revised 2022. Testing performed by: [facility], [place], [address] Calcium 9.3 8.5 - 10.3 mg/dL [facility] ([place]) Comment:Testing performed by : [facility], [place], [address] Bilirubin, total 0.2 0.1 - 1.2 mg/dL [facility] ([place]) Comment:Testing performed by : [facility], [place], [address] Protein, pl 7.9 6.5 - 8.5 g/dL [facility] ([place]) Comment:Testing performed by : [facility], [facility], [place], [address] Albumin 3.7 3.5 - 5.0 g/dL [facility] ([place]) Comment:Testing performed by : [facility], [facility], [place], [address] Alk phos 113 40 - 130 Units/L [facility] ([place]) Comment:Testing performed by : [facility], [place], [address] ALT 25 7 - 55 Units/L [facility] ([place]) Comment:Testing performed by : [facility], [facility], [place], [address] AST 35 10 - 50 Units/L [facility] ([place]) Comment:Testing performed by : [facility], [place], [address] Blood 02/20/2025 2:20 PM CDT 02/20/2025 3:19 PM CDT us Natanael Parrish MD LAB BLOOD ORDERABLES Johana tran Result [facility] ([place]) 1 [facility] Department [place] [address] * eGFR (01/24/2025 2:40 PM [facility]) eGFR 87 >=60 mL/min/1. 73 m2 Comment: [...] was last reviewed 2021. Testing performed by: [facility], [address] [facility], [place], [address] Blood 01/24/2025 2:40 PM [facility] 01/24/2025 2:55 PM [facility] Natanael Parrish MD LAB BLOOD ORDERABLES Johana l Result [facility] ([place]) [address] [facility] Department [place] [address] * Differential, auto (01/24/2025 2:40 PM [facility]) Neutrophil abs 2.9 1.5 - 6.5 K/cumm Comment:Testing performed by : [facility] [address], Medical Office [facility] B [facility] [address], [place] [address] Imm gran abs 0.0 0.0 - 0.1 K/cumm [facility] ([place]) Comment:Testing performed by : [facility] [address], Medical Office [facility] [address], [place] [address] Lymphocyte abs 0.9 0.8 - 3.3 K/cumm [facility] ([place]) Comment:Testing performed by : [facility] [address], Medical Office [facility] B [facility] [address], [place] [address] Monocyte abs 0.2 0.2 - 0.8 K/cumm [facility] ([place]) Comment:Testing performed by : [facility] [address], Medical Office [facility] B [facility] [address], [place] [address] Eosinophil abs 0.1 0.0 - 0.5 K/cumm [facility] ([place]) Comment:Testing performed by : [facility] [address], Medical Office [facility] [address], [place] [address] Basophil abs 0.0 0.0 - 0.1 K/cumm [facility] ([place]) Comment:Testing performed by : [facility] [address], Medical Office [facility] [address], [place] [address] Neutrophil pct 71.1 % [facility] ([place]) Comment: Interpretive Data Percent cell count reference ranges are not reported, since discordance with absolute values may lead to misinterpretation of CBC data. Current Interpretive Data was last revised on 2022. Testing performed by: [facility] [address], Medical Office Bld[address], [place] [address] Imm gran pct 0.0 % [facility] ([place]) Comment: Interpretive Data Percent cell count reference ranges are not reported, since discordance with absolute values may lead to misinterpretation of CBC data. Current Interpretive Data was last revised on 2022. Testing performed by: [facility] [address], Medical Office B[address], [place] [address] Lymphocyte pct 21.2 % [facility] ([place]) Comment: Interpretive Data Percent cell count reference ranges are not reported, since discordance with absolute values may lead to misinterpretation of CBC data. Current Interpretive Data was last revised on 2022. Testing performed by: [facility] [address], Medical Office B[address], [place] [address] Monocyte pct 5.8 % [facility] ([place]) Comment: Interpretive Data Percent cell count reference ranges are not reported, since discordance with absolute values may lead to misinterpretation of CBC data. Current Interpretive Data was last revised on 2022. Testing performed by: [facility] [address], Medical Office B[address], [place] [address] Eosinophil pct 1.7 % [facility] ([place]) Comment: Interpretive Data Percent cell count reference ranges are not reported, since discordance with absolute values may lead to misinterpretation of CBC data. Current Interpretive Data was last revised on 2022. Testing performed by: [facility] [address], Medical Office B[address], [place] [address] Basophil pct 0.2 % [facility] ([place]) Comment: Interpretive Data Percent cell count reference ranges are not reported, since discordance with absolute values may lead to misinterpretation of CBC data. Current Interpretive Data was last revised on 2022. Testing performed by: [facility] [address], Medical Office B[address], [place] [address] Blood 01/24/2025 2:40 PM [facility] 01/24/2025 2:41 PM [facility] Natanael Parrish MD LAB BLOOD ORDERABLES Johana l Result Performing Organization Address [facility]/ZIP Co de Phone Number [facility] ([place]) [address] [facility] Department [place] [address] * (ABNORMAL) Iron profile w/ IBC (01/24/2025 2:40 PM [facility]) Iron 57 50 - 150 mcg/dL Comment:Testing performed by : [place], [address] TIBC 388 250 - 400 mcg/dL [facility] ([place]) Comment:Testing performed by : [place], [address] Transferrin saturation 15(L) 20 - 50 % [facility] ([place]) Comment:Testing performed by : [facility], [place], [address] Blood 01/24/2025 2:40 PM [facility] 01/24/2025 2:55 PM [facility] Natanael Parrish MD LAB BLOOD ORDERABLES Johana l Result [facility] ([place]) 1 [facility] Department [place] [address] * (ABNORMAL) CBC with auto differential (01/24/2025 2:40 PM [facility]) WBC 4.1 3.8 - 9.9 K/cumm Comment:Testing performed by : [facility] [address], Medical Office Bld[address], [place] [address] Hgb 12.3(L) 13.0 - 17.5 g/dL [facility] ([place]) Comment:Testing performed by : [facility] [address], Medical Office [address]ld[address], [place] [address] Hct 36.9(L) 38.9 - 50.3 % [facility] ([place]) Comment:Testing performed by : [facility] [address], Medical Office [facility] [address], [place] [address] Plt 171 150 - 400 K/cumm [facility] ([place]) Comment:Testing performed by : [facility] [address], Medical Office [facility] [address], [place] [address] MPV 9.7 9.1 - 12.3 fL [facility] ([place]) Comment:Testing performed by : [facility] [address], Medical Office [facility] B [facility] [address], [place] [address] RBC 3.66(L) 4.30 - 5.80 M/cumm [facility] ([place]) Comment:Testing performed by : [facility] [address], Medical Office [facility] B [facility] [address], [place] [address] MCV 100.8(H) 81.3 - 96.4 fL [facility] ([place]) Comment:Testing performed by : [facility] [address], Medical Office [facility] [address], [place] [address] MCH 33.6(H) 27.1 - 33.3 pg [facility] ([place]) Comment:Testing performed by : [facility] [address], Medical Office [facility] [address], [place] [address] MCHC 33.3 32.3 - 35.7 g/dL [facility] ([place]) Comment:Testing performed by : [facility] [address], Medical Office [facility] [address], [place] [address] RDW CV 14.2 11.1 - 14.9 % [facility] ([place]) Comment:Testing performed by : [facility] [address], Medical Office [facility] [address], [place] [address] RDW SD 53.1(H) 35.7 - 48.1 fL [facility] ([place]) Comment:Testing performed by : [facility] [address], Medical Office [facility] [address], [place] [address] NRBC abs Not Measured 0.00 - 0.01 K/cumm [facility] ([place]) Comment:Testing performed by : [facility] [address], Medical Office [address], [place] [address] Blood 01/24/2025 2:40 PM [facility] 01/24/2025 2:41 PM [facility] us Natanael Parrish MD LAB BLOOD ORDERABLES Johana l Result [facility] ([place]) 1 [facility] [place] [address] * Ferritin (01/24/2025 2:40 PM [facility]) Ferritin 86 30 - 400 ng/mL Comment:Testing performed by : [place], [address] Blood 01/24/2025 2:40 PM [facility] 01/24/2025 2:55 PM [facility] us Natanael Parrish MD LAB BLOOD ORDERABLES Johana l Result Performing Organization Address [facility]/ZIP Co de Phone Number [facility] ([place]) 1 [facility] [place] [address] * (ABNORMAL) Comprehensive metabolic panel (01/24/2025 2:40 PM [facility]) Sodium 138 135 - 145 mmol/L Comment:Testing performed by : [place], [address] Potassium, pl 4.4 3.3 - 4.9 mmol/L [facility] ([place]) Comment:Testing performed by : [place], [address] Chloride 103 97 - 110 mmol/L [facility] ([place]) Comment:Testing performed by : [place], [address] CO2 26 22 - 32 mmol/L [facility] ([place]) Comment:Testing performed by : [place], [address] Anion gap 9 2 - 15 mmol/L [facility] ([place]) Comment:Testing performed by : [place], [address] BUN 19 6 - 25 mg/dL [facility] ([place]) Comment:Testing performed by : [facility], [place], [address] Creatinine 0.88 0.80 - 1.30 mg/dL [facility] ([place]) Comment:Testing performed by : [place], [address] Glucose 155 70 - 199 mg/dL [facility] ([place]) [...] was last revised 2022. Testing performed by: [place], [address] Calcium 9.5 8.5 - 10.3 mg/dL [facility] ([place]) Comment:Testing performed by : [facility], [place], [address] Bilirubin, total <0.2 0.1 - 1.2 mg/dL [facility] ([place]) Comment:Testing performed by : [facility], [place], [address] Protein, pl 7.8 6.5 - 8.5 g/dL [facility] ([place]) Comment:Testing performed by : [facility], [place], [address] Albumin 3.7 3.5 - 5.0 g/dL [facility] ([place]) Comment:Testing performed by : [facility], [place], [address] Alk phos 134(H) 40 - 130 Units/L [facility] ([place]) Comment:Testing performed by : [facility], [place], [address] ALT 26 7 - 55 Units/L [facility] ([place]) Comment:Testing performed by : [facility], [place], [address] AST 31 10 - 50 Units/L [facility] ([place]) Comment: Slightly Hemolyzed Specimen Testing performed by: [facility], [place], [address] Blood 01/24/2025 2:40 PM [facility] 01/24/2025 2:55 PM [facility] us Natanael Parrish MD LAB BLOOD ORDERABLES Johana l Result Performing Organization Address City/[facility]/ZIP Co de Phone Number [facility] ([place]) 1 [facility] [place] [address] * (ABNORMAL) Hemoglobin A1c (08/04/2024 9:05 AM CDT) Hgb A1C 10.8(H) 4.0 - 5.6 % Comment:Testing performed by : [facility], [facility], [place], [address] Estimated Average Glucose 263 mg/dL [facility] ([place]) Comment: The ADA recommends reporting an estimated Average Glucose (eAG) with all Hemoglobin A1c results using the equation derived from a study of 507 normal and diabetic adults. Minority populations were underrepresented and children were not included. (Diabetes Care 31:3149-3696, 2008). The eAG is not equivalent to a fasting glucose. Testing performed by: [facility], [place], [address] Blood 08/04/2024 9:05 AM CDT 08/04/2024 9:24 AM CDT us Wilian Nation MD LAB BLOOD ORDERABLES Final Re sult Performing Organization Address City/[facility]/ZIP Co de Phone Number [facility] ([place]) 1 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
--- OUTSIDE RECORDS SUMMARY | 2025-03-27 08:30 | XMS_ITS | Clinical Summary ---
Author Organization [facility] Address [address] [place] [address] Care Team Providers Care Instructional Technology Instructor Name Role Phone Clifton Dailey DO Primary Care Provider [phone] Allergies No known active allergies Medications metFORMIN [...] Syringe (ml)SQas directedInject 1 syringe (100mcg) SQ vulujd1111/16/2014Continu e 11/16/20 14 Active omeprazole (PriLOSEC) 20 [...] Date Type Department Care Team Description 03/21/2025 8:45 AM CDT Lab [facility] Outpatient Lab at [address] [address] Hypertension (Primary Dx) 03/21/2025 8:42 AM CDT - 03/21/2025 11:59 PM [place] [address] AVM (arteriovenous malformation); Iron deficiency anemia due to chronic blood loss Discharge Disposition: Discharge to home or self care 02/20/2025 2:45 PM CDT Office Visit [facility] [address] [place] [address] Medical Office [address] [place] [address] Rosy Jeronimo, ALEAH AVM (arteriovenous malformation) (Primary Dx); Iron deficiency anemia due to chronic blood loss 02/20/2025 2:15 PM CDT Lab [address] [place] [address] AVM (arteriovenous malformation); Iron deficiency anemia due to chronic blood loss 01/24/2025 2:30 PM DELIVERY MGR Lab [address] [place] [address] AVM (arteriovenous malformation); Iron deficiency anemia due to chronic blood loss 01/23/[address] [place] [address] Natanael Parrish MD from Last 3 Months Immunizations Immunization Administration [...] of DVT, lupus anticoagulant, H. pylori; Comments[place] [facility] [place] - Hx Other Medical appy, back surg zurdo; Comments: [facility] [place] - Antiphospholipid syndrome Anemia Iron deficiency [...] on file Legal Sex Male 10:38 AM DELIVERY MGR Gender Identity Not on file Sexual Orientation [...] 02/20/2025 2:40 PM CDT Plan of Treatment Health Maintenance Due Date [...] 2024 11/04/2023, 08/12/2022, 06/09/2022, Additional history exists Hemoglobin A1C 02/01/2025 08/04/2024, 07/07/2024 Influenza Vaccine (Season Ended) 2025 09/10/2023, 08/26/2022, 10/17/2015, Additional history exists eGFR 02/20/2026 02/20/2025, 01/01, 12/26/2024, Additional history exists DTaP/Tdap/Td Vaccine (2 - [...] blood loss EGFR Routine 01/24/2025 2:40 PM DELIVERY MGR AVM (arteriovenous malformation) Iron deficiency anemia due to chronic blood loss DIFFERENTIAL AUTO Routine 01/24/2025 2:4 0 PM DELIVERY MGR AVM (arteriovenous malformation) Iron deficiency anemia due to chronic blood loss COMPREHENSIVE METABOLIC PANEL Routine 01/24/2025 2:40 PM DELIVERY MGR AVM (arteriovenous malformation) Iron deficiency anemia due to chronic blood loss FERRITIN Routine 01/24/2025 2:40 PM DELIVERY MGR AVM (arteriovenous malformation) Iron deficiency anemia due to chronic blood loss IRON PROFILE W/ IBC Routine 01/24/2025 2 :40 PM DELIVERY MGR AVM (arteriovenous malformation) Iron deficiency anemia due to chronic blood loss CBC WITH AUTO DIFFERENTIAL Routine 01/24/2025 2:40 PM DELIVERY MGR AVM (arteriovenous malformation) Iron deficiency anemia due to chronic blood loss HEMOGLOBIN A1C Routine 08/04/2024 9:05 AM CDT Hyperglycemia due to diabetes mellitus (HCC) from Last 3 Months or Most Recently Relevant to Health Maintenance Results * Differential, auto (03/21/2025 8:42 AM CDT) Neutrophil abs 2.30 1.50 - 6.50 K/cumm Imm gran abs 0.01 0.00 - 0.10 K/cumm [facility] Lymphocyte abs 1.07 0.80 - 3.30 K/cumm [facility] Monocyte abs 0.28 0.20 - 0.80 K/cumm [facility] Eosinophil abs 0.15 0.00 - 0.50 K/cumm [facility] Basophil abs 0.02 0.00 - 0.10 K/cumm [facility] Neutrophil pct 60.1 % [facility] Comment: Interpretive Data Percent cell count reference ranges are not reported, since discordance with absolute values may lead to misinterpretation of CBC data. Current Interpretive Data was last revised on 2018. Imm gran pct 0.3 % [facility] Comment: Interpretive Data Percent cell count reference ranges are not reported, since discordance with absolute values may lead to misinterpretation of CBC data. Current Interpretive Data was last revised on 2018. Lymphocyte pct 27.9 % [facility] Comment: Interpretive Data Percent cell count reference ranges are not reported, since discordance with absolute values may lead to misinterpretation of CBC data. Current Interpretive Data was last revised on 2018. Monocyte pct 7.3 % [facility] Comment: Interpretive Data Percent cell count reference ranges are not reported, since discordance with absolute values may lead to misinterpretation of CBC data. Current Interpretive Data was last revised on 2018. Eosinophil pct 3.9 % [facility] Comment: Interpretive Data Percent cell count reference ranges are not reported, since discordance with absolute values may lead to misinterpretation of CBC data. Current Interpretive Data was last revised on 2018. Basophil pct 0.5 % [facility] Comment: Interpretive Data Percent cell count reference ranges are not reported, since discordance with absolute values may lead to misinterpretation of CBC data. Current Interpretive Data was last revised on 2018. Blood 03/21/2025 8:42 AM CDT 03/21/2025 7:29 PM CDT Dinora Mcdonald NP LAB BLOOD ORDERABLES Johana tran Result [facility] [id number] [address] Department [place] [address] * (ABNORMAL) CBC with auto differential (03/21/2025 8:42 AM CDT) WBC 3.83 3.80 - 9.90 K/cumm Hgb 12.0(L) 13.0 - 17.5 g/dL [facility] Hct 38.8(L) 38.9 - 50.3 % [facility] Plt 184 150 - 400 K/cumm [facility] MPV 10.0 9.1 - 12.3 fL [facility] RBC 3.56(L) 4.30 - 5.80 M/cumm [facility] MCV 109.0(H) 81.3 - 96.4 fL [facility] MCH 33.7(H) 27.1 - 33.3 pg [facility] MCHC 30.9(L) 32.3 - 35.7 g/dL [facility] RDW CV 15.7(H) 11.1 - 14.9 % [facility] RDW SD 63.7(H) 35.7 - 48.1 fL [facility] NRBC abs 0.00 0.00 - 0.01 K/cumm [facility] Blood 03/21/2025 8:42 AM CDT 03/21/2025 7:29 PM CDT Narrative [facility] - 03/21/2025 7:43 PM CDT Monthly CBC 03/20 and 2024 Dinora Mcdonald DIRECTOR CENTER LAB BLOOD ORDERABLES Johana tran Result [facility] [id number] [address] Department of Laboratories [place], [place] [id number] * eGFR (02/20/2025 2:20 PM CDT) [facility] eGFR 89 >=60 mL/min/1. 73 m2 Comment: [...] was last reviewed 2021. Testing performed by: [facility], [facility], [place], [address] Blood 02/20/2025 2:20 PM CDT 02/20/2025 3:19 PM CDT us Natanael Parrish MD LAB BLOOD ORDERABLES Johana tran Result [facility] ([place] [address] [facility] Department [place] [address] * Differential, auto (02/20/2025 2:20 PM CDT) Neutrophil abs 2.5 1.5 - 6.5 K/cumm Comment:Testing performed by : [facility] [address], Medical Office [facility] [address], [place] [address] Imm gran abs 0.0 0.0 - 0.1 K/cumm [facility] ([place]) Comment:Testing performed by : [facility] [address], Medical Office [facility] [address], [place] [address] Lymphocyte abs 0.8 0.8 - 3.3 K/cumm [facility] ([place]) Comment:Testing performed by : [facility] [address], Medical Office [facility] [address], [place] [address] Monocyte abs 0.2 0.2 - 0.8 K/cumm [facility] ([place]) Comment:Testing performed by : [facility] [address], Medical Office [facility] [address], [place] [address] Eosinophil abs 0.1 0.0 - 0.5 K/cumm [facility] ([place]) Comment:Testing performed by : [facility] [address], Medical Office [facility] [address], [place] [address] Basophil abs 0.0 0.0 - 0.1 K/cumm [facility] ([place]) Comment:Testing performed by : [facility] [address], Medical Office [facility] [address], [place] [address] Neutrophil pct 69.9 % [facility] ([place]) Comment: Interpretive Data Percent cell count reference ranges are not reported, since discordance with absolute values may lead to misinterpretation of CBC data. Current Interpretive Data was last revised on 2022. Testing performed by: [facility] [address], Medical Office [facility] [address], [place] [address] Imm gran pct 0.3 % [facility] ([place]) Comment: Interpretive Data Percent cell count reference ranges are not reported, since discordance with absolute values may lead to misinterpretation of CBC data. Current Interpretive Data was last revised on 2022. Testing performed by: [facility] [address], Medical Office [facility] [address], [place] [address] Lymphocyte pct 20.9 % [facility] ([place] Comment: Interpretive Data Percent cell count reference ranges are not reported, since discordance with absolute values may lead to misinterpretation of CBC data. Current Interpretive Data was last revised on 2022. Testing performed by: [facility] [address], Medical Office [facility] [address], [place] [address] Monocyte pct 6.4 % [facility] ([place] Comment: Interpretive Data Percent cell count reference ranges are not reported, since discordance with absolute values may lead to misinterpretation of CBC data. Current Interpretive Data was last revised on 2022. Testing performed by: [facility] [address], Medical Office [facility] [address], [place] [address] Eosinophil pct 1.9 % [facility] ([place] Comment: Interpretive Data Percent cell count reference ranges are not reported, since discordance with absolute values may lead to misinterpretation of CBC data. Current Interpretive Data was last revised on 2022. Testing performed by: [facility] [address], Medical Office [facility] [address], [place] [address] Basophil pct 0.6 % [facility] ([place] Comment: Interpretive Data Percent cell count reference ranges are not reported, since discordance with absolute values may lead to misinterpretation of CBC data. Current Interpretive Data was last revised on 2022. Testing performed by: [facility] [address], Medical Office [facility] [address], [place] [address] Blood 02/20/2025 2:20 PM CDT 02/20/2025 2:23 PM CDT Natanael Parrish MD LAB BLOOD ORDERABLES Johana l Result [facility] [address] [facility] Department [place] [address] * (ABNORMAL) Iron profile w/ IBC (02/20/2025 2:20 PM CDT) Iron 69 50 - 150 mcg/dL Comment:Testing performed by : [place], [address] TIBC 386 250 - 400 mcg/dL [facility] ([place]) Comment:Testing performed by : [place], [address] Transferrin saturation 18(L) 20 - 50 % [facility] ([place]) Comment:Testing performed by : [place], [address] Blood 02/20/2025 2:20 PM CDT 02/20/2025 3:19 PM CDT us Natanael Parrish MD LAB BLOOD ORDERABLES Johana l Result [facility] ([place] [address] [facility] Department [place] [address] * (ABNORMAL) CBC with auto differential (02/20/2025 2:20 PM CDT) WBC 3.6(L) 3.8 - 9.9 K/cumm Comment:Testing performed by : [facility] [address], Medical Office [facility] [address], [place] [address] Hgb 11.7(L) 13.0 - 17.5 g/dL [facility] ([place]) Comment:Testing performed by : [facility] [address], Medical Office [facility] [address], [place] [address] Hct 35.7(L) 38.9 - 50.3 % [facility] ([place]) Comment:Testing performed by : [facility] [address], Medical Office [facility] [address], [place] [address] Plt 168 150 - 400 K/cumm [facility] ([place]) Comment:Testing performed by : [facility] [address], Medical Office [facility] B [facility] [address], [place] [address] MPV 9.4 9.1 - 12.3 fL [facility] ([place]) Comment:Testing performed by : [facility] [address], Medical Office [facility] B [facility] [address], [place] [address] RBC 3.48(L) 4.30 - 5.80 M/cumm [facility] ([place]) Comment:Testing performed by : [facility] [address], Medical Office [facility] B [facility] [address], [place] [address] MCV 102.6(H) 81.3 - 96.4 fL [facility] ([place]) Comment:Testing performed by : [facility] [address], Medical Office [facility] [address], [place] [address] MCH 33.6(H) 27.1 - 33.3 pg [facility] ([place]) Comment:Testing performed by : [facility] [address], Medical Office [facility] B [facility] [address], [place] [address] MCHC 32.8 32.3 - 35.7 g/dL [facility] ([place]) Comment:Testing performed by : [facility] [address], Medical Office [facility] [address], [place] [address] RDW CV 14.4 11.1 - 14.9 % [facility] ([place]) Comment:Testing performed by : [facility] [address], Medical Office [facility] [address], [place] [address] RDW SD 54.3(H) 35.7 - 48.1 fL [facility] ([place]) Comment:Testing performed by : [facility] [address], Medical Office [address], [place] [address] NRBC abs Not Measured 0.00 - 0.01 K/cumm [facility] ([place]) Comment:Testing performed by : [facility] [address], Medical Office [address], [place] [address] Blood 02/20/2025 2:20 PM CDT 02/20/2025 2:23 PM CDT us Natanael Parrish MD LAB BLOOD ORDERABLES Johana l Result [facility] ([place] [address] [facility] Department [place] [address] * Ferritin (02/20/2025 2:20 PM CDT) Pathologist [facility] Ferritin 71 30 - 400 ng/mL Comment:Testing performed by : [facility], [place], [address] Blood 02/20/2025 2:20 PM CDT 02/20/2025 3:19 PM CDT us Natanael Parrish MD LAB BLOOD ORDERABLES Johana l Result [facility] ([place] [address] [facility] Department [place] [address] * (ABNORMAL) Comprehensive metabolic panel (02/20/2025 2:20 PM CDT) Sodium 138 135 - 145 mmol/L Comment:Testing performed by : [place], [address] Potassium, pl 4.2 3.3 - 4.9 mmol/L [facility] ([place]) Comment:Testing performed by : [facility], [place], [address] Chloride 102 97 - 110 mmol/L [facility] ([place]) Comment:Testing performed by : [place], [address] CO2 28 22 - 32 mmol/L [facility] ([place]) Comment:Testing performed by : [facility], [place], [address] Anion gap 8 2 - 15 mmol/L [facility] ([place]) Comment:Testing performed by : [facility], [facility], [place], [address] BUN 15 6 - 25 mg/dL [facility] ([place]) Comment:Testing performed by : [facility], [place], [address] Creatinine 0.84 0.80 - 1.30 mg/dL [facility] ([place]) Comment:Testing performed by : [facility], [place], [address] Glucose 203(H) 70 - 199 mg/dL [facility] ([place]) Comment: Interpretive Data Fasting glucose >/= 126 [...] was last revised 2022. Testing performed by: [facility], [place], [address] Calcium 9.3 8.5 - 10.3 mg/dL [facility] ([place]) Comment:Testing performed by : [facility], [place], [address] Bilirubin, total 0.2 0.1 - 1.2 mg/dL [facility] ([place]) Comment:Testing performed by : [facility], [place], [address] Protein, pl 7.9 6.5 - 8.5 g/dL [facility] ([place]) Comment:Testing performed by : [facility], [place], [address] Albumin 3.7 3.5 - 5.0 g/dL [facility] ([place]) Comment:Testing performed by : [facility], [place], [address] Alk phos 113 40 - 130 Units/L [facility] ([place]) Comment:Testing performed by : [facility], [facility], [place], [address] ALT 25 7 - 55 Units/L [facility] ([place]) Comment:Testing performed by : [facility], [facility], [place], [address] AST 35 10 - 50 Units/L [facility] ([place]) Comment:Testing performed by : [facility], [facility], [place], [address] Blood 02/20/2025 2:20 PM CDT 02/20/2025 3:19 PM CDT us Natanael Parrish MD LAB BLOOD ORDERABLES Johana tran Result [facility] ([place] [address] [facility] Department [place] [address] * eGFR (01/24/2025 2:40 PM DELIVERY MGR) eGFR 87 >=60 mL/min/1. 73 m2 Comment: [...] of Race in Diagnosing Kidney Disease, JASN 202). The CKD-EPI equation should not be used for patients with unstable renal function and has not been validated in children and those over 70. Current interpretive data was last reviewed 2021. Testing performed by: [facility], [facility], [place], [address] Blood 01/24/2025 2:40 PM DELIVERY MGR 01/24/2025 2:55 PM DELIVERY MGR us Natanael Parrish MD LAB BLOOD ORDERABLES Johana tran Result [facility] ([place]) [address] [facility] Department [place] [address] * Differential, auto (01/24/2025 2:40 PM DELIVERY MGR) Neutrophil abs 2.9 1.5 - 6.5 K/cumm Comment:Testing performed by : [facility] [address], Medical Office [facility] [address], [place] [address] Imm gran abs 0.0 0.0 - 0.1 K/cumm [facility] ([place]) Comment:Testing performed by : [facility] [address], Medical Office [facility] [address], [place] [address] Lymphocyte abs 0.9 0.8 - 3.3 K/cumm [facility] ([place]) Comment:Testing performed by : [facility] [address], Medical Office [facility] [address], [place] [address] Monocyte abs 0.2 0.2 - 0.8 K/cumm [facility] ([place]) Comment:Testing performed by : [facility] [address], Medical Office [facility] [address], [place] [address] Eosinophil abs 0.1 0.0 - 0.5 K/cumm [facility] ([place]) Comment:Testing performed by : [facility] [address], Medical Office [facility] [address], [place] [address] Basophil abs 0.0 0.0 - 0.1 K/cumm [facility] ([place]) Comment:Testing performed by : [facility] [address], Medical Office [facility] [address], [place] [address] Neutrophil pct 71.1 % [facility] ([place]) Comment: Interpretive Data Percent cell count reference ranges are not reported, since discordance with absolute values may lead to misinterpretation of CBC data. Current Interpretive Data was last revised on 2022. Testing performed by: [facility] [address], Medical Office [facility] B [facility] [address], [place] [address] Imm gran pct 0.0 % [facility] ([place]) Comment: Interpretive Data Percent cell count reference ranges are not reported, since discordance with absolute values may lead to misinterpretation of CBC data. Current Interpretive Data was last revised on 2022. Testing performed by: [facility] [address], Medical Office [address]ld[address], [place] [address] Lymphocyte pct 21.2 % [facility] ([place]) Comment: Interpretive Data Percent cell count reference ranges are not reported, since discordance with absolute values may lead to misinterpretation of CBC data. Current Interpretive Data was last revised on 2022. Testing performed by: [facility] [address], Medical Office [address], [place] [address] Monocyte pct 5.8 % [facility] ([place]) Comment: Interpretive Data Percent cell count reference ranges are not reported, since discordance with absolute values may lead to misinterpretation of CBC data. Current Interpretive Data was last revised on 2022. Testing performed by: [facility] [address], Medical Office [address], [place] [address] Eosinophil pct 1.7 % [facility] ([place]) Comment: Interpretive Data Percent cell count reference ranges are not reported, since discordance with absolute values may lead to misinterpretation of CBC data. Current Interpretive Data was last revised on 2022. Testing performed by: [facility] [address], Medical Office [address]g [address], [place] [address] Basophil pct 0.2 % [facility] ([place]) Comment: Interpretive Data Percent cell count reference ranges are not reported, since discordance with absolute values may lead to misinterpretation of CBC data. Current Interpretive Data was last revised on 2022. Testing performed by: [facility] [address], Medical Office [address], [place] [address] Blood 01/24/2025 2:40 PM DELIVERY MGR 01/24/2025 2:41 PM DELIVERY MGR us Natanael Parrish MD LAB BLOOD ORDERABLES Johana tran Result [facility] ([place]) [address] [facility] Department [place] [address] * (ABNORMAL) Iron profile w/ IBC (01/24/2025 2:40 PM DELIVERY MGR) Pathologist [facility] Iron 57 50 - 150 mcg/dL Comment:Testing performed by : [facility], [facility], [place], [address] TIBC 388 250 - 400 mcg/dL [facility] ([place]) Comment:Testing performed by : [facility], [facility], [place], [address] Transferrin saturation 15(L) 20 - 50 % [facility] ([place]) Comment:Testing performed by : [facility], [place], [address] Blood 01/24/2025 2:40 PM DELIVERY MGR 01/24/2025 2:55 PM DELIVERY MGR Natanael Parrish MD LAB BLOOD ORDERABLES Johana tran Result [facility] ([place]) [address] [facility] Department [place] [address] * (ABNORMAL) CBC with auto differential (01/24/2025 2:40 PM DELIVERY MGR) Pathologist [facility] WBC 4.1 3.8 - 9.9 K/cumm Comment:Testing performed by : [facility] [address], Medical Office Bld[address], [place] [address] Hgb 12.3(L) 13.0 - 17.5 g/dL [facility] ([place]) Comment:Testing performed by : [facility] [address], Medical Office Bld[address], [place] [address] Hct 36.9(L) 38.9 - 50.3 % [facility] ([place]) Comment:Testing performed by : [facility] [address], Medical Office Bld[address], [place] [address] Plt 171 150 - 400 K/cumm [facility] ([place]) Comment:Testing performed by : [facility] [address], Medical Office Bld[address], [place] [address] MPV 9.7 9.1 - 12.3 fL [facility] ([place]) Comment:Testing performed by : [facility] [address], Medical Office [facility] B [facility] [address], [place] [address] RBC 3.66(L) 4.30 - 5.80 M/cumm [facility] ([place]) Comment:Testing performed by : [facility] [address], Medical Office [facility] [address], [place] [address] MCV 100.8(H) 81.3 - 96.4 fL [facility] ([place]) Comment:Testing performed by : [facility] [address], Medical Office [facility] [address], [place] [address] MCH 33.6(H) 27.1 - 33.3 pg [facility] ([place]) Comment:Testing performed by : [facility] [address], Medical Office [facility] [address], [place] [address] MCHC 33.3 32.3 - 35.7 g/dL [facility] ([place]) Comment:Testing performed by : [facility] [address], Medical Office [facility] [address], [place] [address] RDW CV 14.2 11.1 - 14.9 % [facility] ([place]) Comment:Testing performed by : [facility] [address], Medical Office [facility] B [facility] [address], [place] [address] RDW SD 53.1(H) 35.7 - 48.1 fL [facility] ([place]) Comment:Testing performed by : [facility] [address], Medical Office [facility] [address], [place] [address] NRBC abs Not Measured 0.00 - 0.01 K/cumm [facility] ([place]) Comment:Testing performed by : [facility] [address], Medical Office [facility] [address], [place] [address] Blood 01/24/2025 2:40 PM DELIVERY MGR 01/24/2025 2:41 PM DELIVERY MGR Natanael Parrish MD LAB BLOOD ORDERABLES Johana l Result [facility] ([place]) 1 [facility] Department [place] [address] * Ferritin (01/24/2025 2:40 PM DELIVERY MGR) Ferritin 86 30 - 400 ng/mL Comment:Testing performed by : [place], [address] Blood 01/24/2025 2:40 PM DELIVERY MGR 01/24/2025 2:55 PM DELIVERY MGR us Natanael Parrish MD LAB BLOOD ORDERABLES Johana l Result [facility] ([place]) 1 [facility] Department [place] [address] * (ABNORMAL) Comprehensive metabolic panel (01/24/2025 2:40 PM DELIVERY MGR) Pathologist [facility] Sodium 138 135 - 145 mmol/L Comment:Testing performed by : [place], [address] Potassium, pl 4.4 3.3 - 4.9 mmol/L [facility] ([place]) Comment:Testing performed by : [place], [address] Chloride 103 97 - 110 mmol/L [facility] ([place]) Comment:Testing performed by : [place], [address] CO2 26 22 - 32 mmol/L [facility] ([place]) Comment:Testing performed by : [place], [address] Anion gap 9 2 - 15 mmol/L [facility] ([place]) Comment:Testing performed by : [place], [address] BUN 19 6 - 25 mg/dL [facility] ([place]) Comment:Testing performed by : [place], [address] Creatinine 0.88 0.80 - 1.30 mg/dL [facility] ([place]) Comment:Testing performed by : [place], [address] Glucose 155 70 - 199 mg/dL [facility] [...] was last revised 2022. Testing performed by: [facility], [place], [address] Calcium 9.5 8.5 - 10.3 mg/dL [facility] ([place]) Comment:Testing performed by : [facility], [place], [address] Bilirubin, total <0.2 0.1 - 1.2 mg/dL [facility] ([place]) Comment:Testing performed by : [facility], [place], [address] Protein, pl 7.8 6.5 - 8.5 g/dL [facility] ([place]) Comment:Testing performed by : [facility], [place], [address] Albumin 3.7 3.5 - 5.0 g/dL [facility] ([place]) Comment:Testing performed by : [facility], [place], [address] Alk phos 134(H) 40 - 130 Units/L [facility] ([place]) Comment:Testing performed by : [facility], [place], [address] ALT 26 7 - 55 Units/L [facility] ([place]) Comment:Testing performed by : [facility], [place], [address] AST 31 10 - 50 Units/L [facility] ([place]) Comment: Slightly Hemolyzed Specimen Testing performed by: [facility], [place], [address] Blood 01/24/2025 2:40 PM DELIVERY MGR 01/24/2025 2:55 PM DELIVERY MGR us Natanael Parrish MD LAB BLOOD ORDERABLES Johana l Result [facility] ([place]) 1 [facility] Department [place] [address] * (ABNORMAL) Hemoglobin A1c (08/04/2024 9:05 AM CDT) Hgb A1C 10.8(H) 4.0 - 5.6 % Comment:Testing performed by : [place], [address] Estimated Average Glucose 263 mg/dL [facility] ([place]) Comment: The ADA recommends reporting an estimated Average Glucose (eAG) with all Hemoglobin A1c results using the equation derived from a study of 507 normal and diabetic adults. Minority populations were underrepresented and children were not included. (Diabetes Care 31:9094-4224, 2008). The eAG is not equivalent to a fasting glucose. Testing performed by: [place], [address] Blood 08/04/2024 9:05 AM CDT 08/04/2024 9:24 AM CDT us Wilian Nation MD LAB BLOOD ORDERABLES Final Re sult [facility] ([place]) 1 [facility] Department [place] [address] from Last 3 Months or Most Recently Relevant to Health Maintenance Insurance [facility] MEDICARE ADVANTAGE [facility] MEDICARE ADVANTAGE Care Teams Instructional Technology Instructor Relationship Specialty Start Date End Date Clifton Dailey DO PCP - General 05/02/09
--- OUTSIDE RECORDS SUMMARY | 2025-03-27 08:30 | XMS_ITS | Continuity of Care Document ---
Author Organization [facility] Address [address] [place] [address] Phone Care Team Providers Care Kettle Cleaner Name Role Phone Lien Witt OD Unavailable [...] Diagnoses Date Provider Providers Copied on Encounter [facility], [address] [place] [address], [id number] , [place] tel:[phone] [facility] 855 routine exam (chief complaint) Vitreous degeneration, bilateralOther secondary cataract, right eyeType 2 diabetes mellitus w/o complicationLong term use of oral antidiabetic drug 1 Eduar Emmanuel. [address] [place] [address], [id number], [place]. tel:[phone] Referring Provider: Lien Witt, [address], [place], [address] . tel:[phone] Est Pt Exp Prob Focused [facility], [address] [place], [id number] , [place] tel: [phone] [facility]55 Encounter for other preprocedural examinationOther secondary cataract, bilateral 9 No Information Referring Provider: Lien Witt, [address], [place], [address] . tel:[phone] [facility], [address] [place], [place], [id number] , tel: [phone] [facility]55 Type 2 diabetes mellitus without complicationsLong term (current) use of oral hypoglycemic drugsVitreous degeneration, bilateralOther secondary cataract, bilateral 9 Eduar Emmanuel. [address] [place], [place], [id number], [place]. tel:[phone] Referring Provider: Lien Witt, [address] [place], [address] . tel:[phone] [facility], [address] [place], [place], [address] , [place] tel: [phone] [facility] 855 Secondary noninfectious iridocyclitis, right eye 8 Eduar Emmanuel. [address] [place], [place], [address], [place]. tel:[phone] Referring Provider: Lien Wtit, [address] [place], [address] . tel:[phone] [employer], [address] [place], [place], [address] , [place] tel: [phone] [facility] 855 Secondary noninfectious iridocyclitis, right eyeVitreous degeneration, left eye Oct- 8 Eduar Emmanuel. [address] [place], [place], [address], [place]. tel:[phone] Referring Provider: Lien Witt, [address] [place], [address] . tel:[phone] [facility], [address] [place], [place], [address] , tel: [phone] [facility] 855 Secondary noninfectious iridocyclitis, right eye Dec-1 0 8 Eduar Emmanuel. [address] [place], [place], [address], . tel:[phone] Referring Provider: Lien Witt, [address] [place], [address] . tel:[phone] [employer], [address] [place], [place], [address] , tel: [phone] [facility] 855 no complaints OD (chief complaint) Presence of intraocular lens Nov-2 0 8 Eduar Emmanuel. [address] [place], [place], [address], . tel:[phone] Referring Provider: Lien Witt, [address] [place], [address] . tel:[phone] [facility], [address] [place], [place], [address] , tel: [phone] [facility] 855 Presence of intraocular lens Oct-2 8 Eduar Emmanuel. [address] [place], [place], [address], . tel:[phone] Referring Provider: Lien Witt, [address] [place], [address] . tel:[phone] [facility] [employer], [address] [place], [place], [address] , tel: [phone] [facility]250 Surgery Combined forms of age-related cataract, left eye Oct-1 8 8 Amachezach Medley. [address] [place], [place], [address], [place]. tel:[phone] [employer], [address] [place], [place], [address] , tel: [phone] [facility] 855 TTT when he accidently rubs OD, happy with his visio OD (chief complaint) Presence of intraocular lens Oct-1 7-201 8 Eduar Emmanuel. [address] [place], [place], [address], . tel:[phone] Referring Provider: Lien Witt, [address] [place], [address] . tel:[phone] [facility], [address], [address] , tel:[phone] [facility] 855 blurry vision OD (chief complaint) Presence of intraocular lens Oct-1 0-201 8 Eduar Emmanuel. [address], [address], . tel:[phone] Referring Provider: Lien Witt, [address], [place], [address] . tel:[phone] [facility] [employer], [address], [address] , tel:[phone] [facility] Surgery No Information Oct-0 9-201 8 Amachezach Medley. [address], [place], [address], . [phone] Referring Provider: Lien Witt, [address] [place], [address] . tel:[phone] [facility], [address], [address] , tel:[phone] [facility] 5250 Combined forms of age-related cataract, bilateralType 2 diabetes mellitus without complicationsLong term (current) use of oral hypoglycemic drugs Oct-0 3-201 8 Amachezach Medley. [address] [place], [place], [address], . tel:[phone] Referring Provider: Lien Witt, [address] [place], [address] . tel:[phone] Est Pt Exp Prob Focused [employer], [address], [place], [place], [id number] , [place] tel:[phone] [facility] 855 Encounter for other preprocedural examinationCombin ed forms of age-related cataract, bilateral Sep-2 - 8 No Information Referring Provider: Galindo Pruitt, [address], [place], [address] . tel:[phone] [facility], [address], [address] , [place] tel: [phone] [facility] 855 Age-related nuclear cataract, right eye Sep-2 8 Terell Medley. [address] [place], [place], [address], [place]. tel:[phone] Referring Provider: Galindo Pruitt, [address] [place], [address] . tel:[phone] [facility], [address], [address] , [place] tel:[phone] [facility] 855 Type 2 diabetes mellitus without complicationsLong term (current) use of oral hypoglycemic drugsCombined forms of age-related cataract, bilateral Peter-2 8 Eduar Emmanuel. [address] [place], [place], [address], [place]. tel:[phone] Referring Provider: Lien Witt, [address] [place], [address] . tel:[phone] [facility], [address], [address] , [place] tel:[phone] [facility] 855 Type 2 diabetes mellitus without complicationsLong term (current) use of oral antidiabetic drugsCombined forms of age-related cataract, bilateral Apr-0 7 Eduar Emmanuel. [address], [address], [place]. tel:[phone] Referring Provider: Noe Siddiqi, [address] [place], [address]. tel:[phone] Family History Family Member Type Diagnosis Age At Onset No Information Payers Payer name Insurance type Covered alliance party ID Werner lindsay(s) AYLEEN Med Compl [id number] CI [id number] Social History Type Description Quantity Date Captured [...] Future Order: Radiology Order OC T [facility] ([id number]), Ordered on: Ordered Future Order: Radiology Order OC T [facility] ([id number]), Ordered on: Ordered Future Order: Radiology Order OC T [facility] ([id number]), Ordered on: Ordered History Of Present Illness Encounter Date Complaint History Of Prese nt Illness routine exam NIDDM X 5 yearsG lucose zpnddpnL9H 6.9Pt states he feels his vision is [...] se e other diabetic note Related to assisted use of oral antidiabetic drug Follow up - 1 year CE - No retinopathy on exam today. Patient educated on importance of BG control. Monitor annually. Related to Type 2 diabetes mellitus without complications - OS>OD. Patient c/o hazy vision. YAG laser discussed. Pt elects YAG laser OS. 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 Educated on vitrectomy. Will monitor. [...] complications - see dm plan Related to assisted (current) use of oral hypoglycemic drugs - [...] recommend surgery OU, OD first. Aim OD: [place]. Aim OS: [place]. Patient is a candidate for [employer] [...] diabetes mellitus w/o com plication: e11.9 assessment assisted use of oral antidiabet ic drug impression assisted use of oral antidiabet ic drug: Z79.84 Patient Care Teams Name Effective Dates (start - stop) Status Members No Information
--- OUTSIDE RECORDS SUMMARY | 2025-03-27 08:30 | XMS_ITS | Clinical Summary ---
Author Organization [facility] Care Team Providers Care Partner Management Consultant Name Role Phone Unavailable Primary Care Provider [...]
--- OUTSIDE RECORDS SUMMARY | 2025-03-27 08:30 | XMS_ITS | Data Portability ---
Author Organization [facility] [place] Address [address] [place] [address] Care Team Providers Care Adobe Ball Mixer Name Role Phone ROSALINDA BURTON Primary Care Provider [phone] Assessment Encounter Date Assessment Date Assessment LastModified by Organization Details LastModified Time 08/09/2021 08/09/2021 75yo M with L knee arthritis. Clinical and radiographic findings discussed at length with the patient. All questions were answered to the patient s satisfaction. We discussed home conservative treatments including healthy diet, weight management, regular exercise, activity modification, ice, and rest. We also discussed conservative treatments including oral and topical NSAIDs, cortisone and visco injections, and medically-direc jaydon physical therapy. We also discussed the use/appropriate ness of advanced imaging, arthroscopic interventions, and arthroplasty. After thorough discussion, the patient has elected to proceed with nonsurgical management. He would like to try topical voltaren gel. He will return to the office if his pain does not improve or he would like to try injection. As part of this visit, notes and x rays obtained by another provider were reviewed. [email or web address] Not available 08/09/2021 14:56:01 Plan of Treatment Reminders Order Date Submit Date Provider Last Modified By Organization Details Last Modified Time Details Appointments None recorded. Lab None recorded. Referral None recorded. Procedures None recorded. Surgeries None recorded. Imaging None recorded. Medication Orders Voltaren Arthritis Pain 1 % topical gel 2020 021 [id number], [address] [place], [id number], 13:51:34 Patient TargetsNo targets recorded. Patient Instructions Encounter Date Encounter Id Patient Instructions Last Modified By Organization Details Last Modified Time 08/09/2021 [id number] learning about healthy weight jacquelin Not available 08/09/2021 15:11:21 Reason for Referral None Reported. Results Created Date Observation Date Name Description Value Unit Range Abnormal Flag Note LastModifiedBy Organization Detail LastModifiedTime Result Notes None recorded. Procedures Surgical History Date Name Laterality Status Provider Name and Address Organization Details Recorded Time 11/30/2010 Arthrd ant ntrbd min dsc lum completed Grace Dopps [place] [facility] 08/09/2021 14:17:40 Imaging Results None recorded. Procedure Notes None recorded. Medical Equipment None Reported. Allergies No known drug allergies Medications Name Sig Start Date Stop Date Status Note LastModified by Organization Details LastModified Time hydrocodone 5 mg-acetamino phen 325 mg tablet TAKE 1 TABLET BY MOUTH EVERY 6 HOURS NEEDED FOR PAIN FOR 3 DAYS active Not Available Not Available No t Available glipizide 10 mg tablet active Not Available Not Available No t Available pioglitazone 45 mg tablet active Not Available Not Available Not Available peg-electrol yte solution 420 gram oral solution USE DIRECTED DRINK BY MOUTH 240ML EVERY 10 MINUTES 1 DAY active Not Available Not Available No t Available omeprazole 40 mg capsule,andi yed release active Not Available Not Available Not Available levothyroxin e 25 mcg tablet active Not Available Not Available Not Available warfarin 3 mg tablet active Not Available Not Available No t Available pravastatin 10 mg tablet active Not Available Not Available Not Available gemfibrozil 600 mg tablet active Not Available Not Available Not Available metformin 1,000 mg tablet active Not Available Not Available Not Available Gentle Laxative (bisacodyl) 5 mg tablet,delay ed release TAKE 1 TABLET ONCE NEEDED FOR CONSTIPATIO N active Not Available Not Available No t Available gabapentin 300 mg capsule active Not Available Not Available Not Available omeprazole 20 mg capsule,andi yed release active Not Available Not Available Not Available pravastatin 20 mg tablet active Not Available Not Available Not Available lisinopril 10 mg-hydrochlo rothiazide 12.5 mg tablet active Not Available Not Available Not Available escitalopram 10 mg tablet active Not Available Not Available Not Available ezetimibe 10 mg tablet active Not Available Not Available No t Available Voltaren Arthritis Pain 1 % topical gel APPLY 2 GRAMS TO THE AFFECTED AREA(S) BY TOPICAL ROUTE 4 TIMES PER DAY 2020 active Not Available Not Available Not Avai lable Vitals Date Recorded Body height Body mass index (BMI) Body weight Provider Name and Address Organization Details Last Updated DateTime 08/09/2021 177.8 cm 29.6 kg/m2 62144.03 g Grace Anguiano [facility] 08/09/2021 14:14:46 Social History Question Answer Notes LastModified by Organizat ion Details LastModified Time Tobacco Smoking Status Former Smoker Grace Anguiano null [facility] 08/09/2021 14:17:08 Are You Currently Employed? No Information not available 08/09/2021 When Did You Quit Smoking? 16+yearssinc elastcigaret te Information not available 08/09/2021 Are You On Disability Or Applying For It? No Information not available 08/09/2021 Marital Status Informatio n not available 08/09/2021 Employment Status Retired Informa tion not available 08/09/2021 Unemployment Due To Current Problem No Information not available 08/09/2021 Illicit Drug Use? No Informa tion not available 08/09/2021 Sex: Unknown Functional Status None recorded. Mental Status None recorded. Family History Nothing Reported. Medical History Condition Response Renal Failure N Hyperthyroidism N Hypothyroidism N Depression N Drug Abuse N Anxiety Disorder N Blood Coagulation Disorder N Cancer N HIV/AIDS N Rheumatoid Arthritis N Alcohol Abuse N Schizophrenia N Fibromyalgia N Chronic Obstructive Pulmonary Disease N Peptic Ulcer Disease N Cardiac Arrhythmia N Hepatitis C N Diabetes Mellitus Y Myocardial Infarction N Coronary Artery DIsease N Valvular Heart Disease N Cerebrovascular Accident N Asthma N Hepatitis B N Bipolar Disorder N Sleep Apnea N Hypertension Y Osteoporosis N Heart Failure N Immunizations Vaccine Type Date Status Note Provider Nam e and Address Organization Details Recorded Time COVID-19, mRNA, LNP-S, PF, 100 mcg/0.5mL dose or 50 mcg/0.25mL dose 12/31/2020 completed COLETTE Kay 08/09/2021 14:16:09 Past Encounters Encounter ID Performer Location Encounter Start Date Encounter Closed Date Diagnosis/Indication Diagnosis SNOMED-CT Code Diagnosis ICD10 Code Diagnosis Note [id number] Jairo Estrella MD [facility] [address] [place] [address] 08/09/2021 12:39:58 08/14/2021 11:55:46 Increased body mass index 87631524 E66.3 Patient was educated about healthy weight Osteoarthr itis of left knee joint 4435372915 39320 M17.12 Health Concerns Section Related Observation LastModified by Organization Detai ls LastModified Time None Recorded Concern Status LastModified by Organization Details LastModified Time None Recorded Advance Directives Directive None Recorded Payers Encounter Date Sequence Insurance Name Policy Number Policy Bui Covered Member ID Bui Member ID Guarantor Name 08/09/2021 1 [facility] (MEDICARE REPLACEMENT/A DVANTAGE - HMO) [id number] Dawes L Coverdell [id number] Aayush Coverdell Notes Date Note Type Note Provider Name and Address Organization Details Recorded Time 08/09/2021 text/html Basic HPIReporte d bypatient.Chief complaint:pain Body part(s) affected:knee - left Duration:3 months Mechanism:other Recent symptomatic course:worsening Prior treatments:OTC medications - helped a little Prior testing:x-rays Previous surgery for this problem:no Emergency department or urgent care referral:Kayleen velasquez bypatient.Pain level:left knee - 04/08 Location:generalized Timing:related to activity; nighttime Quality:dull; aching; sharp Aggravating factors:walking; climbing stairs; standing; kneeling; squating; twisting/turning Alleviating factors:rest Associated symptoms:numbness;inst ability; swelling 75yo M who presents for 7 year history of L leg/knee pain. He reports diffuse pain that begins behind his knee but he also has pain medially and laterally. HE has pain with crossing his legs at the lateral aspect of his knee and pain after walking his dogs. The pain is not relieved by stopping walking, but gets better when he sits down. He has aching pain when he lays down that awakens him at night. He has a history of antiphospholipid syndrome with multiple blood clots in the L leg, that have intermittently caused him pain. He last had a clot several months ago. He is on skilled nursing warfarin for this problem. He also has a history of GI bleeds. He has never had an injection in the knee. He is not interested in surgery [place] [address],[facility] [[email or web address]] [address], [place], [address], [facility] 08/13/2021 13:51:40
--- OUTSIDE RECORDS SUMMARY | 2025-03-27 08:30 | XMS_ITS | Patient Health Record ---
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
[2025-03-27 11:27] LABS: Basophils Percent Auto 1.3 % (0.2-1.2); Eosinophils Absolute Auto 0.2 K/mm3 (0-0.3); Eosinophils Percent Auto 5.3 % (0-4.4); Hematocrit 37.9 % (42.0-52.0); Immature Granulocyte Absolute 0.01 K/mm3 (0.00-0.031); Immature Granulocyte Percent A 0.3 % (0-0.5); Lymphocytes Absolute Auto 0.71 K/mm3 (0.9-3.2); Lymphocytes Percent Auto 23.7 % (18.3-44.2); Mean Corpuscular HGB Conc 31.7 g/dl (32-36); Mean Corpuscular Hemoglobin 33.5 pg (26-34); Mean Corpuscular Volume 105.9 fl (80-100); Mean Platelet Volume 9.8 fl (7.4-10.4); Monocytes Absolute Auto 0.2 K/mm3 (0.1-0.6); Neutrophils Absolute Auto 1.9 K/mm3 (1.3-6.7); Neutrophils Percent Auto 62.4 % (45.5-73.1); Platelet Count Result 185 k/mm3 (150-375); Red Blood Count 3.58 M/mm3 (4.6-6.20); Red Cell Distribution Width 14.9 % (11.5-14.5)
[2025-03-27 11:47] LABS: Alanine Aminotransferase 31 U/L (6-50); Albumin Level 3.8 g/dL (3.5-5.1); Alkaline Phosphatase 128 U/L (38-126); Anion Gap 5 mmol/L (4-12); Aspartate Amino Transferase 49 U/L (17-59); Bilirubin,Total 0.3 mg/dL (0.2-1.3); Blood Urea Nitrogen 15 mg/dL (9-20); Calcium 9.4 mg/dL (8.4-10.2); Carbon Dioxide 31 mmol/L (22-30); Chloride 102 mmol/L (98-107); Estimated Glomerular Filt Rate > 60; Glucose 164 mg/dL (65-110); Sodium 138 mmol/L (137-145)
[2025-03-27 11:58] LABS: Hemoglobin A1C 6.9 % (<5.7)
[2025-03-27 12:05] LABS: Creatinine Urine 83.1 mg/dL
[2025-03-27 12:07] LABS: MALB Creatinine Ratio 17.2 mg/g (0-30); Microalbumin Urine Random 14.3 mg/L (0-16.7)
== END 2025-03-27 08:20 | disposition home or self-care (01) ==
LOC: ANHGOSHLAB 08:21
PROVIDERS: PCP Internal Medicine; Visit Provider Internal Medicine
DX: D64.9 Anemia, unspecified (principal); D68.61 Antiphospholipid syndrome; E11.42 Type 2 diabetes mellitus with diabetic polyneuropathy
CPT/HCPCS: 36415; 80053; 82043; 83036; 85025

== ENCOUNTER 2025-10-12 09:45 | Outpatient (CLI) | payer MEDICARE, SELFPAY ==
--- OUTSIDE RECORDS SUMMARY | 2025-10-12 10:24 | XMS_ITS | Clinical Summary ---
Author Organization [facility] Care Team Providers Care Clearance Representative Name Role Phone Unavailable Primary Care Provider [...] 1-dose 75+ series) 2020 Influenza Immunization (#1) 2025 SARS-COV-2 Immunization ( - season) 2025 Colonoscopy Discontinued 04/24/2015 Colorectal Cancer Screening Discontinued Cologuard Discontinued Hepatitis B Immunization Aged Out No longer eligible based on patient's age to complete this topic Human Papillomavirus (HPV) Immunization Aged Out No longer eligible b ased on patient's age to complete this topic [...]
--- OUTSIDE RECORDS SUMMARY | 2025-10-12 10:24 | XMS_ITS | Clinical Summary ---
Author Organization [facility] Address [address] [place] [address] Care Team Providers Care Grey Goods Examiner Name Role Phone Clifton Dailey DO Primary Care Provider [phone] Natanael Parrish MD Unavailable [phone] Allergies No known active allergies Medications metFORMIN [...] Syringe (ml)SQas directedInject 1 syringe (100mcg) SQ [id number] e 11/16/20 14 Active omeprazole (PriLOSEC) 20 [...] Encounters Date Type Department Care Team Description 09/19/2025 2:45 PM CDT Office Visit [facility] Medicine Physicians [facility] [address] Oncology [address] [place] [address] Medical Office [facility] [address] [place] [phone] Rosy Jeronimo, ALEAH AVM (arteriovenous malformation) (Primary Dx); Iron deficiency anemia due to chronic blood loss; Antiphospholipid syndrome 09/19/2025 2:15 PM CDT Lab [address] [place] [address] AVM (arteriovenous malformation); Antiphospholipid syndrome; AVM (arteriovenous malformation) of colon with hemorrhage; Iron deficiency anemia due to chronic blood loss 09/13/[address] [place] [address] Herminia Acosta, RN 09/13/2025 Telephone [facility] Medicine Physicians [facility] [address] Oncology [address] [place] [address] Medical Office [address] [place] [phone] Nargis Nick CLT from Last 3 Months Immunizations Immunization Administration Dates Next Due COVID-19 mRNA (Reflex) 0.3 m L (30 mcg) vaccine (12 years and up) 09/19/2025 Influenza, Quadrivalent, Hig h Dose, Preservative Free, Intrr 09/10/2023,08/26/2022 Influenza, Trivalent, High D ose, Split, Preservative Free, Intramuscular 09/12/2025,2013 Influenza, Trivalent, IM (MDV) 09/08/2014 Influenza, Unspecified 10/17/2015,2014,07/27/2015,05/02,02/07/2015,01/10/2015,12/13/2014 ,11/15/2014,10/18/2014,10/04/2014,07/01,04/26/2014 Pneumococcal Conjugate Pcv20 12/24/2022 Tdap 08/11/2022 ZOSTER LIVE 10/17/2015,09/07/2015 ZOSTER Recombinant 02/23/2023,12/24/2022 Surgical History Surgery Date Site/Laterality Comments APPENDECTOMY Appendectomy COLONOSCOPY Medical History Medical History Date Comments Hyperlipidemia Hyperlipidemia Diabetes mellitus Diabetes Hypertension Hypertension Diabetes mellitus diabetes melli tus Hx Other Medical htn, dm, hx of DVT, lupus anticoagulant, H. 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 Gender Identity Not on file Sexual Orientation Not on file Last Filed Vital Signs Vital Sign Reading Time Taken Comments Blood Pressure 144/58 09/19/2025 2:08 PM CDT Pulse 87 09/19/2025 2:08 PM CDT Temperature 36.3 C (97.3 F) 09/19/2025 2:08 PM CDT Respiratory Rate 20 09/19/2025 2:08 PM CDT Oxygen Saturation 95% 09/19/2025 2:08 PM CDT Inhaled Oxygen Concentration - - Weight 89.6 kg (197 lb 9.6 oz) 09/19/2025 2:08 P M CDT Height 177.8 cm (5' 10) 09/19/2025 2:08 PM CDT Body Mass Index 28.35 09/19/2025 2:08 PM CDT Plan of Treatment Health Maintenance Due Date Last Done Comments Albumin Creatinine Ratio, Urine 1945 Depression Screening 1945 Fall Risk Assessment 1945 Dilated Eye Exam 1945 Foot Exam 1945 Lipid Panel 1945 Hepatitis B Screening 1963 Abdominal Aortic Aneurysm (A AA) Screen 2010 Well Visit 65+ 2010 Hemoglobin A1C 02/01/2025 08/04/2024, 07/07/2024 eGFR 02/20/2026 02/20/2025, 01/01, 12/26/2024, Additional history exists Covid-19 Vaccine (6 - Modern a risk season) 2026 09/19/2025, 11/04/2023, 08/12/2022, Additional history exists DTaP/Tdap/Td Vaccine (2 - Td or Tdap) 08/11/2032 08/11/2022 Pneumococcal vaccine 65+ Completed 12/24/2022 Zoster Vaccine Completed 02/23/2023, 12/01, 10/17/2015, Additional history exists Influenza Vaccine Completed 09/12/2025, , 08/26/2022, Additional history exists Procedures Procedure Name Priority Date/Time Associated Diagnosis Comments FOLATE Routine 09/19/2025 1:40 PM CDT Iron deficiency anemia due to chronic blood loss VITAMIN B12 Routine 09/19/2025 1:40 PM CDT Iron deficiency anemia due to chronic blood loss DIFFERENTIAL AUTO Routine 09/19/2025 1:4 0 PM CDT CBC WITH AUTO DIFFERENTIAL Routine 09/19/2025 1:40 PM CDT FERRITIN Routine 09/19/2025 1:40 PM CDT AVM (arteriovenous malformation) Antiphospholipid syndrome AVM (arteriovenous malformation) of colon with hemorrhage IRON PROFILE W/ IBC Routine 09/19/2025 1 :40 PM CDT AVM (arteriovenous malformation) Antiphospholipid syndrome AVM (arteriovenous malformation) of colon with hemorrhage EGFR Routine 02/20/2025 2:20 PM CDT AVM (arteriovenous malformation) Iron deficiency anemia due to chronic blood loss HEMOGLOBIN A1C Routine 08/04/2024 9:05 AM CDT Hyperglycemia due to diabetes mellitus (HCC) from Last 3 Months or Most Recently Relevant to Health Maintenance Results * Differential, auto (09/19/2025 1:40 PM CDT) Neutrophil abs 4.40 1.50 - 6.50 K/cumm Comment:Testing performed by : [facility], [facility], [place], [address] Imm gran abs 0.03 0.00 - 0.10 K/cumm [facility] ([place]) Comment:Testing performed by : [facility], [facility], [place], [address] Lymphocyte abs 1.21 0.80 - 3.30 K/cumm [facility] ([place]) Comment:Testing performed by : [facility], [facility], [place], [address] Monocyte abs 0.24 0.20 - 0.80 K/cumm [facility] ([place]) Comment:Testing performed by : [facility], [facility], [place], [address] Eosinophil abs 0.22 0.00 - 0.50 K/cumm [facility] ([place]) Comment:Testing performed by : [facility], [facility], [place], [address] Basophil abs 0.05 0.00 - 0.10 K/cumm [facility] ([place]) Comment:Testing performed by : [facility], [place], [address] Neutrophil pct 71.5 % [facility] ([place]) Comment: Differential consistent with previous result. Interpretive Data Percent cell count reference ranges are not reported, since discordance with absolute values may lead to misinterpretation of CBC data. Current Interpretive Data was last revised on 2018. Testing performed by: [facility], [facility], [place], [address] Imm gran pct 0.5 % [facility] ([place]) Comment: Interpretive Data Percent cell count reference ranges are not reported, since discordance with absolute values may lead to misinterpretation of CBC data. Current Interpretive Data was last revised on 2018. Testing performed by: [facility], [place], [address] Lymphocyte pct 19.7 % [facility] ([place]) Comment: Interpretive Data Percent cell count reference ranges are not reported, since discordance with absolute values may lead to misinterpretation of CBC data. Current Interpretive Data was last revised on 2018. Testing performed by: [place], [address] Monocyte pct 3.9 % [facility] ([place]) Comment: Interpretive Data Percent cell count reference ranges are not reported, since discordance with absolute values may lead to misinterpretation of CBC data. Current Interpretive Data was last revised on 2018. Testing performed by: [facility], [place], [address] Eosinophil pct 3.6 % [facility] ([place]) Comment: Interpretive Data Percent cell count reference ranges are not reported, since discordance with absolute values may lead to misinterpretation of CBC data. Current Interpretive Data was last revised on 2018. Testing performed by: [facility], [place], [address] Basophil pct 0.8 % [facility] ([place]) Comment: Interpretive Data Percent cell count reference ranges are not reported, since discordance with absolute values may lead to misinterpretation of CBC data. Current Interpretive Data was last revised on 2018. Testing performed by: [facility], [place], [address] Blood 09/19/2025 1:40 PM CDT 09/19/2025 2:30 PM CDT us Natanael Parrish MD LAB BLOOD ORDERABLES Johana tran Result [facility] ([place]) 1 [facility] Department [place] [address] * Iron profile w/ IBC (09/19/2025 1:40 PM CDT) Iron 133 50 - 150 mcg/dL Comment:Testing performed by : [facility], [place], [address] TIBC 372 250 - 400 mcg/dL [facility] ([place]) Comment:Testing performed by : [facility], [place], [address] Transferrin saturation 36 20 - 50 % [facility] ([place]) Comment:Testing performed by : [facility], [place], [address] Blood 09/19/2025 1:40 PM CDT 09/19/2025 2:11 PM CDT us Rosy Jeronimo FERRYBOAT OPERATOR HELPER LAB BLOOD ORDERABLES Final Result [facility] ([place] 1 [facility] Department [place] [address] * (ABNORMAL) CBC with auto differential (09/19/2025 1:40 PM CDT) WBC 6.15 3.80 - 9.90 K/cumm Comment:Testing performed by : [place], [address] Hgb 11.3(L) 13.0 - 17.5 g/dL [facility] ([place]) Comment:Testing performed by : [place], [address] Hct 34.5(L) 38.9 - 50.3 % [facility] ([place]) Comment:Testing performed by : [place], [address] Plt 225 150 - 400 K/cumm [facility] ([place]) Comment:Testing performed by : [place], [address] MPV 9.5 9.1 - 12.3 fL [facility] ([place]) Comment:Testing performed by : [place], [address] RBC 3.38(L) 4.30 - 5.80 M/cumm [facility] ([place]) Comment:Testing performed by : [place], [address] MCV 102.1(H) 81.3 - 96.4 fL [facility] ([place]) Comment:Testing performed by : [facility], [place], [address] MCH 33.4(H) 27.1 - 33.3 pg [facility] ([place]) Comment:Testing performed by : [place], [address] MCHC 32.8 32.3 - 35.7 g/dL [facility] ([place]) Comment:Testing performed by : [place], [address] RDW CV 15.2(H) 11.1 - 14.9 % [facility] ([place]) Comment:Testing performed by : [place], [address] RDW SD 57.1(H) 35.7 - 48.1 fL [facility] ([place]) Comment:Testing performed by : [facility], [place], [address] NRBC abs 0.00 0.00 - 0.01 K/cumm [facility] ([place]) Comment:Testing performed by : [place], [address] Blood 09/19/2025 1:40 PM CDT 09/19/2025 2:30 PM CDT us Natanael Parrish MD LAB BLOOD ORDERABLES Johana l Result [facility] ([place]) [address] [place] [address] Department [place] [address] * Folate (09/19/2025 1:40 PM CDT) Folic acid >20.0 >=5.0 ng/mL Comment:Testing performed by : [place], [address] Blood 09/19/2025 1:40 PM CDT 09/19/2025 3:14 PM CDT us Rosy Jeronimo NP LAB BLOOD ORDERABLES Final Result [facility] ([place]) [address] [place] [address] Department [place] [address] * Ferritin (09/19/2025 1:40 PM CDT) Ferritin 73 30 - 400 ng/mL Comment:Testing performed by : [place], [address] Blood 09/19/2025 1:40 PM CDT 09/19/2025 2:11 PM CDT us Rosy Jeronimo FERRYBOAT OPERATOR HELPER LAB BLOOD ORDERABLES Final Result [facility] ([place]) 1 [facility] Department [place] [address] * Vitamin B12 (09/19/2025 1:40 PM CDT) Vitamin B12 902 230 - 1,250 pg/mL Comment:Testing performed by : [place], [address] Blood 09/19/2025 1:40 PM CDT 09/19/2025 3:14 PM CDT us Rosy Jeronimo FERRYBOAT OPERATOR HELPER LAB BLOOD ORDERABLES Final Result [facility] ([place] 1 [facility] Department [place] [address] * eGFR (02/20/2025 2:20 PM CDT) eGFR 89 >=60 mL/min/1. 73 m2 Comment: [...] was last reviewed 2021. Testing performed by: [place], [address] Blood 02/20/2025 2:20 PM CDT 02/20/2025 3:19 PM CDT us Natanael Parrish MD LAB BLOOD ORDERABLES Johana l Result Performing Organization Address City/[facility]/ZIP Co de Phone Number [facility] ([place]) 1 [facility] Department [place] [address] * (ABNORMAL) Hemoglobin A1c (08/04/2024 9:05 AM CDT) Hgb A1C 10.8(H) 4.0 - 5.6 % Comment:Testing performed by : [place], [address] Estimated Average Glucose 263 mg/dL [facility] ([place]) Comment: The ADA recommends reporting an estimated Average Glucose (eAG) with all Hemoglobin A1c results using the equation derived from a study of 507 normal and diabetic adults. Minority populations were underrepresented and children were not included. (Diabetes Care 31:3979-8442, 2008). The eAG is not equivalent to a fasting glucose. Testing performed by: [place], [address] Blood 08/04/2024 9:05 AM CDT 08/04/2024 9:24 AM CDT us Wilian Nation MD LAB BLOOD ORDERABLES Final Re sult [facility] ([place]) 1 [facility] Department [place] [address] from Last 3 Months or Most Recently Relevant to Health Maintenance Insurance [facility] MEDICARE ADVANTAGE [facility] Address: [address] [address] [place] [address] [place] [address] [facility] MEDICARE ADVANTAGE [facility] Address: [address] [address] [place] [address] [place] [address] Care Teams Grey Goods Examiner Relationship Specialty Start Date End Date Clifton Dailey DO PCP - General 05/02/09 Natanael Parrish MD [address] [place] [address] [place] [address] Medical Oncologist/Soccer Ball Assembler Medical Oncology 05/18/25
[2025-10-12 12:58] LABS: Hematocrit 40.1 % (42.0-52.0); Hemoglobin 12.7 g/dL (14.0-18.0); Mean Corpuscular HGB Conc 31.7 g/dl (32-36); Mean Corpuscular Hemoglobin 33.6 pg (26-34); Mean Corpuscular Volume 106.1 fl (80-100); Platelet Count Result 229 k/mm3 (150-375); Red Blood Count 3.78 M/mm3 (4.6-6.20); White Blood Count 9.8 K/mm3 (4.5-10.0)
[2025-10-12 13:09] LABS: Alanine Aminotransferase 60 U/L (6-50); Albumin Level 3.7 g/dL (3.5-5.1); Alkaline Phosphatase 243 U/L (38-126); Amylase 85 U/L (30-110); Anion Gap 1 mmol/L (4-12); Aspartate Amino Transferase 66 U/L (17-59); Bilirubin,Total 0.4 mg/dL (0.2-1.3); Blood Urea Nitrogen 15 mg/dL (9-20); Calcium 10.2 mg/dL (8.4-10.2); Carbon Dioxide 32 mmol/L (22-30); Chloride 99 mmol/L (98-107); Estimated Glomerular Filt Rate > 60; Glucose 192 mg/dL (65-110); Lipase 139 U/L (23-300); Potassium 4.3 mmol/L (3.4-5.0); Sodium 132 mmol/L (137-145); Total Protein 10.1 g/dL (6.3-8.2)
[2025-10-12 13:22] LABS: INR 2.6; Prothrombin Time 27.2 Seconds (11.1-14.7)
[2025-10-12 13:40] LABS: Band Neutrophils Percent 9 % (0-6); Eosinophils Absolute Manual 0.49 K/mm3 (0.02-0.50); Eosinophils Percent Manual 5 % (0-4); Lymphocytes Absolute Manual 1.37 K/mm3 (1.1-4.5); Lymphocytes Percent Manual 14 % (18-44); Macrocytosis 1+ (NORMAL); Monocytes Absolute Manual 0.09 K/mm3 (0.1-0.90); Monocytes Percent Manual 1 % (3-9); Neutrophils Absolute Manual 7.84 K/mm3 (1.3-6.7); Neutrophils Percent Manual 71 % (46-73); Tear Drop Cells Occasional; Total Cells Counted 100
[2025-10-12 13:41] LABS: Schistocytes None Seen
[2025-10-12 16:13] LABS: Hemoglobin A1C 7.5 % (<5.7)
[2025-10-13 10:42] LABS: Thyroid Stimulating Hormone 2.660 uIU/mL (0.465-4.680)
[2025-10-13 11:18] LABS: Ferritin 45.10 ng/mL (11.1-264)
== END 2025-10-12 09:46 | disposition home or self-care (01) ==
LOC: ANHGOSHLAB 09:46
PROVIDERS: PCP Internal Medicine; Visit Provider Internal Medicine
DX: R10.9 Unspecified abdominal pain (principal); E11.42 Type 2 diabetes mellitus with diabetic polyneuropathy; D68.61 Antiphospholipid syndrome; D64.9 Anemia, unspecified; E03.9 Hypothyroidism, unspecified; Z51.81 Encounter for therapeutic drug level monitoring; Z79.01 Long term (current) use of anticoagulants; Z87.19 Personal history of other diseases of the digestive system
CPT/HCPCS: 36415; 80053; 82150; 82728; 83036; 83690; 84443; 85025; 85610

== ENCOUNTER 2025-10-12 10:26 | Outpatient (CLI) | payer MEDICARE, SELFPAY ==
--- NOTE | ~2025-10-12 | CT_ITS ---
CT abdomen pelvis w con Clinical History: R10.9 - Unspecified abdominal pain . Comparison: None Technique: Axial images lung bases to symphysis pubis 100 mL Omnipaque 350 Coronal, sagittal reformats CT images acquired with automatic exposure control for dose reduction DLP: 807 mGy-cm Findings: Lung bases: Incompletely seen nodule right upper lobe at 14 mm. Visualized heart and pericardium: Coronary artery calcification. Liver: Enlarged. Steatosis. Early cirrhosis not excluded. Gallbladder: Stones. Spleen: Unremarkable. Pancreas: Unremarkable. Adrenal glands: Unremarkable. Kidneys: Right kidney- No hydronephrosis. Several small stones. Cysts. Left kidney- No hydronephrosis. Several stones, largest 14 mm. Cyst. Distal esophagus/stomach: Gastric wall thickening. Small sliding hiatal hernia Small bowel loops: Normal caliber and wall thickness. Colon: Normal caliber and wall thickness. Appendix not seen. Nodes: No enlarged nodes. Peritoneum: No ascites. No free air. Urinary bladder: Unremarkable. Prostate: Unremarkable. Bones: No acute bony abnormality. Soft tissues: Unremarkable. Aorta: No aneurysm or dissection. Atherosclerotic disease. IVC: Unremarkable. Main portal vein/SMV/splenic vein: Patent. IMPRESSION: 1. Recommend CT chest. Incompletely seen 14 mm nodule right upper lobe. 2. Gastritis. 3. Additional findings as above. Reviewed, dictated and finalized at location R. TENANCE OF WAY SUPERINTENDENT
[2025-10-12 11:03] LABS: Estimated Glomerular Filt Rate > 60
--- OUTSIDE RECORDS SUMMARY | 2025-10-12 11:24 | XMS_ITS | Clinical Summary ---
Author Organization [facility] Address [address] [place] [address] Care Team Providers Care Underwater Hunter Name Role Phone Clifton Dailey DO Primary Care Provider [phone] Natanael Parrish MD Unavailable [phone] Allergies No known active allergies Medications metFORMIN [...] Syringe (ml)SQas directedInject 1 syringe (100mcg) SQ [id number]/2014Continu e 11/16/20 14 Active omeprazole (PriLOSEC) 20 [...] Description 09/19/2025 2:45 PM CDT Office Visit [facility] Medicine Physicians [facility] Oncology [address] [place] [address] Medical Office [facility] [address] [place] [phone] Rosy Jeronimo, ALEAH AVM (arteriovenous malformation) (Primary Dx); Iron deficiency anemia due to chronic blood loss; Antiphospholipid syndrome 09/19/2025 2:15 PM CDT Lab [address] [place] [address] AVM (arteriovenous malformation); Antiphospholipid syndrome; AVM (arteriovenous malformation) of colon with hemorrhage; Iron deficiency anemia due to chronic blood loss 09/13/[address] [place] [address] Herminia Acosta, RN 09/13/2025 Telephone [facility] Medicine Physicians [facility] Oncology [address] [place] [address] Medical Office [address] [place] [phone] Nargis Nick CLT from Last 3 Months Immunizations Immunization Administration Dates Next Due COVID-19 mRNA (Perkle) 0.3 m L (30 mcg) vaccine (12 [...] of DVT, lupus anticoagulant, H. 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 Gender Identity Not on file Sexual [...] - 6.50 K/cumm Comment:Testing performed by : [facility], [facility], [place], [address] Imm gran abs 0.03 0.00 - 0.10 K/cumm [facility] ([place]) Comment:Testing performed by : [facility], [facility], [place], [address] Lymphocyte abs 1.21 0.80 - 3.30 K/cumm [facility] ([place]) Comment:Testing performed by : [facility], [facility], [place], [address] Monocyte abs 0.24 0.20 - 0.80 K/cumm [facility] ([place]) Comment:Testing performed by : [facility], [facility], [place], [address] Eosinophil abs 0.22 0.00 - 0.50 K/cumm [facility] ([place]) Comment:Testing performed by : [facility], [facility], [place], [address] Basophil abs 0.05 0.00 - 0.10 K/cumm [facility] ([place]) Comment:Testing performed by : [facility], [place], [address] Neutrophil pct 71.5 % [facility] ([place]) Comment: Differential consistent with previous result. Interpretive Data Percent cell count reference ranges are not reported, since discordance with absolute values may lead to misinterpretation of CBC data. Current Interpretive Data was last revised on 2018. Testing performed by: [facility], [facility], [place], [address] Imm gran pct 0.5 % [facility] ([place]) Comment: Interpretive Data Percent cell count reference ranges are not reported, since discordance with absolute values may lead to misinterpretation of CBC data. Current Interpretive Data was last revised on 2018. Testing performed by: [facility], [place], [address] Lymphocyte pct 19.7 % [facility] ([place]) Comment: Interpretive Data Percent cell count reference ranges are not reported, since discordance with absolute values may lead to misinterpretation of CBC data. Current Interpretive Data was last revised on 2018. Testing performed by: [place], [address] Monocyte pct 3.9 % [facility] ([place]) Comment: Interpretive Data Percent cell count reference ranges are not reported, since discordance with absolute values may lead to misinterpretation of CBC data. Current Interpretive Data was last revised on 2018. Testing performed by: [facility], [place], [address] Eosinophil pct 3.6 % [facility] ([place]) Comment: Interpretive Data Percent cell count reference ranges are not reported, since discordance with absolute values may lead to misinterpretation of CBC data. Current Interpretive Data was last revised on 2018. Testing performed by: [facility], [place], [address] Basophil pct 0.8 % [facility] ([place]) Comment: Interpretive Data Percent cell count reference ranges are not reported, since discordance with absolute values may lead to misinterpretation of CBC data. Current Interpretive Data was last revised on 2018. Testing performed by: [facility], [place], [address] Blood 09/19/2025 1:40 PM CDT 09/19/2025 2:30 PM CDT us Natanael Parrish MD LAB BLOOD ORDERABLES Johana tran Result [facility] ([place]) 1 [facility] Department [place] [address] * Iron profile w/ IBC (09/19/2025 1:40 PM CDT) Iron 133 50 - 150 mcg/dL Comment:Testing performed by : [facility], [place], [address] TIBC 372 250 - 400 mcg/dL [facility] ([place]) Comment:Testing performed by : [facility], [place], [address] Transferrin saturation 36 20 - 50 % [facility] ([place]) Comment:Testing performed by : [facility], [place], [address] Blood 09/19/2025 1:40 PM CDT 09/19/2025 2:11 PM CDT us Rosy Jeronimo [facility] LAB BLOOD ORDERABLES Final Result [facility] ([place]) 1 [facility] Department [place] [address] * (ABNORMAL) CBC with auto differential (09/19/2025 1:40 PM CDT) WBC 6.15 3.80 - 9.90 K/cumm Comment:Testing performed by : [place], [address] Hgb 11.3(L) 13.0 - 17.5 g/dL [facility] ([place]) Comment:Testing performed by : [place], [address] Hct 34.5(L) 38.9 - 50.3 % [facility] ([place]) Comment:Testing performed by : [place], [address] Plt 225 150 - 400 K/cumm [facility] ([place]) Comment:Testing performed by : [place], [address] MPV 9.5 9.1 - 12.3 fL [facility] ([place]) Comment:Testing performed by : [place], [address] RBC 3.38(L) 4.30 - 5.80 M/cumm [facility] ([place]) Comment:Testing performed by : [place], [address] MCV 102.1(H) 81.3 - 96.4 fL [facility] ([place]) Comment:Testing performed by : [facility], [place], [address] MCH 33.4(H) 27.1 - 33.3 pg [facility] ([place]) Comment:Testing performed by : [place], [address] MCHC 32.8 32.3 - 35.7 g/dL [facility] ([place]) Comment:Testing performed by : [place], [address] RDW CV 15.2(H) 11.1 - 14.9 % [facility] ([place]) Comment:Testing performed by : [place], [address] RDW SD 57.1(H) 35.7 - 48.1 fL [facility] ([place]) Comment:Testing performed by : [facility], [place], [address] NRBC abs 0.00 0.00 - 0.01 K/cumm [facility] ([place]) Comment:Testing performed by : [place], [address] Blood 09/19/2025 1:40 PM CDT 09/19/2025 2:30 PM CDT us Natanael Parrish MD LAB BLOOD ORDERABLES Johana l Result [facility] ([place]) [address] [place] [address] Department [place] [address] * Folate (09/19/2025 1:40 PM CDT) Folic acid >20.0 >=5.0 ng/mL Comment:Testing performed by : [place], [address] Blood 09/19/2025 1:40 PM CDT 09/19/2025 3:14 PM CDT us Rosy Jeronimo NP LAB BLOOD ORDERABLES Final Result [facility] ([place]) [address] [place] [address] Department [place] [address] * Ferritin (09/19/2025 1:40 PM CDT) Ferritin 73 30 - 400 ng/mL Comment:Testing performed by : [place], [address] Blood 09/19/2025 1:40 PM CDT 09/19/2025 2:11 PM CDT us Rosy Jeronimo [facility] LAB BLOOD ORDERABLES Final Result [facility] ([place]) 1 [facility] [place] [address] * Vitamin B12 (09/19/2025 1:40 PM CDT) Vitamin B12 902 230 - 1,250 pg/mL Comment:Testing performed by : [place], [address] Blood 09/19/2025 1:40 PM CDT 09/19/2025 3:14 PM CDT us Rosy Jeronimo [facility] LAB BLOOD ORDERABLES Final Result [facility] ([place]) 1 [facility] [place] [address] * eGFR (02/20/2025 2:20 PM CDT) eGFR [...] was last reviewed 2021. Testing performed by: [place], [address] Blood 02/20/2025 2:20 PM CDT 02/20/2025 3:19 PM CDT us Natanael Parrish MD LAB BLOOD ORDERABLES Johana l Result Performing Organization Address City/[facility]/ZIP Co de Phone Number [facility] ([place]) 1 [facility] [place] [address] * (ABNORMAL) Hemoglobin A1c (08/04/2024 9:05 AM CDT) Hgb A1C 10.8(H) 4.0 - 5.6 % Comment:Testing performed by : [place], [address] Estimated Average Glucose 263 mg/dL [facility] ([place]) Comment: The ADA recommends reporting an estimated Average Glucose (eAG) with all Hemoglobin A1c results using the equation derived from a study of 507 normal and diabetic adults. Minority populations were underrepresented and children were not included. (Diabetes Care 31:0352-7446, 2008). The eAG is not equivalent to a fasting glucose. Testing performed by: [place], [address] Blood 08/04/2024 9:05 AM CDT 08/04/2024 9:24 AM CDT us Wilian Nation MD LAB BLOOD ORDERABLES Final Re sult [facility] ([place]) 1 [facility] [place] [address] from Last 3 Months or Most Recently Relevant to Health Maintenance Insurance [facility] MEDICARE ADVANTAGE [place] [address] [facility] [place] [address] Care Teams Underwater Hunter Relationship Specialty Start Date End Date Clifton Dailey DO PCP - General 05/02/09 Natanael Parrish MD [address] [place] [address] [place] [address] Medical Oncologist/Summer Internship Medical Oncology 05/18/25
--- OUTSIDE RECORDS SUMMARY | 2025-10-12 11:24 | XMS_ITS | Clinical Summary ---
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
== END 2025-10-12 10:27 | disposition home or self-care (01) ==
PROVIDERS: PCP Internal Medicine; Visit Provider Internal Medicine
DX: K29.70 Gastritis, unspecified, without bleeding (principal); K76.0 Fatty (change of) liver, not elsewhere classified; I31.1 Chronic constrictive pericarditis; R91.1 Solitary pulmonary nodule; K55.20 Angiodysplasia of colon without hemorrhage; I25.10 Atherosclerotic heart disease of native coronary artery without angina pectoris; K80.20 Calculus of gallbladder without cholecystitis without obstruction; N20.0 Calculus of kidney; N28.1 Cyst of kidney, acquired; K44.9 Diaphragmatic hernia without obstruction or gangrene; Z87.19 Personal history of other diseases of the digestive system
CPT/HCPCS: 36415; 74177; 80053; 82150; 82728; 83036; 83690; 85025; 85610; Q9967

== ENCOUNTER 2025-10-13 11:32 | Emergency (ER) | payer MEDICARE, SELFPAY ==
--- NOTE | ~2025-10-13 | XR_ITS ---
Examination: XR ankle LT min 3V Clinical History: left medial ankle pain, atraumatic? Comparison: None Technique: 4 views left ankle Findings/impression: No acute findings- 1. No acute fracture or dislocation left ankle. 2. Moderate degenerative changes along medial malleolus. 3. Degenerative changes along lateral malleolus. 4. Calcaneal enthesophyte at insertion site of plantar fascia. 5. Diabetic arteriopathy. Reviewed, dictated and finalized at location R. ROAD CAR CLEANER
--- NOTE | ~2025-10-13 | US_ITS ---
EXAMINATION: US venous doppler LE , 10/13/2025 13:33 PURCHASING MANAGER HISTORY: lower extremity swelling, r/o DVT Comparison: None Technique: Berumen-scale and color Doppler images were attempted of the lower saphenofemoral junction, common femoral vein,superficial femoral vein, proximal deep femoral vein, proximal deep femoral vein, popliteal vein and posterior tibial veins. Findings: Deep Venous System:Normal flow, augmentation and compressibility. No echogenic thrombus identified. The contralateral saphenofemoral junction appears unremarkable. Superficial Venous SystemNo superficial thrombophlebitis. Soft tissues: Soft tissues are unremarkable. Impression: Negative for DVT. Reviewed, dictated and finalized at location P. HASING MANAGER Impression: Negative for DVT.
[2025-10-13 11:38] VITALS: BP 133/64; PULSE 97; RESP 18; TEMP 36.6; O2SAT 97
[2025-10-13 13:01] VITALS: BP 136/68; O2SAT 97
[2025-10-13 13:16] VITALS: BP 134/65; O2SAT 97
--- NOTE | 2025-10-13 13:44 | ED_ITS ---
HPI - Extremity Problem General Chief complaint: Extremity Problem,Nontraumatic Stated complaint: pain in left leg, hx of clots Time Seen by Provider: 10/13/25 12:59 Source: patient and family Mode of arrival: ambulatory Limitations: no limitations History of Present Illness HPI Narrative: This is a an 80-year-old male with history of antiphospholipid syndrome on warfarin Related Data Home Medications ?Medication ?Instructions ?Recorded ?Confirmed ?Last Taken ?Type aspirin 81 mg tablet,delayed 81 mg PO DAILY 04/01/22 1 12/12/24 Unknown History release (Adult Low Dose Aspirin) smnnapptzqpk-dpa-kqohl acid-vit 1 tablet PO DAILY 02/1810/12/25 Unknown History K-lycop 400 mcg-20 mcg-370 mcg tablet (Men's 50 Plus Multivitamin) omega-3 fatty acids 1,000 mg 1,000 mg PO DAILY 2 10/12/25 Unknown History capsule ferrous sulfate 325 mg (65 mg 325 mg PO BID 09/22/24 1 12/12/24 Unknown History iron) tablet Allergies Allergy/AdvReac Type Severity Reaction Status Date / Time No Known Allergies Allergy Verified 10/12/25 08:42 [facility] Past Medical History Medical History 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 Acquired hypothyroidism 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 Encounter for monitoring Coumadin therapy Anti-phospholipid antibody syndrome Hyperlipidemia Hypertension Type 2 diabetes mellitus Blood clotting disorder Anemia Surgical History Surgical History H/O abdominal surgery History of appendectomy H/O spinal fusion 2010 Family History Family History Father Heart disease Mother Hypertension Lung cancer Sibling Diabetes mellitus Afib Grandparent Diabetes mellitus Social History Social History Social History: Caffeine- coffee Smoking packs per day: 2 Smoking cigarettes per day: 40.0 Smoking status: Former smoker Tobacco type: cigarettes Smoking end date: 11/30/97 Additional smoking assessment comments: Quit smoking 26 years ago Alcohol intake: current Drinks per week: 7 Alcohol use details: 1 daily Substance use: current Substance use type: marijuana Other substance usage details: gummies occasionally Do You Feel Safe in your Home?: Yes Lack of Transportation: No Lack of Food: Never True Current Housing: I Have Housing Concerned About Future Housing: No Difficulty Paying Gas/Electric Bills: No Difficulty Paying for Meds: No Currently Unemployed: No Education: Associate Degree Difficulty w/ Childcare or Family Care: No Course Vital Signs Vital signs: Vital Signs Temperature 97.8 F 10/13/25 11:38 Pulse Rate 97 10/13/25 11:38 Respiratory Rate 18 10/13/25 11:38 Blood Pressure 133/64 10/13/25 11:38 Pulse Oximetry 97 10/13/25 11:38 Oxygen Delivery Room Air 10/13/25 11:38 Temperature 97.8 F 10/13/25 11:38 Pulse Rate 97 10/13/25 11:38 Respiratory Rate 18 10/13/25 11:38 Blood Pressure 133/65 10/13/25 15:16 Pulse Oximetry 94 10/13/25 15:16 Oxygen Delivery Room Air 10/13/25 11:38 MDM - Extremity (Nontraumatic) MDM Narrative Medical decision making narrative: 80-year-old male Presenting for left leg pain. On initial evaluation patient was in no acute distress afebrile, hemodynamic stable. Differentials include but are not limited to: DVT, cellulitis, sprain, fracture, necrotizing fasciitis Notable exam findings: Area of tenderness and erythema to the medial aspect of the distal lower leg without fluctuance. I personally reviewed the patient's lab result. Notable lab findings: INR slightly subtherapeutic at 2.3. I personally reviewed the patient's images. Notable imaging findings: X-ray left ankle showed no acute process. Venous Doppler showed no evidence of DVT. Given that there is no DVT or sprain, patient likely has a cellulitis. He does have history of DVT. As he is on warfarin, he will be given a prescription for clindamycin which should have minimal interactions. He was given the 1st dose here. He was educated on Tylenol use at home. He was advised follow-up with his PCP in the next week for re-evaluation and to continue monitoring his warfarin. Patient was agreeable to this plan. Given strict return precautions. Lab Data Labs: Lab Results 10/13/25 Range/Units 13:55 PT 24.2 H (11.1-14.7) Seconds INR 2.3 Imaging Data Attestation: I personally reviewed and interpreted this imaging study as follows: Radiologist's impression: Impressions Venous Doppler Study 10/13/25 14:17 Impression: Negative for DVT. XR ankle LT min 3V Clinical History: left medial ankle pain, atraumatic? Comparison: None Technique: 4 views left ankle Findings/impression: No acute findings- 1. No acute fracture or dislocation left ankle. 2. Moderate degenerative changes along medial malleolus. 3. Degenerative changes along lateral malleolus. 4. Calcaneal enthesophyte at insertion site of plantar fascia. 5. Diabetic arteriopathy. Discharge Plan Discharge Clinical Impression: Subtherapeutic international normalized ratio (INR) Cellulitis Qualifiers: Site of cellulitis: extremity Site of cellulitis of extremity: lower extremity Laterality: left Qualified Code(s): L03.116 - Cellulitis of left lower limb Patient Disposition: Home Condition: Stable Instructions: Antibiotic Form, Cellulitis (ED) Additional Instructions: You likely have a cellulitis. Take Clindamycin as prescribed. He may take Tylenol pain. Follow-up with your PCP next week for re-evaluation. To take your med as prescribed. Return to the ED for any new or worsening symptoms. Patient Language: Arabic Prescriptions: New clindamycin HCl [Cleocin HCl] 150 mg capsule 450 mg PO Q8H Qty: 63 0RF Rx Instructions: 150 mg take 3 caps to = 450mg No Action omega-3 fatty acids 1,000 mg capsule 1,000 mg PO DAILY aspirin [Adult Low Dose Aspirin] 81 mg tablet,delayed release (DR/EC) 81 mg PO DAILY Men's 50 Plus Multivitamin 400-20-370 mcg tablet 1 tablet PO DAILY ferrous sulfate 325 mg (65 mg iron) tablet 325 mg PO BID alcohol swabs Pads, Medicated 1 pad topical BID Qty: 200 0RF warfarin 3 mg tablet 4.5 mg PO DAILY Qty: 30 2RF (DME) pen needle, diabetic [Comfort EZ Pen [employer]] 32 gauge x 3/16 needle See Rx Instructions .Route Qty: 200 1RF Rx Instructions: For use withinsulin omeprazole 20 mg capsule,delayed release(DR/EC) 20 mg PO DAILY Qty: 100 1RF ezetimibe 10 mg tablet See Rx Instructions .ROUTE .COMPLEX Qty: 100 1RF Dose Instruction: TAKE 1 TABLET BY MOUTH DAILY Rx Instructions: TAKE 1 TABLET BY MOUTH DAILY pravastatin 20 mg tablet See Rx Instructions .ROUTE .COMPLEX Qty: 100 1RF Dose Instruction: TAKE 1 TABLET BY MOUTH DAILY Rx Instructions: TAKE 1 TABLET BY MOUTH DAILY lisinopril-hydrochlorothiazide 10-12.5 mg tablet See Rx Instructions .ROUTE .COMPLEX Qty: 100 1RF Dose Instruction: TAKE 1 TABLET BY MOUTH DAILY Rx Instructions: TAKE 1 TABLET BY MOUTH DAILY levothyroxine 25 mcg tablet See Rx Instructions .ROUTE .COMPLEX Qty: 100 1RF Dose Instruction: TAKE 1 TABLET BY MOUTH DAILY Rx Instructions: TAKE 1 TABLET BY MOUTH DAILY gabapentin 300 mg capsule See Rx Instructions .ROUTE .COMPLEX Qty: 200 1RF Dose Instruction: TAKE 2 CAPSULES BY MOUTH DAILY Rx Instructions: TAKE 2 CAPSULES BY MOUTH DAILY insulin degludec [Tresiba FlexTouch U-200] 200 unit/mL (3 mL) insulin pen 20 unit subcut DAILY Qty: 9 2RF Rx Instructions: Inject 20 units once daily; Have food such as yogurt and fruit on hand incase need (DME) blood-glucose meter [Accu-Chek Guide Glucose Meter] Misc See Rx Instructions .Route Qty: 1 0RF Rx Instructions: Use to check BS BID (DME) Accu-Chek Guide test strips Strip See Rx Instructions .Route Qty: 100 3RF Rx Instructions: Use to check BS BID pioglitazone 45 mg tablet 45 mg PO DAILY Qty: 100 1RF metformin 1,000 mg tablet See Rx Instructions .ROUTE .COMPLEX Qty: 200 2RF Dose Instruction: TAKE 1 TABLET BY MOUTH TWICE DAILY Rx Instructions: TAKE 1 TABLET BY MOUTH TWICE DAILY warfarin 4 mg tablet 4 mg PO DAILY Qty: 90 1RF (DME) lancets [Accu-Chek Softclix Lancets] Misc See Rx Instructions .Route Qty: 200 1RF Rx Instructions: Use to check BS BID Follow-up/Referrals: Clifton Dailey, [Primary Care Provider, Internal Medicine]
[2025-10-13] MEDS: MORPHINE SULFATE (*CRX) 4 MG/ML INJ IV PUSH (13:47)
[2025-10-13] MEDS: BELLADONNA ALK/PHENOB ELIX 10 ML, MAG HYDROX/ALUMINUM HYD/SIMETH 30 ML, LIDOCAINE 2% VI... PO (13:49)
[2025-10-13 14:11] LABS: INR 2.3; Prothrombin Time 24.2 Seconds (11.1-14.7)
[2025-10-13 15:16] VITALS: BP 133/65; O2SAT 94
[2025-10-13] MEDS: CLINDAMYCIN HCL 150 MG CAP 450 MG PO (15:44)
[2025-10-13] MEDS: HYDROcodone/acetaminophen (*CRX) 5-325 MG TABLET 1 TAB PO (15:45)
== END 2025-10-13 15:53 | disposition home or self-care (01) ==
PROVIDERS: Emergency Provider Student in an Organized Health Care Education/Training Program; PCP Internal Medicine
DX: L03.116 Cellulitis of left lower limb (principal); I10 Essential (primary) hypertension; E11.42 Type 2 diabetes mellitus with diabetic polyneuropathy; E03.9 Hypothyroidism, unspecified; E78.5 Hyperlipidemia, unspecified; E11.51 Type 2 diabetes mellitus with diabetic peripheral angiopathy without gangrene; I77.9 Disorder of arteries and arterioles, unspecified; D68.61 Antiphospholipid syndrome; Z98.1 Arthrodesis status; Z86.2 Personal history of diseases of the blood and blood-forming organs and certain disorders involving the immune mechanism; Z87.891 Personal history of nicotine dependence; Z79.01 Long term (current) use of anticoagulants; Z79.82 Long term (current) use of aspirin; Z79.4 Long term (current) use of insulin; Z79.84 Long term (current) use of oral hypoglycemic drugs; Z79.899 Other long term (current) drug therapy; M77.32 Calcaneal spur, left foot
CPT/HCPCS: 36415; 73610; 85610; 93971; 96374; 99284; A9270; J2270

== ENCOUNTER 2025-10-16 08:46 | Outpatient (CLI) | payer MEDICARE, SELFPAY ==
[2025-10-16 13:19] LABS: Alanine Aminotransferase 96 U/L (6-50); Albumin Level 3.5 g/dL (3.5-5.1); Alkaline Phosphatase 392 U/L (38-126); Aspartate Amino Transferase 116 U/L (17-59); Bilirubin,Total 0.4 mg/dL (0.2-1.3); Total Protein 10.2 g/dL (6.3-8.2)
== END 2025-10-16 08:47 | disposition home or self-care (01) ==
PROVIDERS: PCP Internal Medicine; Visit Provider Internal Medicine
DX: R74.8 Abnormal levels of other serum enzymes (principal); R74.01 Elevation of levels of liver transaminase levels
CPT/HCPCS: 36415; 80076

== ENCOUNTER 2025-10-19 09:29 | Outpatient (CLI) | payer MEDICARE, SELFPAY ==
[2025-10-19 12:48] LABS: Hematocrit 54.4 % (42.0-52.0); Hemoglobin 17.5 g/dL (14.0-18.0); Immature Granulocyte Percent A 4.8 % (0-0.5); Lymphocytes Absolute Auto 2.61 K/mm3 (0.9-3.2); Mean Corpuscular HGB Conc 32.2 g/dl (32-36); Mean Corpuscular Hemoglobin 33.2 pg (26-34); Mean Corpuscular Volume 103.2 fl (80-100); Nucleated Red Blood Cells Absolute Auto 0.030 K/mm3 (0.0-0.012); Nucleated Red Blood Cells Perc 0.2 % (0.0-0.2); Platelet Count Result 389 k/mm3 (150-375); Red Blood Count 5.27 M/mm3 (4.6-6.20); White Blood Count 13.0 K/mm3 (4.5-10.0)
[2025-10-19 12:51] LABS: Iron 87 ug/dL (49-181)
[2025-10-19 12:59] LABS: Alanine Aminotransferase 124 U/L (6-50); Albumin Level 3.7 g/dL (3.5-5.1); Alkaline Phosphatase 463 U/L (38-126); Aspartate Amino Transferase 108 U/L (17-59); Bilirubin,Total 0.3 mg/dL (0.2-1.3)
[2025-10-19 13:01] LABS: Percent Iron Saturation 21 % (20-50)
[2025-10-19 14:15] LABS: Total Protein 11.4 g/dL (6.3-8.2)
[2025-10-20 07:09] LABS: GGT 368 IU/L (0-65)
[2025-10-20 07:17] LABS: Ferritin 154.00 ng/mL (11.1-264)
[2025-10-20 07:19] LABS: Hepatitis B Surface Antigen Negative (Negative)
[2025-10-20 07:53] LABS: Vitamin B12 1000.0 pg/mL (239-931)
[2025-10-20 16:08] LABS: Deamidated Gliadin Abs, IgA 5 units (0-19); Deamidated Gliadin Abs, IgG 4 units (0-19); Immunoglobulin A, Qn 29 mg/dL (61-437)
== END 2025-10-19 09:30 | disposition home or self-care (01) ==
LOC: ANHGOSHLAB 09:30
PROVIDERS: PCP Internal Medicine; Visit Provider Internal Medicine
DX: D64.9 Anemia, unspecified (principal); R74.8 Abnormal levels of other serum enzymes; D68.61 Antiphospholipid syndrome
CPT/HCPCS: 36415; 80076; 82607; 82728; 82746; 82784; 82977; 83540; 83550; 84075; 84080; 85025; 85652; 86231; 86258; 86803; 87340

== ENCOUNTER 2025-10-23 10:39 | Outpatient (CLI) | payer MEDICARE, SELFPAY ==
--- OUTSIDE RECORDS SUMMARY | 2025-10-23 12:30 | XMS_ITS | Clinical Summary ---
Author Organization [facility] Care Team Providers Care Turbine Technician Name Role Phone Unavailable Primary Care Provider [...]
== END 2025-10-23 10:40 | disposition home or self-care (01) ==
PROVIDERS: PCP Internal Medicine; Visit Provider Internal Medicine
DX: R74.8 Abnormal levels of other serum enzymes (principal); D68.61 Antiphospholipid syndrome; D64.9 Anemia, unspecified
CPT/HCPCS: 84075; 84080

== ENCOUNTER 2025-10-30 08:15 | Outpatient (CLI) | payer MEDICARE, SELFPAY ==
--- OUTSIDE RECORDS SUMMARY | 2025-10-30 08:26 | XMS_ITS | Clinical Summary ---
Author Organization [facility] Address [address] [place] [address] Care Team Providers Care Burlap Spreader Name Role Phone Clifton Dailey DO Primary Care Provider [phone] Natanael Parrish MD Unavailable [phone] Allergies No known active allergies Medications metFORMIN [...] Syringe (ml)SQas directedInject 1 syringe (100mcg) SQ [id number]/2014Continu e 11/16/20 14 Active omeprazole (PriLOSEC) 20 [...] Description 09/19/2025 2:45 PM CDT Office Visit [facility] Medicine Physicians [facility] Oncology [address] [place] [address] Medical Office [facility] [address] [place] [id number] Rosy Jeronimo, ALEAH AVM (arteriovenous malformation) (Primary Dx); Iron deficiency anemia due to chronic blood loss; Antiphospholipid syndrome 09/19/2025 2:15 PM CDT Lab [address] [place] [address] AVM (arteriovenous malformation); Antiphospholipid syndrome; AVM (arteriovenous malformation) of colon with hemorrhage; Iron deficiency anemia due to chronic blood loss 09/13/[address] [place] [address] Herminia Acosta, RN 09/13/2025 Telephone [facility] Medicine Physicians [facility] Oncology [address] [place] [address] Medical Office [address] [place] [phone] Nargis Nick CLT from Last 3 Months Immunizations Immunization Administration Dates Next Due COVID-19 mRNA (Grow) 0.3 m L (30 mcg) vaccine (12 [...] of DVT, lupus anticoagulant, H. 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 Gender Identity Not on file Sexual Orientation [...] - 6.50 K/cumm Comment:Testing performed by : [facility], [facility], [place], [address] Imm gran abs 0.03 0.00 - 0.10 K/cumm [facility] ([place]) Comment:Testing performed by : [facility], [facility], [place], [address] Lymphocyte abs 1.21 0.80 - 3.30 K/cumm [facility] ([place]) Comment:Testing performed by : [facility], [facility], [place], [address] Monocyte abs 0.24 0.20 - 0.80 K/cumm [facility] ([place]) Comment:Testing performed by : [facility], [facility], [place], [address] Eosinophil abs 0.22 0.00 - 0.50 K/cumm [facility] ([place]) Comment:Testing performed by : [facility], [facility], [place], [address] Basophil abs 0.05 0.00 - 0.10 K/cumm [facility] ([place]) Comment:Testing performed by : [facility], [place], [address] Neutrophil pct 71.5 % [facility] ([place]) Comment: Differential consistent with previous result. Interpretive Data Percent cell count reference ranges are not reported, since discordance with absolute values may lead to misinterpretation of CBC data. Current Interpretive Data was last revised on 2018. Testing performed by: [facility], [facility], [place], [address] Imm gran pct 0.5 % [facility] ([place]) Comment: Interpretive Data Percent cell count reference ranges are not reported, since discordance with absolute values may lead to misinterpretation of CBC data. Current Interpretive Data was last revised on 2018. Testing performed by: [facility], [place], [address] Lymphocyte pct 19.7 % [facility] ([place]) Comment: Interpretive Data Percent cell count reference ranges are not reported, since discordance with absolute values may lead to misinterpretation of CBC data. Current Interpretive Data was last revised on 2018. Testing performed by: [place], [address] Monocyte pct 3.9 % [facility] ([place]) Comment: Interpretive Data Percent cell count reference ranges are not reported, since discordance with absolute values may lead to misinterpretation of CBC data. Current Interpretive Data was last revised on 2018. Testing performed by: [facility], [place], [address] Eosinophil pct 3.6 % [facility] ([place]) Comment: Interpretive Data Percent cell count reference ranges are not reported, since discordance with absolute values may lead to misinterpretation of CBC data. Current Interpretive Data was last revised on 2018. Testing performed by: [facility], [place], [address] Basophil pct 0.8 % [facility] ([place]) Comment: Interpretive Data Percent cell count reference ranges are not reported, since discordance with absolute values may lead to misinterpretation of CBC data. Current Interpretive Data was last revised on 2018. Testing performed by: [facility], [place], [address] Blood 09/19/2025 1:40 PM CDT 09/19/2025 2:30 PM CDT us Natanael Parrish MD LAB BLOOD ORDERABLES Johana tran Result [facility] ([place]) [facility] [place] [address] * Iron profile w/ IBC (09/19/2025 1:40 PM CDT) Iron 133 50 - 150 mcg/dL Comment:Testing performed by : [facility], [place], [address] TIBC 372 250 - 400 mcg/dL [facility] ([place]) Comment:Testing performed by : [facility], [place], [address] Transferrin saturation 36 20 - 50 % [facility] ([place]) Comment:Testing performed by : [facility], [place], [address] Blood 09/19/2025 1:40 PM CDT 09/19/2025 2:11 PM CDT us Rosy Jeronimo SENIOR RD ENGINEER LAB BLOOD ORDERABLES Final Result [facility] ([place]) [address] [facility] [place] [address] * (ABNORMAL) CBC with auto differential (09/19/2025 1:40 PM CDT) WBC 6.15 3.80 - 9.90 K/cumm Comment:Testing performed by : [place], [address] Hgb 11.3(L) 13.0 - 17.5 g/dL [facility] ([place]) Comment:Testing performed by : [place], [address] Hct 34.5(L) 38.9 - 50.3 % [facility] ([place]) Comment:Testing performed by : [place], [address] Plt 225 150 - 400 K/cumm [facility] ([place]) Comment:Testing performed by : [place], [address] MPV 9.5 9.1 - 12.3 fL [facility] ([place]) Comment:Testing performed by : [place], [address] RBC 3.38(L) 4.30 - 5.80 M/cumm [facility] ([place]) Comment:Testing performed by : [place], [address] MCV 102.1(H) 81.3 - 96.4 fL [facility] ([place]) Comment:Testing performed by : [facility], [place], [address] MCH 33.4(H) 27.1 - 33.3 pg [facility] ([place]) Comment:Testing performed by : [place], [address] MCHC 32.8 32.3 - 35.7 g/dL [facility] ([place]) Comment:Testing performed by : [place], [address] RDW CV 15.2(H) 11.1 - 14.9 % [facility] ([place]) Comment:Testing performed by : [place], [address] RDW SD 57.1(H) 35.7 - 48.1 fL [facility] ([place]) Comment:Testing performed by : [facility], [place], [address] NRBC abs 0.00 0.00 - 0.01 K/cumm [facility] ([place]) Comment:Testing performed by : [place], [address] Blood 09/19/2025 1:40 PM CDT 09/19/2025 2:30 PM CDT us Natanael Parrish MD LAB BLOOD ORDERABLES Johana l Result [facility] ([place]) [address] [place] [address] [place] [address] * Folate (09/19/2025 1:40 PM CDT) Folic acid >20.0 >=5.0 ng/mL Comment:Testing performed by : [place], [address] Blood 09/19/2025 1:40 PM CDT 09/19/2025 3:14 PM CDT us Rosy Jeronimo NP LAB BLOOD ORDERABLES Final Result [facility] ([place]) [address] [place] [address] [place] [address] * Ferritin (09/19/2025 1:40 PM CDT) Ferritin 73 30 - 400 ng/mL Comment:Testing performed by : [place], [address] Blood 09/19/2025 1:40 PM CDT 09/19/2025 2:11 PM CDT us Rosy Jeronimo SENIOR RD ENGINEER LAB BLOOD ORDERABLES Final Result [facility] ([place]) [facility] [place] [address] * Vitamin B12 (09/19/2025 1:40 PM CDT) Vitamin B12 902 230 - 1,250 pg/mL Comment:Testing performed by : [place], [address] Blood 09/19/2025 1:40 PM CDT 09/19/2025 3:14 PM CDT us Rosy Jeronimo SENIOR RD ENGINEER LAB BLOOD ORDERABLES Final Result [facility] ([place]) [facility] [place] [address] * eGFR (02/20/2025 2:20 PM CDT) eGFR [...] was last reviewed 2021. Testing performed by: [place], [address] Blood 02/20/2025 2:20 PM CDT 02/20/2025 3:19 PM CDT us Natanael Parrish MD LAB BLOOD ORDERABLES Johana l Result Performing Organization Address City/[facility]/ZIP Co de Phone Number [facility] ([place]) [address] [facility] [place] [address] * (ABNORMAL) Hemoglobin A1c (08/04/2024 9:05 AM CDT) Hgb A1C 10.8(H) 4.0 - 5.6 % Comment:Testing performed by : [place], [address] Estimated Average Glucose 263 mg/dL [facility] ([place]) Comment: The ADA recommends reporting an estimated Average Glucose (eAG) with all Hemoglobin A1c results using the equation derived from a study of 507 normal and diabetic adults. Minority populations were underrepresented and children were not included. (Diabetes Care 31:2752-8965, 2008). The eAG is not equivalent to a fasting glucose. Testing performed by: [place], [address] Blood 08/04/2024 9:05 AM CDT 08/04/2024 9:24 AM CDT us Wilian Nation MD LAB BLOOD ORDERABLES Final Re sult [facility] ([place]) [address] [facility] [place] [address] from Last 3 Months or Most Recently Relevant to Health Maintenance Insurance [employer] [place] [id number] [employer] [place] [id number] Care Teams Burlap Spreader Relationship Specialty Start Date End Date Clifton Dailey DO PCP - General 05/02/09 Natanael Parrish MD [address] [place] [address] [place] [address] Medical Oncologist/Qa Auditor Medical Oncology 05/18/25
--- OUTSIDE RECORDS SUMMARY | 2025-10-30 08:28 | XMS_ITS | Clinical Summary ---
Author Organization [facility] Care Team Providers Care J2Ee Software Engineer Name Role Phone Unavailable Primary Care Provider [...]
--- OUTSIDE RECORDS SUMMARY | 2025-10-30 08:28 | XMS_ITS | Patient Health Record ---
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
--- OUTSIDE RECORDS SUMMARY | 2025-10-30 08:28 | XMS_ITS | Clinical Summary ---
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 Gender Identity Not on file Sexual Orientation Not on file Plan of Treatment Upcoming Encounters Date Type Department Care Team (Late st Contact Info) Description 11/17/2025 2:00 PM SLIDER ASSEMBLER Appointment [facility] [address] [place], [place] [id number] Clifton Dailey, DO [address] [place] [id number] Health Maintenance Due Date Last Done Comments DTaP, Tdap and Td Vaccines ( 1 - Tdap) 1964 Pneumococcal Vaccine: 50+ Ye ars (1 of 1 - PCV) 1995 Zoster Vaccines (1 of 2) 1995 Annual Medicare Wellness Visit 2010 Dexa Scan (General) 2010 RSV Immunization or 60+ Years (1 - 1-dose 75+ series) 2020 COVID-19 Vaccine ( - 2024-2 6 season) 2025 Influenza Adult (#1) 2025 Hepatitis A Vaccines Aged Out No long er eligible based on patient's age to complete this topic Meningococcal B Vaccine Aged Out No l onger eligible based on patient's age to complete this topic Meningococcal Vaccine Aged Out No james yessica eligible based on patient's age to complete this topic RSV Immunizations Under 20 Months Aged Out No longer eligible based on patient's age to complete this topic Insurance U[employer] MEDICARE
[2025-10-30 19:40] LABS: Hematocrit 51.8 % (42.0-52.0); Hemoglobin 16.2 g/dL (14.0-18.0); Mean Corpuscular HGB Conc 31.3 g/dl (32-36); Mean Corpuscular Hemoglobin 33.4 pg (26-34); Mean Corpuscular Volume 106.8 fl (80-100); Platelet Count Result 390 k/mm3 (150-375); Red Blood Count 4.85 M/mm3 (4.6-6.20); White Blood Count 9.8 K/mm3 (4.5-10.0)
[2025-10-30 19:54] LABS: Alanine Aminotransferase 61 U/L (6-50); Albumin Level 3.2 g/dL (3.5-5.1); Alkaline Phosphatase 340 U/L (38-126); Anion Gap 1 mmol/L (4-12); Aspartate Amino Transferase 72 U/L (17-59); Bilirubin,Total 0.2 mg/dL (0.2-1.3); Blood Urea Nitrogen 14 mg/dL (9-20); Calcium 10.0 mg/dL (8.4-10.2); Carbon Dioxide 29 mmol/L (22-30); Chloride 105 mmol/L (98-107); Estimated Glomerular Filt Rate > 60; Glucose 209 mg/dL (65-110); Potassium 4.8 mmol/L (3.4-5.0); Sodium 135 mmol/L (137-145); Total Protein 9.8 g/dL (6.3-8.2)
[2025-10-30 20:45] LABS: Band Neutrophils Percent 1 % (0-6); Basophils Absolute Manual 0.09 K/mm3 (0.0-0.1); Basophils Percent Manual 1 % (0-1); Eosinophils Absolute Manual 0.68 K/mm3 (0.02-0.50); Eosinophils Percent Manual 7 % (0-4); Lymphocytes Absolute Manual 2.15 K/mm3 (1.1-4.5); Lymphocytes Percent Manual 22.0 % (18-44); Monocytes Absolute Manual 0.98 K/mm3 (0.1-0.90); Monocytes Percent Manual 10 % (3-9); Neutrophils Absolute Manual 5.88 K/mm3 (1.3-6.7); Neutrophils Percent Manual 59 % (46-73); Total Cells Counted 100
[2025-10-30 20:46] LABS: Anisocytosis 2+; Macrocytosis 1+ (NORMAL); Schistocytes None Seen
[2025-10-31 07:08] LABS: GGT 364 IU/L (0-65)
== END 2025-10-30 08:16 | disposition home or self-care (01) ==
PROVIDERS: PCP Internal Medicine; Visit Provider Internal Medicine
DX: D64.9 Anemia, unspecified (principal); R74.8 Abnormal levels of other serum enzymes; D72.829 Elevated white blood cell count, unspecified
CPT/HCPCS: 36415; 80053; 82977; 84075; 84080; 85025

== ENCOUNTER 2025-10-31 10:45 | Outpatient (CLI) | payer MEDICARE, SELFPAY ==
--- NOTE | ~2025-10-31 | CT_ITS ---
EXAMINATION:CT diagnostic chest wo con DATE: 10/31/2025 11:11 INDICATION: Solitary pulmonary nodule. TECHNIQUE: Computed tomography (CT) of the chest was performed without intravenous contrast. Automated exposure control and iterative reconstruction technique were employed. The dose-length product (DLP) was 162.17 mGy-cm. COMPARISON: Chest 2 views 06/30/2023, CT abdomen and pelvis 10/12/2025, 09/06/2008 FINDINGS: There is mild emphysema. There is mild scarring in paraspinal right lower lobe. There is mild atelectasis bilaterally. There is an 11 mm nodule in right upper lobe. Calcified left lung nodules and calcified left hilar lymph nodes are consistent with old granulomatous disease. No pleural effusion. The heart size is normal. There are coronary artery calcifications. No pericardial effusion. There is mild bilateral gynecomastia. Calcifications in the spleen are consistent with old granulomatous disease. There are bridging endplate osteophytes at multiple levels in the spine, consistent with diffuse idiopathic skeletal hyperostosis (DISH). IMPRESSION: 1. 11 mm nodule in right lung upper lobe suspicious for primary bronchogenic carcinoma. PET/CT or 3 month noncontrast low-dose chest CT is recommended. Reviewed, dictated and finalized at location E. LETIONS ENGINEER IMPRESSION: 1. 11 mm nodule in right lung upper lobe suspicious for primary bronchogenic ca rcinoma. PET/CT or 3 month noncontrast low-dose chest CT is recommended.
== END 2025-10-31 10:46 | disposition home or self-care (01) ==
LOC: MICIMG 10:45
PROVIDERS: PCP Internal Medicine; Visit Provider Internal Medicine
DX: R91.1 Solitary pulmonary nodule (principal)
CPT/HCPCS: 71250

== ENCOUNTER 2025-11-03 10:36 | Outpatient (CLI) | payer MEDICARE, SELFPAY ==
--- NOTE | ~2025-11-03 | MR_ITS ---
EXAMINATION: MR ankle LT wo/w con DATE: 11/03/2025 11:47 INDICATION: Pain in left ankle and joints of the left foot TECHNIQUE: Magnetic resonance imaging (MRI) of the left ankle, mid and hindfoot was performed without and with 15 mL Multihance intravenous contrast. Sequences included sagittal, coronal, and axial. PD-weighted FS FSE and PD-weighted FSE, axial T1-weighted FSE, axial T1-weighted FS FSE, sagittal fluid sensitive FSE STIR and postcontrast axial, sagittal and coronal T1-weighted FS FSE. COMPARISON: Radiographs dated 10/13/2025 FINDINGS: Medial ankle ligaments: Intrasubstance heterotopic ossification within the deep deltoid ligament as well as heterotopic opacification at the tibial origin of the superficial deltoid ligament consistent with sequela of chronic sprains. The spring ligament complex is normal. Lateral ankle ligaments: The posterior inferior tibiofibular ligament is normal. There is additional small amounts of heterotopic ossification along the anterior inferior tibiofibular ligament consistent with sequela of chronic sprain. The anterior talofibular ligament is markedly attenuated consistent with a complete tear wit hout surrounding edema suggesting this is chronic. The calcaneofibular and posterior talofibular ligaments are normal. Tendons: Achilles tendon is normal. The peroneus longus and brevis tendons are normal. The tibialis anterior and extensor hallucis longus and extensor digitorum longus tendons are normal. The tibialis posterior, flexor digitorum longus and flexor hallucis longus tendons are normal. Plantar fascia: Mild thickening of the central component of the plantar aponeurosis small enthesophyte at its calcaneal origin consistent with chronic enthesopathy without associated marrow or soft tissue edema to suggest acute plantar fasciitis. Bones/other: Bone alignment is normal. There is normal marrow signal throughout with no reactive edema, fracture or pathologic marrow replacing process. 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 No erosions, joint effusions or synovitis to suggest septic or inflammatory arthritis. Enthesophytes along the dorsal navicular side of the talonavicular joint capsule. The vasculature appears normally opacified with contrast with normal flow voids on T2-weighted imaging in the dorsalis pedis and posterior tibial arteries. Subcutaneous edema about the visualized distal calf along with nonspecific increased fluid signal throughout the intrinsic musculature of the visualized foot and distal calf. No tenosynovitis, bursitis or other abnormal fluid collections identified. No abnormally enhancing lesions identified. IMPRESSION: 1. Stigmata of chronic medial and lateral ankle sprains including the deep and superficial deltoid ligament, anterior talofibular and anterior inferior tibiofibular ligaments. 2. 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 Joint spaces are otherwise unremarkable with no joint effusions or findings to suggest inflammatory arthritis. Reviewed, dictated and finalized at location A. [place] ZONE SPECIALIST IMPRESSION: 1. Stigmata of chronic medial and lateral ankle sprains including the deep and superficial deltoid ligament, anterior talofibular and anterior inferior tibiof ibular ligaments. 2. 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 Joint spaces a re otherwise unremarkable with no joint effusions or findings to suggest inflam matory arthritis.
== END 2025-11-03 10:37 | disposition home or self-care (01) ==
PROVIDERS: PCP Internal Medicine; Visit Provider Internal Medicine
DX: S93.491S Sprain of other ligament of right ankle, sequela (principal); S93.492S Sprain of other ligament of left ankle, sequela; X58.XXXS Exposure to other specified factors, sequela; M19.09 Primary osteoarthritis, other specified site; L03.116 Cellulitis of left lower limb
CPT/HCPCS: 73723; A9577

== ENCOUNTER 2025-11-21 09:03 | Outpatient (CLI) | payer MEDICARE, SELFPAY ==
--- NOTE | ~2025-11-21 | PE_ITS ---
EXAMINATION: PET skull to mid thigh DATE: 11/21/2025 11:03 INDICATION: Pulmonary nodule. TECHNIQUE: Blood glucose level was 196 mg/dL. 10.005 mCi of 18- fluorodeoxyglucose (18-FDG) was administered i.v. Low dose computed tomography (CT) images were acquired from the base of the brain to the proximal thighs for attenuation correction and anatomic localization. Automated exposure control was employed. Dose-length product (DLP) was 1044 mGy-cm. Positron emission tomography (PET) images were acquired in the same distribution. COMPARISON: Chest CT 10/31/2025 FINDINGS: Head/neck: There are no pathologically enlarged lymph nodes. Chest: There is a 10 mm nodule in right lung upper lobe without increased activity. There is mild atelectasis bilaterally. There is mild scarring in paraspinal right lower lobe. No pleural effusion. The heart size is normal. There are coronary artery calcifications. No pericardial effusion. There is a small sliding hiatal hernia. There is mild bilateral gynecomastia. Abdomen/pelvis/proximal thighs: The liver is normal. There are gallstones in the gallbladder, which is normal in size. Calcifications in the spleen are consistent with old granulomatous disease. There are calcifications in the pancreas, consistent with chronic pancreatitis. The adrenal glands are normal. There are cysts in the kidneys measuring up to 3.2 cm on the right. There are 2 stones in right kidney measuring up to 8 mm. There are 5 stones in left kidney measuring up to 13 mm. There is a 13 mm hemorrhagic cyst in left kidney. The prostate is mildly enlarged. There is a left inguinal hernia containing fat. There are no dilated loops of bowel. There is a supraumbilical ventral hernia containing fat. There are changes of posterior fusion procedure at L5-S1. IMPRESSION: 1. 10 mm nodule in right lung upper lobe without increased activity, probably benign. Noncontrast chest CT is recommended in 6 months. Reviewed, dictated and finalized at location E. IZER IMPRESSION: 1. 10 mm nodule in right lung upper lobe without increased activity, probably b enign. Noncontrast chest CT is recommended in 6 months.
--- OUTSIDE RECORDS SUMMARY | 2025-11-21 09:18 | XMS_ITS | Clinical Summary ---
Author Organization [facility] Care Team Providers Care Pathology Laboratory Technologist Name Role Phone Unavailable Primary Care Provider [...]
--- OUTSIDE RECORDS SUMMARY | 2025-11-21 09:18 | XMS_ITS | Patient Health Record ---
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
--- OUTSIDE RECORDS SUMMARY | 2025-11-21 09:18 | XMS_ITS | Clinical Summary ---
Author Organization [facility] Address [address] [place] [address] Care Team Providers Care Bankruptcy Processor Name Role Phone Clifton Dailey DO Primary Care Provider [phone] Natanael Parrish MD Unavailable [phone] Allergies No known active allergies Medications metFORMIN [...] Syringe (ml)SQas directedInject 1 syringe (100mcg) SQ [id number]/16/2014Continu e 11/16/20 14 Active omeprazole (PriLOSEC) 20 [...] Description 09/19/2025 2:45 PM CDT Office Visit [facility] [address] [place] [address] Medical Office [facility] [address] [place] [phone] Rosy Jeronimo, ALEAH AVM (arteriovenous malformation) (Primary Dx); Iron deficiency anemia due to chronic blood loss; Antiphospholipid syndrome 09/19/2025 2:15 PM CDT Lab [address] [place] [address] AVM (arteriovenous malformation); Antiphospholipid syndrome; AVM (arteriovenous malformation) of colon with hemorrhage; Iron deficiency anemia due to chronic blood loss 09/13/[address] [place] [address] Herminia Acosta, RN 09/13/[address] [facility] [address] [place] [address] Medical Office [address] [place] [phone] Nargis Nick CLT from Last 3 Months Immunizations Immunization Administration Dates Next Due COVID-19 mRNA (TRData) 0.3 m L (30 mcg) vaccine (12 [...] of DVT, lupus anticoagulant, H. 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 Gender Identity Not on file Sexual Orientation [...] - 6.50 K/cumm Comment:Testing performed by : [facility], [place], [address] Imm gran abs 0.03 0.00 - 0.10 K/cumm [facility] ([place]) Comment:Testing performed by : [facility], [facility], [place], [address] Lymphocyte abs 1.21 0.80 - 3.30 K/cumm [facility] ([place]) Comment:Testing performed by : [facility], [facility], [place], [address] Monocyte abs 0.24 0.20 - 0.80 K/cumm [facility] ([place]) Comment:Testing performed by : [facility], [facility], [place], [address] Eosinophil abs 0.22 0.00 - 0.50 K/cumm [facility] ([place]) Comment:Testing performed by : [facility], [facility], [place], [address] Basophil abs 0.05 0.00 - 0.10 K/cumm [facility] ([place]) Comment:Testing performed by : [facility], [place], [address] Neutrophil pct 71.5 % [facility]) Comment: Differential consistent with previous result. Interpretive Data Percent cell count reference ranges are not reported, since discordance with absolute values may lead to misinterpretation of CBC data. Current Interpretive Data was last revised on 2018. Testing performed by: [facility], [facility], [place], [address] Imm gran pct 0.5 % [facility] ([place]) Comment: Interpretive Data Percent cell count reference ranges are not reported, since discordance with absolute values may lead to misinterpretation of CBC data. Current Interpretive Data was last revised on 2018. Testing performed by: [facility], [place], [address] Lymphocyte pct 19.7 % [facility]) Comment: Interpretive Data Percent cell count reference ranges are not reported, since discordance with absolute values may lead to misinterpretation of CBC data. Current Interpretive Data was last revised on 2018. Testing performed by: [place], [address] Monocyte pct 3.9 % [facility] ([place]) Comment: Interpretive Data Percent cell count reference ranges are not reported, since discordance with absolute values may lead to misinterpretation of CBC data. Current Interpretive Data was last revised on 2018. Testing performed by: [facility], [place], [address] Eosinophil pct 3.6 % [facility]) Comment: Interpretive Data Percent cell count reference ranges are not reported, since discordance with absolute values may lead to misinterpretation of CBC data. Current Interpretive Data was last revised on 2018. Testing performed by: [facility], [place], [address] Basophil pct 0.8 % [facility] ([place]) Comment: Interpretive Data Percent cell count reference ranges are not reported, since discordance with absolute values may lead to misinterpretation of CBC data. Current Interpretive Data was last revised on 2018. Testing performed by: [facility], [place], [address] Blood 09/19/2025 1:40 PM CDT 09/19/2025 2:30 PM CDT us Natanael Parrish MD LAB BLOOD ORDERABLES Johana tran Result [facility] ([place]) 1 [facility] [place] [address] * Iron profile w/ IBC (09/19/2025 1:40 PM CDT) Iron 133 50 - 150 mcg/dL Comment:Testing performed by : [facility], [place], [address] TIBC 372 250 - 400 mcg/dL [facility] ([place]) Comment:Testing performed by : [facility], [place], [address] Transferrin saturation 36 20 - 50 % [facility]) Comment:Testing performed by : [facility], [place], [address] Blood 09/19/2025 1:40 PM CDT 09/19/2025 2:11 PM CDT us Rosy Jeronimo PROJECT PLANNER LAB BLOOD ORDERABLES Final Result [facility] ([place]) [facility] [place] [address] * (ABNORMAL) CBC with auto differential (09/19/2025 1:40 PM CDT) WBC 6.15 3.80 - 9.90 K/cumm Comment:Testing performed by : [place], [address] Hgb 11.3(L) 13.0 - 17.5 g/dL [facility] ([place]) Comment:Testing performed by : [place], [address] Hct 34.5(L) 38.9 - 50.3 % [facility] ([place]) Comment:Testing performed by : [place], [address] Plt 225 150 - 400 K/cumm [facility] ([place]) Comment:Testing performed by : [place], [address] MPV 9.5 9.1 - 12.3 fL [facility] ([place]) Comment:Testing performed by : [place], [address] RBC 3.38(L) 4.30 - 5.80 M/cumm [facility] ([place]) Comment:Testing performed by : [place], [address] MCV 102.1(H) 81.3 - 96.4 fL [facility] ([place]) Comment:Testing performed by : [facility], [place], [address] MCH 33.4(H) 27.1 - 33.3 pg [facility] ([place]) Comment:Testing performed by : [place], [address] MCHC 32.8 32.3 - 35.7 g/dL [facility] ([place]) Comment:Testing performed by : [place], [address] RDW CV 15.2(H) 11.1 - 14.9 % [facility] ([place]) Comment:Testing performed by : [place], [address] RDW SD 57.1(H) 35.7 - 48.1 fL [facility] ([place]) Comment:Testing performed by : [facility], [place], [address] NRBC abs 0.00 0.00 - 0.01 K/cumm [facility] ([place]) Comment:Testing performed by : [place], [address] Blood 09/19/2025 1:40 PM CDT 09/19/2025 2:30 PM CDT us Natanael Parrish MD LAB BLOOD ORDERABLES Johana l Result [facility] ([place]) [address] [place] [address] [place] [address] * Folate (09/19/2025 1:40 PM CDT) Folic acid >20.0 >=5.0 ng/mL Comment:Testing performed by : [place], [address] Blood 09/19/2025 1:40 PM CDT 09/19/2025 3:14 PM CDT us Rosy Jeronimo NP LAB BLOOD ORDERABLES Final Result [facility] ([place]) [address] [place] [address] [place] [address] * Ferritin (09/19/2025 1:40 PM CDT) Ferritin 73 30 - 400 ng/mL Comment:Testing performed by : [place], [address] Blood 09/19/2025 1:40 PM CDT 09/19/2025 2:11 PM CDT us Rosy Jeronimo PROJECT PLANNER LAB BLOOD ORDERABLES Final Result [facility] [place] [address] * Vitamin B12 (09/19/2025 1:40 PM CDT) Vitamin B12 902 230 - 1,250 pg/mL Comment:Testing performed by : [place], [address] Blood 09/19/2025 1:40 PM CDT 09/19/2025 3:14 PM CDT us Rosy Jeronimo PROJECT PLANNER LAB BLOOD ORDERABLES Final Result [facility] ([place] 1 [facility] [place] [address] * eGFR (02/20/2025 2:20 PM CDT) eGFR [...] was last reviewed 2021. Testing performed by: [place], [address] Blood 02/20/2025 2:20 PM CDT 02/20/2025 3:19 PM CDT us Natanael Parrish MD LAB BLOOD ORDERABLES Johana l Result Performing Organization Address City/[facility]/ZIP Co de Phone Number [facility] ([place]) [facility] [place] [address] * (ABNORMAL) Hemoglobin A1c (08/04/2024 9:05 AM CDT) Hgb A1C 10.8(H) 4.0 - 5.6 % Comment:Testing performed by : [place], [address] Estimated Average Glucose 263 mg/dL [facility] ([place]) Comment: The ADA recommends reporting an estimated Average Glucose (eAG) with all Hemoglobin A1c results using the equation derived from a study of 507 normal and diabetic adults. Minority populations were underrepresented and children were not included. (Diabetes Care 31:9114-5850, 2008). The eAG is not equivalent to a fasting glucose. Testing performed by: [place], [address] Blood 08/04/2024 9:05 AM CDT 08/04/2024 9:24 AM CDT us Wilian Nation MD LAB BLOOD ORDERABLES Final Re sult [facility] ([place]) [facility] [place] [address] from Last 3 Months or Most Recently Relevant to Health Maintenance Insurance [facility] [place] [phone] [facility] [place] [phone] Care Teams Bankruptcy Processor Relationship Specialty Start Date End Date Clifton Dailey DO PCP - General 05/02/09 Natanael Parrish MD [address] [place] [address] [place] [address] Medical Oncologist/Bone Density Technician Medical Oncology 05/18/25
== END 2025-11-21 09:04 | disposition home or self-care (01) ==
PROVIDERS: PCP Internal Medicine; Visit Provider Internal Medicine
DX: R91.1 Solitary pulmonary nodule (principal)
CPT/HCPCS: 78815; A9552